=== PATIENT | male | born 2000 | race Hispanic/Latino ===

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

== ENCOUNTER 2024-06-19 17:10 | Inpatient (IN) | payer SELFPAY ==
[~2024-06-19] VITALS: Ht 167.6 cm; Wt 75.0 kg
--- NOTE | 2024-06-19 17:25 | ERN ---
ED Note History of Present Illness Stated Complaint: NAUSEA Chief Complaint: Nausea,Vomiting,Diarrhea Time Seen by MD: 17:13 Time Seen by Midlevel: 17:13 Dictation: The patient is a 23-year-old male with a history of gastritis and THC abuse who presents to the emergency department with complaints of a right upper and lower abdominal pain, nausea, nonbloody vomiting, diarrhea onset two weeks ago. Patient denies any fevers. Reports last THC abuse yesterday. Denies any urinary discomfort. Allergies: Coded Allergies: metoclopramide (Unverified Allergy, Unknown, 06/19/24) Past Medical History Past Medical History: No Pertinent History Surgical History: None RN Note Reviewed/Agreed w/PFSH: Yes Review of System Dictation Constitutional: Negative for fever,chills, and weight loss Eyes: Negative for injury, pain,redness, and discharge ENT: Negative for injury,pain or swelling Cardiovascular: Negative for chest pain, palpitations, and edema Respiratory: Negative for shortness of breath, cough, and wheezing, Abdomen/GI: Negative for constipation positive for nausea vomiting diarrhea abdominal pain Back: Negative for injury and pain : Negative for injury, bleeding and discharge MS/Extremity: Negative for injury and deformity Skin: Negative for rash, and discoloration Neuro: Negative for headache, weakness, numbness, tingling, and seizure Psych: Negative for suicide ideation, homicidal ideation, and hallucinations Initial Vital Sign VS Vital Signs Date Time Temp Pulse Resp B/P (MAP) Pulse Ox O2 Delivery O2 Flow Rate FiO2 06/19/24 17:12 98.1 116 16 146/101 98 Room Air 0 Physical Exam Dictation Vital Signs reviewed General Appearance: Alert, oriented x 3, no acute distress, well developed, nourished. Head and Face: non-traumatic. Eyes: PERRL, pink conjunctivas, eyelid no trauma, anterior chamber with arcus senilis. Ears: Pinnas intact and no signs of trauma or erythema ear canals clear and no discharge TM no erythema Nose: No discharge, no bleeding. Oropharynx: Mouth normal, tongue pink. pharynx clear,no erythema, tonsils no exudates, no abscesses noted, mucous membrane moist Neck: Supple, non-tender, no thyromegaly, no masses, no JVD, no bruits Breast:Deferred Chest:No tenderness, no crepitus, no paradoxical movement, no retractions Lungs:Clear, well-ventilated, symmetric, no rales, no wheezing, no rhonchi, no stridor, good breath sounds bilaterally Heart: Regular rate, regular rhythm, no murmur, no gallops Vascular: no peripheral edema, Abdomen: Soft, positive bowel sounds, nondistended, no guarding, nontender, no rebound, no masses no hepatomegaly, no splenomegaly, no Jung's sign, no hernias. Rectal: Deferred Genital: Deferred Neurological: Normal speech, motor function intact, sensory function intact Musculoskeletal: Neck nontender, full range of motion, back nontender, full range of motion, Extremities: nontender, full range of motion Skin: Color pink, dry, no turgor, no rash, no lacerations, no abrasions, no contusions. Lymphatic: Deferred Results (Laboratory/Radiology) Laboratory/Radiology Laboratory Tests Test 06/19/24 11:24 White Blood Count 9.2 K/uL (4.8-10.8) Red Blood Count 5.96 MIL/uL (4.50-6.20) Hemoglobin 17.5 g/dL (14.0-18.0) Hematocrit 52.1 % (42-54) Mean Corpuscular Volume 87.4 fL (79-99) Mean Corpuscular Hemoglobin 29.4 pg (27.0-33.0) Mean Corpuscular Hemoglobin Concent 33.6 g/dL (32.0-36.0) Red Cell Distribution Width 13.2 % (11.0-15.5) Platelet Count 338 K/uL (130-400) Mean Platelet Volume 10.4 fL (7.5-10.5) Immature Granulocyte % (Auto) 0.4 % (0-1) Neutrophils (%) (Auto) 90.3 % (40.0-77.0) H Lymphocytes (%) (Auto) 3.7 % (21.0-51.0) L Monocytes (%) (Auto) 5.4 % (3.0-13.0) Eosinophils (%) (Auto) 0.0 % (0.0-8.0) Basophils (%) (Auto) 0.2 % (0.0-5.0) Neutrophils # (Auto) 8.3 K/uL (1.8-7.7) H Lymphocytes # (Auto) 0.3 K/uL (1.0-4.8) L Monocytes # (Auto) 0.5 K/uL (0.1-1.0) Eosinophils # (Auto) 0.00 K/uL (0.00-0.70) Basophils # (Auto) 0.02 K/uL (0.00-0.20) Absolute Immature Granulocyte (auto 0.04 K/uL (0-1) Nucleated Red Blood Cells 0.0 % (0.0-0.19) White Cell Morphology Comment See comments Sodium Level 138 mmol/L (136-145) Potassium Level 3.5 mmol/L (3.5-5.1) Chloride Level 95 mmol/L (101-111) L Carbon Dioxide Level 29 mmol/L (21-32) Blood Urea Nitrogen 22 mg/dL (7-18) H Creatinine 2.3 mg/dL (0.5-1.3) H Glomerular Filtration Rate Calc 40 mL/min (>90) Random Glucose 178 mg/dL (70-105) H Total Calcium 11.2 mg/dL (8.5-10.1) H Magnesium Level 2.20 mg/dL (1.80-2.40) Total Bilirubin 0.5 mg/dL (0.2-1.0) Direct Bilirubin 0.1 mg/dL (0.0-0.3) Aspartate Amino Transf (AST/SGOT) 23 U/L (10-37) Alanine Aminotransferase (ALT/SGPT) 38 U/L (12-78) Alkaline Phosphatase 108 U/L (50-136) Total Protein 10.3 g/dL (6.0-8.3) H Albumin 5.1 g/dL (3.5-5.0) H Lipase 13 U/L (16-77) L Labs Reviewed?: Yes ED Course ED Course Orders Procedure Category Date Status Time Cbc With Differential LAB 06/19/24 Complete 17:22 Urinalysis Profile LAB 06/19/24 Logged 17:22 0.9%Nacl 1000ml (Ns PHA 06/19/24 Complete 1000ml) 17:30 Ondansetron 4mg Inj PHA 06/19/24 Complete (Zofran 4mg Inj) 17:30 Pantoprazole 40mg Inj PHA 06/19/24 Complete (Protonix 40mg Inj 17:30 Lipase LAB 06/19/24 Complete 17: Basic Metabolic Panel LAB 06/19/24 Complete : Drug Screen Urine LAB 06/19/24 Logged : Hepatic Function Panel LAB 06/19/24 Complete : Magnesium LAB 06/19/24 Complete : Admit Orders ADM 06/19/24 Verified 20:42 Edm Admit Bridge Order ADM 06/19/24 Verified 20:42 Current Medications Medications (Trade) Dose Ordered Sig/Bee Route PRN Reason Start Time Stop Time Status Last Admin Dose Admin Ondansetron HCl (zoFRAN 4MG INJ) 4 mg ONCE ONCE IVP 06/19/24 17:30 06/19/24 17:31 DC Pantoprazole Sodium (PROTonix 40MG INJ) 40 mg ONCE ONCE IVP 06/19/24 17:30 06/19/24 17:31 DC Sodium Chloride 1,000 ml @ 0 mls/hr ONCE ONCE IV 06/19/24 17:30 06/19/24 17:31 DC Vital Signs Date Time Temp Pulse Resp B/P (MAP) Pulse Ox O2 Delivery O2 Flow Rate FiO2 06/19/24 17:12 98.1 116 16 146/101 98 Room Air 0 Medical Decision Making [facility] The patient is a 23-year-old male with a history of gastritis and THC abuse who presents to the emergency department with complaints of a right upper and lower abdominal pain, nausea, nonbloody vomiting, diarrhea onset two weeks ago. Patient denies any fevers. Reports last THC abuse yesterday. Denies any urinary discomfort. CBC showed no leukocytosis, no anemia, chemistry showed elevated BUN and creatinine, changed from previous admissions, hypochloremia. Patient will be admitted for hydration in management of acute kidney injury. Patient with a nontender abdomen to palpation. Differential diagnosis: Gastroenteritis, THC hyperemesis, electrolyte imbalance, dehydration Comorbidities: Gastritis, THC abuse Tests considered and not ordered secondary to shared decision making include: none Previous outside records reviewed: none Risk of complication and/or morbidity or mortality of patient management: The patient meets criteria for admission. Need for emergency major/minor surgery: No There are no social concerns with this patient. I independently interpreted the tests I ordered (labs, urinalysis, etc.). I discussed the case with the hospitalist for admission. ARNOLDO who accepts admission I discussed the case with the following specialists: none. Historian: [email or web address]. I independently interpreted imaging studies and EKGs that I ordered (US, CT, XR, EKG, etc.). External chart review: none. Medical management and examination interpretation discussions were had by me with other qualified healthcare professionals as indicated for the patient's care. DX & DISP Disposition: Inpatient Decision to Admit Date: Jun 19, 2024 Decision to Admit Time: 20:45 Departure Impression: Primary Impression: Acute kidney injury Additional Impressions: Dehydration, Gastroenteritis, Tetrahydrocannabinol (THC) dependence Condition: Stable Referrals: REINALDO JIMÉNEZ MD (PCP) I have reviewed the case, and I agree with, Diagnosis and Plan DIEGO JAMISON Jun 19, 2024 17:24
[2024-06-19 18:33] LABS: BASOPHILS # (AUTO) 0.02 K/uL (0.00-0.20); BASOPHILS % (AUTO) 0.2 % (0.0-5.0); HEMATOCRIT 52.1 % (42-54); IMMATURE GRANULOCYTE ABSOLUTE 0.04 K/uL (0-1); LYMPHOCYTES # (AUTO) 0.3 K/uL (1.0-4.8); LYMPHOCYTES % (AUTO) 3.7 % (21.0-51.0); MEAN CORPUSCULAR HEMOGLOBIN 29.4 pg (27.0-33.0); MEAN CORPUSCULAR HGB CONC 33.6 g/dL (32.0-36.0); MEAN CORPUSCULAR VOLUME 87.4 fL (79-99); MONOCYTES # (AUTO) 0.5 K/uL (0.1-1.0); MONOCYTES % (AUTO) 5.4 % (3.0-13.0); NEUTROPHILS # (AUTO) 8.3 K/uL (1.8-7.7); NEUTROPHILS % (AUTO) 90.3 % (40.0-77.0); PLATELET COUNT (AUTO) 338 K/uL (130-400); RED BLOOD CELL COUNT(AUTO) 5.96 MIL/uL (4.50-6.20); RED CELL DISTRIBUTION WIDTH 13.2 % (11.0-15.5); WHITE BLOOD COUNT (AUTO) 9.2 K/uL (4.8-10.8)
[2024-06-19 18:43] LABS: CREATININE 2.3 mg/dL (0.5-1.3); POTASSIUM 3.5 mmol/L (3.5-5.1)
[2024-06-19 18:48] LABS: ALBUMIN 5.1 g/dL (3.5-5.0); BILIRUBIN,DIRECT 0.1 mg/dL (0.0-0.3); BILIRUBIN,TOTAL 0.5 mg/dL (0.2-1.0); MAGNESIUM 2.2 mg/dL (1.80-2.40); TOTAL PROTEIN, SERUM 10.3 g/dL (6.0-8.3)
--- NOTE | 2024-06-19 21:50 | HP ---
[facility] HISTORY AND PHYSICAL Date of Service: Jun 19, 2024 Time of Service: 21:50 HISTORY OF PRESENT ILLNESS: [ The patient is a 23-year-old male presents to ED with complains of progressively worsening right upper quadrant pain associated with intractable nausea and vomiting for the past two days. The patient describes the pain as sharp, constant and radiating to the back with an intensity of 8 out of 10. Patient also reports that the pain is exacerbated by eating and drinking. The patient reports multiple episodes of non-bloody, non-bilious vomiting which have been relieved with Zofran on admission. Patient denies chills, fever, chest pain or shortness of breath. Patient also denies recent trauma, significant changes in bowel habits. Patient reports no esophageal or gastric conditions. He does reports history of THC use. . Patient is lying in bed, comfortably, pain has resolved with IV morphine. He appears in no acute cardiorespiratory distress. His vital signs includes temperature of 98.1, heart rate of 116, blood pressure of 146/101, and oxygen saturation of 98 on RA. His blood work up revealed acute kidney injury with BUN of 22, creatinine of 2.3, glucose 178, protein of 10.[address] of the abdomen and pelvis showed critical pneumomediastinum and retroperitoneal emphysema. CTS, was consulted. Patient will be transferred to higher level of care for possible emergency surgical intervention. ] REVIEW OF SYSTEMS CONSTITUTIONAL: Denies fevers, chills, or night sweats. No unintentional weight loss reported. NEUROLOGICAL: Denies headache, amaurosis fugax, motor weakness, sensory deficit, vertigo/spinning sensation, gait abnormalities, or tremors. ENT: No hearing loss, otalgia, otorrhea, rhinitis, rhinorrhea, hoarseness, or sore throat. CARDIOVASCULAR: Denies any exertional angina, dyspnea on exertion, orthopnea, paroxysmal nocturnal dyspnea, palpitations, life-threatening arrhythmias, claudication. PULMONARY: Denies any shortness of breath, cough, phlegm/sputum, hemoptysis, pleuritic chest pain. SLEEP: Denies morning headaches, daytime somnolence or napping. Denies difficulty falling asleep, staying asleep, waking from sleep. Denies knowledge of snoring. GASTROINTESTINAL: Denies any type of dysphagia to either liquids or solids. Positive for nausea, vomiting, pyrosis, early satiety, abdominal pain, diarrhea, constipation, or changes in stool consistency or caliber. Denies coffee-ground emesis, hematemesis, hematochezia, or melanotic stools. GENITOURINARY: Denies frequency, urgency, nocturia, hematuria or incontinence (Storage/Irritative symptoms.) Low urinary stream, straining to void, urinary intermittency or hesitancy, splitting of the voiding stream, terminal dribbling. ENDOCRINOLOGIC: Denies polyuria, polydipsia, polyphagia or heat/cold intolerances. HEMATOLOGIC: Denies thrombophilia/previous clots, or coagulopathy/bleeding disorders. ONCOLOGIC: Denies personal history of malignancy. DERMATOLOGIC: Denies rashes or pruritus. PSYCHIATRIC: Denies any suicidal or homicidal ideation. Denies hallucinations. PAST MEDICAL HISTORY: [ Intractable nausea and vomiting THC use ] PAST SURGICAL HISTORY: [Denies ] PAST SOCIAL HISTORY: [ Patient lives at home with grandmother who is at his bedside. Patient reports he is 100% independent with ADLs and does not requires assistance with ambulation. Patient denies the use of tobacco products, denies the use of alcohol. He admits to THC use occasionally. ] FAMILY HISTORY: [ Non-reported ] Coded Allergies: metoclopramide (Unverified Allergy, Unknown, 06/19/24) PHYSICAL EXAM GENERAL APPEARANCE: The patient is awake, alert, and oriented, in no acute cardiopulmonary distress. NEUROLOGICAL: Cranial nerves II-XII grossly intact. Motor is 5/5 in bilateral upper and lower extremities proximal to distal. No sensory deficits. HEENT: Face is symmetric. Pupils are equal and reactive. Extraocular movements are intact. NECK: Supple. No JVD. No thyromegaly. No submental, submandibular, pre- /postauricular, occipital or supraclavicular lymphadenopathy. CHEST: Normal chest expansion. No Telemetry. LUNGS: Absence of any rales, rhonchi or any wheezing. CARDIOVASCULAR: Regular. S1 and S2 normal. No appreciable rubs, murmurs or gallops. ABDOMEN: Soft, nontender, and nondistended. There is no rebound, voluntary guarding, or rigidity. : Deferred. No Iglesias. EXTREMITIES: Non-edematous and not cyanotic. No clubbing. Good capillary refill. SKIN: No skin breakdown. Vital Sign (Last 24 Hours) 06/19/24 17:12 Temp 98.1 Pulse 116 Resp 16 B/P (MAP) 146/101 Pulse Ox 98 O2 Delivery Room Air O2 Flow Rate 0 LABS: Laboratory: Test 06/19/24 11:24 Range/Units White Blood Count 9.2 4.8-10.8 K/uL Red Blood Count 5.96 4.50-6.20 MIL/uL Hemoglobin 17.5 14.0-18.0 g/dL Hematocrit 52.1 42-54 % Mean Corpuscular Volume 87.4 79-99 fL Mean Corpuscular Hemoglobin 29.4 27.0-33.0 pg Mean Corpuscular Hemoglobin Concent 33.6 32.0-36.0 g/dL Red Cell Distribution Width 13.2 11.0-15.5 % Platelet Count 338 130-400 K/uL Mean Platelet Volume 10.4 7.5-10.5 fL Immature Granulocyte % (Auto) 0.4 0-1 % Neutrophils (%) (Auto) 90.3 H 40.0-77.0 % Lymphocytes (%) (Auto) 3.7 L 21.0-51.0 % Monocytes (%) (Auto) 5.4 3.0-13.0 % Eosinophils (%) (Auto) 0.0 0.0-8.0 % Basophils (%) (Auto) 0.2 0.0-5.0 % Neutrophils # (Auto) 8.3 H 1.8-7.7 K/uL Lymphocytes # (Auto) 0.3 L 1.0-4.8 K/uL Monocytes # (Auto) 0.5 0.1-1.0 K/uL Eosinophils # (Auto) 0.00 0.00-0.70 K/uL Basophils # (Auto) 0.02 0.00-0.20 K/uL Absolute Immature Granulocyte (auto 0.04 0-1 K/uL Nucleated Red Blood Cells 0.0 0.0-0.19 % White Cell Morphology Comment See comments Sodium Level 138 136-145 mmol/L Potassium Level 3.5 3.5-5.1 mmol/L Chloride Level 95 L 101-111 mmol/L Carbon Dioxide Level 29 21-32 mmol/L Blood Urea Nitrogen 22 H 7-18 mg/dL Creatinine 2.3 H 0.5-1.3 mg/dL Glomerular Filtration Rate Calc 40 >90 mL/min Random Glucose 178 H 70-105 mg/dL Total Calcium 11.2 H 8.5-10.1 mg/dL Magnesium Level 2.20 1.80-2.40 mg/dL Total Bilirubin 0.5 0.2-1.0 mg/dL Direct Bilirubin 0.1 0.0-0.3 mg/dL Aspartate Amino Transf (AST/SGOT) 23 10-37 U/L Alanine Aminotransferase (ALT/SGPT) 38 12-78 U/L Alkaline Phosphatase 108 50-136 U/L Total Protein 10.3 H 6.0-8.3 g/dL Albumin 5.1 H 3.5-5.0 g/dL Lipase 13 L 16-77 U/L DIAGNOSTICS / RADIOLOGY: [ CT Abdomen and pelvis without contrast revealed pneumomediastinum and retroperitoneal emphysema ] ASSESSMENT: [ Pneumomediastinum and retroperitoneal emphysema POA Intractable right upper quadrant pain POA Intractable nausea and vomiting POA Acute kidney injury POA Electrolyte derangement POA THC dependency ] PLAN: [ Admit patient to ICU Critical care consulted Started Vancomycin and Zosyn per protocol for kidney function PRN medication for nausea, vomiting, pain as needed Consulted cardiothoracic surgeon for further recommendations for possible urgent surgical intervention Patient will be transferred to higher level care facility for CTS evaluation and treatment. Current Medications Medications (Trade) Dose Ordered Sig/Bee Route PRN Reason Start Time Stop Time Status Last Admin Acetaminophen (TYLenol 325MG TAB) 650 mg Q6H PRN PO TEMPERATURE GREATER THAN 101.5 06/20/24 02:00 07/20/24 01:59 Acetaminophen (TYLenol 325MG TAB) 650 mg Q4H PRN PO MILD PAIN (1-3) 06/20/24 02:00 07/20/24 01:59 Ondansetron HCl (zoFRAN 4MG INJ) 4 mg Q6H PRN IV NAUSEA/VOMITING 06/20/24 02:00 07/20/24 01:59 Sodium Chloride 1,000 ml @ 100 mls/hr Q10H IV 06/20/24 02:00 07/20/24 01:59 06/20/24 02:23 Hydromorphone HCl (DiLAUDid 1MG INJ) 0.5 mg Q4H PRN IV SEVERE PAIN (7-10) IF NPO 06/20/24 02:00 06/25/24 01:59 Famotidine (Pepcid 20mg Vial) 20 mg Q24H IV 06/20/24 09:00 07/20/24 08:59 Acetaminophen/ Codeine Phosphate (TYLenol-coDEINE TAB) 1 tab Q6H PRN PO MODERATE PAIN (4-6) 06/20/24 02:00 07/20/24 01:59 Acetaminophen/ Codeine Phosphate (TYLenol-coDEINE TAB) 2 tab Q6H PRN PO SEVERE PAIN (7-10) 06/20/24 02:00 07/20/24 01:59 Piperacillin Sod/ Tazobactam Sod (Zosyn 3.375gm+NS 50ml) 3.375 gm Q8H IVPB 06/20/24 03:30 06/30/24 03:29 06/20/24 03:22 Vancomycin HCl (Vancomycin Protocol) 1 each AD IV 06/20/24 04:00 07/04/24 03:59 UNV ADVANCED CARE PLANNING 1. Which of the following were discussed? Hospice Care - Yes / No Therapeutic options - Yes / No Advance Directives - Yes / No Other discussions - 2. Discussed with who? patient and grandmother 3. Voluntary nature of this service was explained to the patient? Yes / No 4. Amount of time spent - ___30 min ____ 5. Reviewed by Physician? (if this service was performed by NPP) Yes / No ] ATTESTATION BY PHYSICIAN I have seen and examined the patient. I reviewed the documentation, medical decision making, and treatment plan as noted by the mid-level provider above. I agree with the findings and plan of care. REE ARREDONDO MD, MARIA I JAVA [employer] DEVELOPER Jun 19, 2024 21:50
[2024-06-19] MEDS: ondanSETRON 4MG INJ IVP ONE ×2 (22:03→22:07)
[2024-06-19] MEDS: PANTOPrazole 40 MG/VIAL IVP ONE ×2 (22:04→22:06)
[2024-06-19] MEDS: 0.9%NACL 1000ML 1,000 ML IV ONE ×2 (22:04→22:06)
--- NOTE | 2024-06-19 22:06 | NUR ---
PROTONIX 40MG IS DOCUMENTED IN ERROR [id number]. MEDICATION WAS ADMINISTERED AT 2204 AND NOT ADMINISTERED A SECOND TIME AT 2206.
--- NOTE | 2024-06-19 22:43 | NUR ---
Assumed care at this time, patient presents with nausea and vomiting. Reported some abdominal pain earlier. Last bowel movement was this AM, reported to be watery, denies antibiotic useage. Pain was more on the right side. Denies urinary symptoms. Admits to smoking weed and reports he gets like this when he does it.
--- NOTE | 2024-06-20 00:06 | NUR ---
Patient given PO fluids, tolerated well.
--- NOTE | 2024-06-20 00:11 | NUR ---
Patient marked as admit, pending admission orders from admitting provider. Patient resting comfortably in fast track recliner. No distress noted, family member with patient.
--- NOTE | 2024-06-20 00:33 | NUR ---
Patient moved to ED bed room 1, pending admit orders at this time.
--- NOTE | 2024-06-20 01:03 | NUR ---
Report given to SYLVAIN VelascoN
[2024-06-20] MEDS ORDERED: acetaMINOPHEN WITH coDEINE 1 TAB TAB PO PRN (02:00)
[2024-06-20] MEDS ORDERED: acetaMINOPHEN 325 MG TAB PO PRN ×2 (02:00)
[2024-06-20] MEDS: 0.9%NACL 1000ML 1,000 ML IV SCH (02:23)
[2024-06-20] MEDS: cefTRIAXone 1G VIAL IV SCH (02:23)
[2024-06-20] MEDS ORDERED: 0.9%NACL 50ML IV SCH (03:00)
--- NOTE | 2024-06-20 03:11 | NUR ---
PATIENT REPORTS HE DOES NOT TAKE ANY PRESCRIBED MEDICATIONS
[2024-06-20] MEDS: ZOSYN 3.375GM +NS 50ML IVPB SCH (03:22)
--- NOTE | 2024-06-20 03:22 | ERN ---
CONSULTATION NOTE DATE OF ER CONSULTATION: DATE: 06/20/24 REASON FOR CONSULTATION: Was given a around 3:00 a.m.. Was given stat rad report. Of patient with pneumomediastinum and retroperitoneal emphysema. Patient was admitted gastroenteritis and ROBBIE. Immediately had spoke to admitting team Gemini zhong. And also to add page Dr. Jaimes he did not answer. I spoke to housekeeping supervisor hotel. We will do continue to page Dr. Jaimes. Also starting vinny and Robin. And also told as well Gamble the page her supervising physician critical care of Dr. hussein and/or also two to transfer to [facility]. Cardiothoracic may be covered also by [facility]. Against speaking with the nurse and house and admitting team to admit to a higher level Total critical care time was 33 minutes. Excluding time for procedures. Management of critically ill patient with concern for acute decompensation. Management included interpretation of laboratory values and imaging, hemodynamics, time for consultation with consultants and admitting physician. For observation and/or possible surgery patient uses and fluid hydration ALLERGIES: Coded Allergies: metoclopramide (Unverified Allergy, Unknown, 06/19/24) VITAL SIGNS Vital Signs Date Time Temp Pulse Resp B/P (MAP) Pulse Ox O2 Delivery O2 Flow Rate FiO2 06/20/24 02:41 98.4 61 18 157/83 100 Room Air* 0 21 06/20/24 00:06 98.4 17 158/99 100 Room Air* 0 21 06/19/24 22:41 98.4 88 17 169/104 100 Room Air* 0 06/19/24 17:12 98.1 116 16 146/101 98 Room Air 0 PHYSICAL EXAM Patient's physical exam is currently benign he is not have any abdominal pain no acute distress nontoxic appearing vitals are stable. He is not have any pain anywhere else he said he feels fine a we spoke about transferring to a higher level care LABORATORY RESULTS Laboratory Tests 06/19/24 11:24: White Blood Count 9.2, Red Blood Count 5.96, Hemoglobin 17.5, Hematocrit 52.1, Mean Corpuscular Volume 87.4, Mean Corpuscular Hemoglobin 29.4, Mean Corpuscular Hemoglobin Concent 33.6, Red Cell Distribution Width 13.2, Platelet Count 338, Mean Platelet Volume 10.4, Immature Granulocyte % (Auto) 0.4, Neutrophils (%) (Auto) 90.3, Lymphocytes (%) (Auto) 3.7, Monocytes (%) (Auto) 5.4, Eosinophils (%) (Auto) 0.0, Basophils (%) (Auto) 0.2, Neutrophils # (Auto) 8.3, Lymphocytes # (Auto) 0.3, Monocytes # (Auto) 0.5, Eosinophils # (Auto) 0.00, Basophils # (Auto) 0.02, Absolute Immature Granulocyte (auto 0.04, Nucleated Red Blood Cells 0.0, White Cell Morphology Comment See comments, Sodium Level 138, Potassium Level 3.5, Chloride Level 95, Carbon Dioxide Level 29, Blood Urea Nitrogen 22, Creatinine 2.3, Glomerular Filtration Rate Calc 40, Random Glucose 178, Total Calcium 11.2, Magnesium Level 2.20, Total Bilirubin 0.5, Direct Bilirubin 0.1, Aspartate Amino Transf (AST/SGOT) 23, Alanine Aminotransferase (ALT/SGPT) 38, Alkaline Phosphatase 108, Total Protein 10.3, Albumin 5.1, Lipase 13 PREMA CHAUDHRY MD Jun 20, 2024 03:22
[2024-06-20] MEDS: hydroMORPHone 1 MG INJ IV PRN (03:44)
[2024-06-20] MEDS: ondanSETRON 4MG INJ IV PRN (03:48)
--- NOTE | 2024-06-20 03:49 | NUR ---
Lolly VINES HOTEL [employer] CON[employer]ER[employer] MADE AWARE OF CRITICAL CARE CONSULT
[2024-06-20] MEDS: HALOPERIDOL INJ 5 MG/ML VIAL IM ONE (03:53)
--- NOTE | 2024-06-20 03:55 | ERN ---
CONSULTATION NOTE DATE OF ER CONSULTATION: DATE: 06/20/24 ALLERGIES: Coded Allergies: metoclopramide (Unverified Allergy, Unknown, 06/19/24) VITAL SIGNS Vital Signs Date Time Temp Pulse Resp B/P (MAP) Pulse Ox O2 Delivery O2 Flow Rate FiO2 06/20/24 02:41 98.4 61 18 157/83 100 Room Air* 0 06/20/24 00:06 98.4 17 158/99 100 Room Air* 0 06/19/24 22:41 98.4 88 17 169/104 100 Room Air* 0 06/19/24 17:12 98.1 116 16 146/101 98 Room Air 0 PHYSICAL EXAM Patient's physical exam is currently benign he is not have any abdominal pain no acute distress nontoxic appearing vitals are stable. He is not have any pain anywhere else he said he feels fine a we spoke about transferring to a higher level care LABORATORY RESULTS Laboratory Tests 06/19/24 11:24: White Blood Count 9.2, Red Blood Count 5.96, Hemoglobin 17.5, Hematocrit 52.1, Mean Corpuscular Volume 87.4, Mean Corpuscular Hemoglobin 29.4, Mean Corpuscular Hemoglobin Concent 33.6, Red Cell Distribution Width 13.2, Platelet Count 338, Mean Platelet Volume 10.4, Immature Granulocyte % (Auto) 0.4, Neutrophils (%) (Auto) 90.3, Lymphocytes (%) (Auto) 3.7, Monocytes (%) (Auto) 5.4, Eosinophils (%) (Auto) 0.0, Basophils (%) (Auto) 0.2, Neutrophils # (Auto) 8.3, Lymphocytes # (Auto) 0.3, Monocytes # (Auto) 0.5, Eosinophils # (Auto) 0.00, Basophils # (Auto) 0.02, Absolute Immature Granulocyte (auto 0.04, Nucleated Red Blood Cells 0.0, White Cell Morphology Comment See comments, Sodium Level 138, Potassium Level 3.5, Chloride Level 95, Carbon Dioxide Level 29, Blood Urea Nitrogen 22, Creatinine 2.3, Glomerular Filtration Rate Calc 40, Random Glucose 178, Total Calcium 11.2, Magnesium Level 2.20, Total Bilirubin 0.5, Direct Bilirubin 0.1, Aspartate Amino Transf (AST/SGOT) 23, Alanine Aminotransferase (ALT/SGPT) 38, Alkaline Phosphatase 108, Total Protein 10.3, Albumin 5.1, Lipase [address] Jaimes multiples times, had not answered. Then we went on the 2nd on the list it was Dr. Mariah Levy and he recommended patient be transferred to [facility] spoke to patient and spoke to the nurse in charge nurse and junior legal secretary. It for to start transfer PREMA CHAUDHRY MD Jun 20, 2024 03:55
[2024-06-20] MEDS ORDERED: VANCOMYCIN PROTOCOL PER PHARMACY IV SCH (04:00)
[2024-06-20] MEDS: VANCOMYCIN 2GM/500 ML BAG 500 ML IV ONE (04:33)
[2024-06-20 05:18] LABS: BASOPHILS # (AUTO) 0.01 K/uL (0.00-0.20); BASOPHILS % (AUTO) 0.1 % (0.0-5.0); HEMATOCRIT 45.9 % (42-54); IMMATURE GRANULOCYTE ABSOLUTE 0.03 K/uL (0-1); LYMPHOCYTES # (AUTO) 0.6 K/uL (1.0-4.8); LYMPHOCYTES % (AUTO) 8.1 % (21.0-51.0); MEAN CORPUSCULAR HEMOGLOBIN 29.6 pg (27.0-33.0); MEAN CORPUSCULAR HGB CONC 33.8 g/dL (32.0-36.0); MEAN CORPUSCULAR VOLUME 87.8 fL (79-99); MONOCYTES # (AUTO) 1.1 K/uL (0.1-1.0); MONOCYTES % (AUTO) 14.4 % (3.0-13.0); NEUTROPHILS # (AUTO) 5.8 K/uL (1.8-7.7); PLATELET COUNT (AUTO) 297 K/uL (130-400); RED BLOOD CELL COUNT(AUTO) 5.23 MIL/uL (4.50-6.20); RED CELL DISTRIBUTION WIDTH 13.2 % (11.0-15.5); WHITE BLOOD COUNT (AUTO) 7.5 K/uL (4.8-10.8)
--- NOTE | 2024-06-20 05:20 | NUR ---
TRANSFER REQUEST INITIATED TO [facility] [place] AT THIS TIME.
[2024-06-20 05:34] LABS: ALBUMIN 4.2 g/dL (3.5-5.0); BILIRUBIN,TOTAL 0.5 mg/dL (0.2-1.0); CREATININE 1.3 mg/dL (0.5-1.3); POTASSIUM 4.1 mmol/L (3.5-5.1); TOTAL PROTEIN, SERUM 8.1 g/dL (6.0-8.3)
[2024-06-20 05:39] LABS: HEMOGLOBIN A1C 5.6 % (4.0-6.0)
--- NOTE | 2024-06-20 06:02 | NUR ---
RECEIVED CALL FROM [facility]. TRANSFER DENIED DUE TO COMPLEXITY OF CASE PER CARDIOTHORACIC SURGEON [employer]OT[employer] SALES MANAGER.
--- NOTE | 2024-06-20 06:09 | NUR ---
TRANSFER REQUEST INITIATED AT THIS TIME TO [facility].
--- NOTE | 2024-06-20 08:39 | HMCIMG ---
Exam Type: CHEST 1VW Clinical Information: pneumomediastinum per CT abd Comparison: None Findings: The lungs are clear of infiltrates. The heart is enlarged. Bony and soft tissue structures of the chest wall are unremarkable. IMPRESSION: Cardiomegaly. Clear lungs.
--- NOTE | 2024-06-20 08:51 | HMCIMG ---
Exam Type: CT ABDOMEN/PELVIS W/O CONTRAST Clinical Information: right upper quadrant pain, Comparison: None CT Dose Index (CTDI): 10.20 mGy Dose Length Product (DLP): 530.00 total mGy-cm PROTOCOL: Routine noncontrast helical scanning of the abdomen and pelvis was performed at 5mm collimation. Findings: No evidence of nephro or ureterolithiasis is found. No hydronephrosis or ureteral dilatation is seen. The lung bases are clear. There is mild pneumomediastinum. The stomach is unremarkable. It shows no wall thickening. No gross ulceration is seen. It is not overly distended. There are no surrounding inflammatory changes. No wall lesions are identified to suggest cancer. The spleen is unremarkable. It is not enlarged. The pancreas shows normal anatomy. It is not fatty replaced. It shows no lesions. The pancreatic duct is not dilated. The gallbladder is unremarkable. It shows no cholelithiasis. The gallbladder wall is normal in thickness. There is no pericholecystic fluid. The is no acute or chronic inflammation noted. The adrenal glands are unremarkable. There is no enlargement. No lesions are noted. The liver is unremarkable. It shows no focal masses. The appendix is unremarkable. It shows no evidence of inflammation. No appendicolith is seen. The small bowel is unremarkable. There is no evidence of dilatation to suggest obstruction. No evidence of adynamic ileus is seen. There is no small bowel wall thickening to suggest enteritis. The colon is unremarkable. The urinary bladder is unremarkable. There is no wall thickening to suggest tumor or inflammation. There are no intraluminal calculi. There are no diverticula. There is no evidence of chronic bladder outlet obstruction. There is no evidence of urinary bladder distention to suggest urinary retention. The other pelvic structures are unremarkable. The bony and vascular structures are unremarkable for the patient's age. IMPRESSION: Mild pneumomediastinum. Otherwise normal CT abdomen pelvis. Preliminary report with this information was sent by the on-call radiologist to ordering physicians time of exam.. This study was performed using dose reduction techniques to include automated exposure control and/or adjustment of the mA and/or kV according to patient size.
[2024-06-20] MEDS: FAMOTIDINE 20MG VIAL IV SCH (08:53)
--- NOTE | 2024-06-20 11:17 | NUR ---
DCp: POSSIBLE TRANSFER FOR HIGH LEVEL OF CARE. SW met with pt and his grandmother Rahel Wagner [phone]. Pt lives with his grandmother, works, drives, is independent of ADLS and IADLS. No in home care services, no PCP. Community resources given. Per nurse house working on possible transfer.
[2024-06-20] MEDS: acetaMINOPHEN WITH coDEINE 1 TAB TAB PO PRN (11:37)
--- NOTE | 2024-06-20 15:51 | PN ---
[facility] PROGRESS NOTE Date of Service: Jun 20, 2024 Time of Service: 15:45 SUBJECTIVE: 23-year-old male presents to ED with complains of progressively worsening right upper quadrant pain associated with intractable nausea and vomiting for the past two days. The patient describes the pain as sharp, constant and radiating to the back with an intensity of 8 out of 10. Patient also reports that the pain is exacerbated by eating and drinking. The patient reports multiple episodes of non-bloody, non-bilious vomiting which have been relieved with Zofran on admission. Patient denies chills, fever, chest pain or shortness of breath. Patient also denies recent trauma, significant changes in bowel habits. Patient reports no esophageal or gastric conditions. He does reports history of THC use. . CT of the abdomen and pelvis showed critical pneumomediastinum and retroperitoneal emphysema. CTS, was consulted. Patient will be transferred to higher level of care for possible emergency surgical intervention. Chest x-ray noted for cardiomegaly Dr. Mariah Levy and he recommended patient be transferred to [place] or [place]. [facility] center spoke to patient and spoke to the nurse in charge nurse and membership secretary, It for to start transfer. 06/20-Patient was seen at sleeping, with his mother at the bedside. Vitals afebrile pulse 63, RR 16, BP 151/85, 99 saturation on room air. WBC 7.5, HB 15.5, sodium 139, potassium 4.1, BUN25 , creatinine 1.3 . Critical care consult noted. Patient is currently on vancomycin and Zosyn. REVIEW OF SYSTEMS CONSTITUTIONAL: Denies fevers, chills, or night sweats. No unintentional weight loss reported. NEUROLOGICAL: Denies headache, amaurosis fugax, motor weakness, sensory deficit , vertigo/spinning sensation, gait abnormalities, or tremors. ENT: No hearing loss, otalgia, otorrhea, rhinitis, rhinorrhea, hoarseness, or sore throat. CARDIOVASCULAR: Denies any exertional angina, dyspnea on exertion, orthopnea, paroxysmal nocturnal dyspnea, palpitations, life-threatening arrhythmias, claudication. PULMONARY: Denies any shortness of breath, cough, phlegm/sputum, hemoptysis, pleuritic chest pain. SLEEP: Denies morning headaches, daytime somnolence or napping. Denies difficulty falling asleep, staying asleep, waking from sleep. Denies knowledge of snoring. GASTROINTESTINAL: Denies any type of dysphagia to either liquids or solids. Positive for nausea, vomiting, pyrosis, early satiety, abdominal pain, diarrhea, constipation, or changes in stool consistency or caliber. Denies coffee-ground emesis, hematemesis, hematochezia, or melanotic stools. GENITOURINARY: Denies frequency, urgency, nocturia, hematuria or incontinence (Storage/Irritative symptoms.) Low urinary stream, straining to void, urinary intermittency or hesitancy, splitting of the voiding stream, terminal dribbling. ENDOCRINOLOGIC: Denies polyuria, polydipsia, polyphagia or heat/cold intolerances. HEMATOLOGIC: Denies thrombophilia/previous clots, or coagulopathy/bleeding disorders. ONCOLOGIC: Denies personal history of malignancy. DERMATOLOGIC: Denies rashes or pruritus. PSYCHIATRIC: Denies any suicidal or homicidal ideation. Denies hallucinations. PHYSICAL EXAM GENERAL APPEARANCE: The patient is awake, alert, and oriented, in no acute cardiopulmonary distress. NEUROLOGICAL: Cranial nerves II-XII grossly intact. Motor is 5/5 in bilateral upper and lower extremities proximal to distal. No sensory deficits. HEENT: Face is symmetric. Pupils are equal and reactive. Extraocular movements are intact. NECK: Supple. No JVD. No thyromegaly. No submental, submandibular, pre- /postauricular, occipital or supraclavicular lymphadenopathy. CHEST: Normal chest expansion. No Telemetry. LUNGS: Absence of any rales, rhonchi or any wheezing. CARDIOVASCULAR: Regular. S1 and S2 normal. No appreciable rubs, murmurs or gallops. ABDOMEN: Soft, nontender, and nondistended. There is no rebound, voluntary guarding, or rigidity. : Deferred. No Iglesias. EXTREMITIES: Non-edematous and not cyanotic. No clubbing. Good capillary refill. SKIN: No skin breakdown. Vital Signs (last 8hr) Date Time Temp Pulse Resp B/P (MAP) Pulse Ox O2 Delivery O2 Flow Rate FiO2 06/20/24 11:50 99.0 63 18 151/85 99 Room Air* 0 21 06/20/24 08:17 98.2 87 20 131/71 98 Room Air* 0 21 LABS: Laboratory: Test 06/20/24 05:11 12/22/24 18:24 Range/Units White Blood Count 7.5 4.8-10.8 K/uL Red Blood Count 5.23 4.50-6.20 MIL/uL Hemoglobin 15.5 14.0-18.0 g/dL Hematocrit 45.9 42-54 % Mean Corpuscular Volume 87.8 79-99 fL Mean Corpuscular Hemoglobin 29.6 27.0-33.0 pg Mean Corpuscular Hemoglobin Concent 33.8 32.0-36.0 g/dL Red Cell Distribution Width 13.2 11.0-15.5 % Platelet Count 297 130-400 K/uL Mean Platelet Volume 10.2 7.5-10.5 fL Immature Granulocyte % (Auto) 0.4 0-1 % Neutrophils (%) (Auto) 77.0 40.0-77.0 % Lymphocytes (%) (Auto) 8.1 L 21.0-51.0 % Monocytes (%) (Auto) 14.4 H 3.0-13.0 % Eosinophils (%) (Auto) 0.0 0.0-8.0 % Basophils (%) (Auto) 0.1 0.0-5.0 % Neutrophils # (Auto) 5.8 1.8-7.7 K/uL Lymphocytes # (Auto) 0.6 L 1.0-4.8 K/uL Monocytes # (Auto) 1.1 H 0.1-1.0 K/uL Eosinophils # (Auto) 0.00 0.00-0.70 K/uL Basophils # (Auto) 0.01 0.00-0.20 K/uL Absolute Immature Granulocyte (auto 0.03 0-1 K/uL Nucleated Red Blood Cells 0.0 0.0-0.19 % Sodium Level 139 136-145 mmol/L Potassium Level 4.1 3.5-5.1 mmol/L Chloride Level 98 L 101-111 mmol/L Carbon Dioxide Level 31 21-32 mmol/L Blood Urea Nitrogen 25 H 7-18 mg/dL Creatinine 1.3 0.5-1.3 mg/dL Glomerular Filtration Rate Calc 79 >90 mL/min Random Glucose 118 H 70-105 mg/dL Hemoglobin A1c 5.6 4.0-6.0 % Estimated Average Glucose (eAG) 114 70-126 mg/dL Total Calcium 9.5 8.5-10.1 mg/dL Total Bilirubin 0.5 0.2-1.0 mg/dL Aspartate Amino Transf (AST/SGOT) 22 10-37 U/L Alanine Aminotransferase (ALT/SGPT) 32 12-78 U/L Alkaline Phosphatase 87 50-136 U/L Total Protein 8.1 # 6.0-8.3 g/dL Albumin 4.2 3.5-5.0 g/dL Procalcitonin < 0.05 L 0.05-0.5 ng/mL White Cell Morphology Comment See comments Magnesium Level 2.20 1.80-2.40 mg/dL Direct Bilirubin 0.1 0.0-0.3 mg/dL Lipase 13 L 16-77 U/L Current Medications Medications (Trade) Dose Ordered Sig/Bee Route PRN Reason Start Time Stop Time Status Last Admin Dose Admin Acetaminophen (TYLenol 325MG TAB) 650 mg Q4H PRN PO MILD PAIN (1-3) 06/20/24 02:00 07/20/24 01:59 Acetaminophen (TYLenol 325MG TAB) 650 mg Q6H PRN PO TEMPERATURE GREATER THAN 101.5 06/20/24 02:00 07/20/24 01:59 Acetaminophen/ Codeine Phosphate (TYLenol-coDEINE TAB) 1 tab Q6H PRN PO MODERATE PAIN (4-6) 06/20/24 02:00 07/20/24 01:59 06/20/24 11:37 1 TAB Acetaminophen/ Codeine Phosphate (TYLenol-coDEINE TAB) 2 tab Q6H PRN PO SEVERE PAIN (7-10) 06/20/24 02:00 07/20/24 01:59 Ceftriaxone Sodium (ROCEphine 1G INJ) 1 gm Q24H IV 06/20/24 02:00 06/20/24 03:35 DC 06/20/24 02:23 1 GM Famotidine (Pepcid 20mg Vial) 20 mg Q24H IV 06/20/24 09:00 07/20/24 08:59 06/20/24 08:53 20 MG Hydromorphone HCl (DiLAUDid 1MG INJ) 0.5 mg Q4H PRN IV SEVERE PAIN (7-10) IF NPO 06/20/24 02:00 06/25/24 01:59 06/20/24 03:44 0.5 MG Ondansetron HCl (zoFRAN 4MG INJ) 4 mg Q6H PRN IV NAUSEA/VOMITING 06/20/24 02:00 07/20/24 01:59 06/20/24 11:36 4 MG Piperacillin Sod/ Tazobactam Sod (Zosyn 3.375gm+NS 50ml) 3.375 gm Q8H IVPB 06/20/24 03:30 06/30/24 03:29 06/20/24 11:37 3.375 GM Sodium Chloride 1,000 ml @ 100 mls/hr Q10H IV 06/20/24 02:00 07/20/24 01:59 06/20/24 13:34 100 MLS/HR Sodium Chloride (NS 50ml) 50 ml AD IV 06/20/24 03:00 06/20/24 03:08 DC Vancomycin HCl 250 ml @ 125 mls/hr Q24H IV 06/21/24 04:30 07/01/24 04:29 Vancomycin HCl (Vancomycin Protocol) 1 each AD IV 06/20/24 04:00 07/04/24 03:59 DIAGNOSTICS / RADIOLOGY: [ ] ASSESSMENT: Pneumomediastinum and retroperitoneal emphysema POA Intractable right upper quadrant pain POA Intractable nausea and vomiting POA Acute kidney injury POA Electrolyte derangement POA THC dependency ] PLAN: Transfer the patient to [facility] for surgery. Current Medications Medications (Trade) Dose Ordered Sig/Bee Route PRN Reason Start Time Stop Time Status Last Admin Acetaminophen (TYLenol 325MG TAB) 650 mg Q6H PRN PO TEMPERATURE GREATER THAN 101.5 06/20/24 02:00 07/20/24 01:59 Acetaminophen (TYLenol 325MG TAB) 650 mg Q4H PRN PO MILD PAIN (1-3) 06/20/24 02:00 07/20/24 01:59 Ondansetron HCl (zoFRAN 4MG INJ) 4 mg Q6H PRN IV NAUSEA/VOMITING 06/20/24 02:00 07/20/24 01:59 Sodium Chloride 1,000 ml @ 100 mls/hr Q10H IV 06/20/24 02:00 07/20/24 01:59 06/20/24 02:23 Hydromorphone HCl (DiLAUDid 1MG INJ) 0.5 mg Q4H PRN IV SEVERE PAIN (7-10) IF NPO 06/20/24 02:00 06/25/24 01:59 Famotidine (Pepcid 20mg Vial) 20 mg Q24H IV 06/20/24 09:00 07/20/24 08:59 Acetaminophen/ Codeine Phosphate (TYLenol-coDEINE TAB) 1 tab Q6H PRN PO MODERATE PAIN (4-6) 06/20/24 02:00 07/20/24 01:59 Acetaminophen/ Codeine Phosphate (TYLenol-coDEINE TAB) 2 tab Q6H PRN PO SEVERE PAIN (7-10) 06/20/24 02:00 07/20/24 01:59 Piperacillin Sod/ Tazobactam Sod (Zosyn 3.375gm+NS 50ml) 3.375 gm Q8H IVPB 06/20/24 03:30 06/30/24 03:29 06/20/24 03:22 Vancomycin HCl (Vancomycin Protocol) 1 each AD IV 06/20/24 04:00 07/04/24 03:59 UNV ATTESTATION BY PHYSICIAN I have seen and examined the patient. I reviewed the documentation, medical decision making, and treatment plan as noted by the mid-level provider above. I agree with the findings and plan of care. jayden Parham MD, AISHWARYA MD Jun 20, 2024 15:51
--- NOTE | 2024-06-20 17:35 | NUR ---
TRANSFER FOLLOW UP TO [facility] [phone] SPOKE WITH VIPUL INTAKE NURSE STATES SHE WILL CALL BACK. JESSY CAMPBELL
[2024-06-20 20:56] LABS: APPEARANCE,URINE CLOUDY (CLEAR); BILIRUBIN,URINE NEGATIVE (NEGATIVE); COLOR,URINE LIGHT-YELLOW (YELLOW); GLUCOSE, URINE (UA) NEGATIVE (NEGATIVE); KETONES,URINE 10 mg/dL (NEGATIVE); LEUKOCYTE ESTERASE ,URINE NEGATIVE Leu/uL (NEGATIVE); NITRATE,URINE NEGATIVE (NEGATIVE); OCCULT BLOOD,URINE NEGATIVE (NEGATIVE); PROTEIN,URINE 10 mg/dL (NEGATIVE); UROBILINOGEN,URINE 0.2 mg/dL (0.2-1.0)
[2024-06-20 20:58] LABS: ADD UA MICROSCOPIC YES
[2024-06-20 21:00] LABS: BACTERIA,URINE RARE /HPF (None Seen); SQUAMOUS EPITHELIAL CELL,UR RARE /HPF (0-2); UNCLASSIFIED CRYSTAL 12 /HPF (None Seen); URIC ACID CRYSTALS,URINE FEW /LPF (None Seen); YEAST,URINE BUDDING RARE /HPF (None Seen)
[2024-06-20 21:04] LABS: AMPHET/METH SCREEN,URINE NEGATIVE (NEGATIVE); BARBITURATE SCREEN, URINE NEGATIVE (NEGATIVE); BENZODIAZEPINES SCREEN,URINE NEGATIVE (NEGATIVE); CANNABINOID SCREEN,URINE POSITIVE (NEGATIVE); COCAINE SCREEN,URINE NEGATIVE (NEGATIVE); OPIATE SCREEN,URINE POSITIVE (NEGATIVE); PHENCYCLIDINE SCREEN,URINE NEGATIVE (NEGATIVE)
--- NOTE | 2024-06-20 23:43 | NUR ---
FOLLOWED UP WITH [facility] AND WAS ADVISED THAT THEIR ADMINISTRATION HAD DENIED THE TRANSFER OF [id number].
--- NOTE | 2024-06-21 00:05 | NUR ---
SPOKE WITH LUANNE AT [facility] TRANSFER [facility]. TRANSFER REQUEST INITIATED.
--- NOTE | 2024-06-21 01:03 | NUR ---
RECEIVED CALL FROM LUANNE AT [facility] TRANSFER [facility] AND WAS ADVISED THAT [facility] ADMINISTRATION DENIED THE TRANSFER.
[2024-06-21] MEDS: VANCOMYCIN 1.25 GM/250 ML BAG 250 ML IV SCH (04:41)
--- NOTE | 2024-06-21 10:30 | NUR ---
Spoke to SADE Fierro over the phone . Order in place for a CT Chest without contrast. States no need for ICU admission, plan to downgrade to medsur with telemetry and to apply NRM at 100%. Made charge nurse aware of plan. 1100: SADE Fierro at bedside
--- NOTE | 2024-06-21 11:38 | HMCIMG ---
CT NONCONTRAST CHEST Comparison Study: none History: pneumomediastinum ? Technique: Helical CT of the chest without IV contrast at 5 mm collimation. Coronal and sagittal reformations also done. CT Dose Index (CTDI): 2.38 mGy Dose Length Product (DLP): 94.8 total mGy-cm Findings: The airway is intact. The trachea and major bronchi are unremarkable. The chest exam shows no pulmonary nodules or masses. No significant pulmonary parenchymal abnormalities are noted. No pulmonary infiltrates or mass lesions are seen. No pleural effusions are identified. There is no pneumothorax. However, there is mild to moderate pneumomediastinum. This is of uncertain etiology. This extends to the base of the neck bilaterally. There is no evidence of pneumomediastinum. The nonenhanced exam of the liliya and mediastinum is unremarkable. No evidence of hilar enlargement is seen. The aorta shows no aneurysmal dilatation or significant atheromatous calcification. No significant brachiocephalic vascular abnormalities are seen. The heart is unremarkable. It is not enlarged. No significant coronary arterial calcifications are seen. There is no pericardial effusion. The rib cage appears unremarkable. The soft tissues of the chest wall are unremarkable. The dorsal spine shows no significant abnormalities. IMPRESSION: Pneumomediastinum of uncertain etiology. No pneumothorax. Clear lungs. This study was performed using dose reduction techniques to include automated exposure control and/or adjustment of the mA and/or kV according to patient size.
--- NOTE | 2024-06-21 12:38 | NUR ---
refuses NRM for long periods of time. explain to patient the importance of oxygen therapy. States oxygen mask makes him anxious. voices understanding, needing reinforcement
--- NOTE | 2024-06-21 13:08 | NUR ---
SBAR given to [facility] nurse. will be transferred to room 301. continue on NRM at 100%.Sats maintaining >95%. denies SOB, denies chest pain. 1310: spoke to Cee David (mother) tel .no. [phone] in regards to new room assigned. questions were answered. voices understanding.
[2024-06-21 13:15] VITALS: BP 156/81; PULSE 52; RESP 18; TEMP 97.6
[2024-06-21 13:20] VITALS: O2SAT 100
--- NOTE | 2024-06-21 14:51 | PN ---
[facility] PROGRESS NOTE Date of Service: Jun 21, 2024 Time of Service: 14:30 SUBJECTIVE: 23-year-old male presents to ED with complains of progressively worsening right upper quadrant pain associated with intractable nausea and vomiting for the past two days. The patient describes the pain as sharp, constant and radiating to the back with an intensity of 8 out of 10. Patient also reports that the pain is exacerbated by eating and drinking. The patient reports multiple episodes of non-bloody, non-bilious vomiting which have been relieved with Zofran on admission. Patient denies chills, fever, chest pain or shortness of breath. Patient also denies recent trauma, significant changes in bowel habits. Patient reports no esophageal or gastric conditions. He does reports history of THC use. . CT of the abdomen and pelvis showed critical pneumomediastinum and retroperitoneal emphysema. CTS, was consulted. Patient will be transferred to higher level of care for possible emergency surgical intervention. Chest x-ray noted for cardiomegaly Dr. Mariah Levy and he recommended patient be transferred to [place] or [place]. [facility] spoke to patient and spoke to the nurse in charge nurse and salvage clerk, It for to start transfer. 06/20-Patient was seen at sleeping, with his mother at the bedside. Vitals afebrile pulse 63, RR 16, BP 151/85, 99 saturation on room air. WBC 7.5, HB 15.5, sodium 139, potassium 4.1, BUN25 , creatinine 1.3 . Critical care consult noted. Patient is currently on vancomycin and Zosyn. 06/21-patient was seen at the bedside stable and orientedx3. Vitals 96.6, pulse 52, RR 18 , BP 152/82, 100% saturation on non-rebreather mask, flow rate 15 liters/minute. Critical care consult noted, ordered for chest CT without contrast-Pneumomediastinum of uncertain etiology. No pneumothorax. Clear lungs. Critical care says there is no need of ICU admission the patient is stable and can be downgraded to med [place] with telemetry. Continue patient on vanco and Zosyn. We will continue to monitor. Patient could not be transferred to the higher center of care, as they did not accept. REVIEW OF SYSTEMS CONSTITUTIONAL: Denies fevers, chills, or night sweats. No unintentional weight loss reported. NEUROLOGICAL: Denies headache, amaurosis fugax, motor weakness, sensory deficit, vertigo/spinning sensation, gait abnormalities, or tremors. ENT: No hearing loss, otalgia, otorrhea, rhinitis, rhinorrhea, hoarseness, or sore throat. CARDIOVASCULAR: Denies any exertional angina, dyspnea on exertion, orthopnea, paroxysmal nocturnal dyspnea, palpitations, life-threatening arrhythmias, claudication. PULMONARY: Denies any shortness of breath, cough, phlegm/sputum, hemoptysis, pleuritic chest pain. SLEEP: Denies morning headaches, daytime somnolence or napping. Denies difficulty falling asleep, staying asleep, waking from sleep. Denies knowledge of snoring. GASTROINTESTINAL: Denies any type of dysphagia to either liquids or solids. Positive for nausea, vomiting, pyrosis, early satiety, abdominal pain, diarrhea, constipation, or changes in stool consistency or caliber. Denies coffee-ground emesis, hematemesis, hematochezia, or melanotic stools. GENITOURINARY: Denies frequency, urgency, nocturia, hematuria or incontinence (Storage/Irritative symptoms.) Low urinary stream, straining to void, urinary intermittency or hesitancy, splitting of the voiding stream, terminal dribbling. ENDOCRINOLOGIC: Denies polyuria, polydipsia, polyphagia or heat/cold intolerances. HEMATOLOGIC: Denies thrombophilia/previous clots, or coagulopathy/bleeding disorders. ONCOLOGIC: Denies personal history of malignancy. DERMATOLOGIC: Denies rashes or pruritus. PSYCHIATRIC: Denies any suicidal or homicidal ideation. Denies hallucinations. PHYSICAL EXAM GENERAL APPEARANCE: The patient is awake, alert, and oriented, in no acute cardiopulmonary distress. NEUROLOGICAL: Cranial nerves II-XII grossly intact. Motor is 5/5 in bilateral upper and lower extremities proximal to distal. No sensory deficits. HEENT: Face is symmetric. Pupils are equal and reactive. Extraocular movements are intact. NECK: Supple. No JVD. No thyromegaly. No submental, submandibular, pre- /postauricular, occipital or supraclavicular lymphadenopathy. CHEST: Normal chest expansion. No Telemetry. LUNGS: Absence of any rales, rhonchi or any wheezing. CARDIOVASCULAR: Regular. S1 and S2 normal. No appreciable rubs, murmurs or gallops. ABDOMEN: Soft, nontender, and nondistended. There is no rebound, voluntary guarding, or rigidity. : Deferred. No Iglesias. EXTREMITIES: Non-edematous and not cyanotic. No clubbing. Good capillary refill. SKIN: No skin breakdown. Vital Signs (last 8hr) Date Time Temp Pulse Resp B/P (MAP) Pulse Ox O2 Delivery O2 Flow Rate FiO2 06/21/24 13:20 100 Non-Rebreather+ 15 100 06/21/24 13:15 97.5 52 18 156/81 100 Nasal Cannula 15.0 06/21/24 11:29 96.4 47 18 156/81 Non-Rebreather+ 15 100 06/21/24 09:11 96.6 50 18 119/57 98 Room Air* 0 21 06/21/24 07:55 96.6 50 18 119/57 96 Room Air* 0 21 LABS: Laboratory: Test 06/20/24 05:11 06/19/24 20:30 06/19/24 18:24 Range/Units White Blood Count 7.5 4.8-10.8 K/uL Red Blood Count 5.23 4.50-6.20 MIL/uL Hemoglobin 15.5 14.0-18.0 g/dL Hematocrit 45.9 42-54 % Mean Corpuscular Volume 87.8 79-99 fL Mean Corpuscular Hemoglobin 29.6 27.0-33.0 pg Mean Corpuscular Hemoglobin Concent 33.8 32.0-36.0 g/dL Red Cell Distribution Width 13.2 11.0-15.5 % Platelet Count 297 130-400 K/uL Mean Platelet Volume 10.2 7.5-10.5 fL Immature Granulocyte % (Auto) 0.4 0-1 % Neutrophils (%) (Auto) 77.0 40.0-77.0 % Lymphocytes (%) (Auto) 8.1 L 21.0-51.0 % Monocytes (%) (Auto) 14.4 H 3.0-13.0 % Eosinophils (%) (Auto) 0.0 0.0-8.0 % Basophils (%) (Auto) 0.1 0.0-5.0 % Neutrophils # (Auto) 5.8 1.8-7.7 K/uL Lymphocytes # (Auto) 0.6 L 1.0-4.8 K/uL Monocytes # (Auto) 1.1 H 0.1-1.0 K/uL Eosinophils # (Auto) 0.00 0.00-0.70 K/uL Basophils # (Auto) 0.01 0.00-0.20 K/uL Absolute Immature Granulocyte (auto 0.03 0-1 K/uL Nucleated Red Blood Cells 0.0 0.0-0.19 % Sodium Level 139 136-145 mmol/L Potassium Level 4.1 3.5-5.1 mmol/L Chloride Level 98 L 101-111 mmol/L Carbon Dioxide Level 31 21-32 mmol/L Blood Urea Nitrogen 25 H 7-18 mg/dL Creatinine 1.3 0.5-1.3 mg/dL Glomerular Filtration Rate Calc 79 >90 mL/min Random Glucose 118 H 70-105 mg/dL Hemoglobin A1c 5.6 4.0-6.0 % Estimated Average Glucose (eAG) 114 70-126 mg/dL Total Calcium 9.5 8.5-10.1 mg/dL Total Bilirubin 0.5 0.2-1.0 mg/dL Aspartate Amino Transf (AST/SGOT) 22 10-37 U/L Alanine Aminotransferase (ALT/SGPT) 32 12-78 U/L Alkaline Phosphatase 87 50-136 U/L Total Protein 8.1 # 6.0-8.3 g/dL Albumin 4.2 3.5-5.0 g/dL Procalcitonin < 0.05 L 0.05-0.5 ng/mL Urine Color LIGHT-YELLOW YELLOW Urine Appearance CLOUDY H CLEAR Urine pH 6.0 5.0-8.0 Urine Specific [place] 1.029 1.001-1.031 Urine Protein 10 H NEGATIVE mg/dL Urine Glucose (UA) NEGATIVE NEGATIVE mg/dL Urine Ketones 10 H NEGATIVE mg/dL Urine Occult Blood NEGATIVE NEGATIVE Urine Nitrate NEGATIVE NEGATIVE Urine Bilirubin NEGATIVE NEGATIVE mg/dL Urine Urobilinogen 0.2 0.2-1.0 mg/dL Urine Leukocyte Esterase NEGATIVE NEGATIVE [place]/uL Urine RBC 2-5 H 0-1 /HPF Urine WBC 2-5 H 0-1 /HPF Urine Squamous Epithelial Cells RARE 0-2 /HPF Urine Uric Acid Crystals FEW None Seen /LPF Urine Other Crystals (Auto) 12 None Seen /HPF Urine Bacteria RARE None Seen /HPF Urine Yeast RARE None Seen /HPF Urine Opiates Screen POSITIVE H NEGATIVE Urine Barbiturates Screen NEGATIVE NEGATIVE Urine Phencyclidine Screen NEGATIVE NEGATIVE Urine Amphetamines Screen NEGATIVE NEGATIVE Urine Benzodiazepines Screen NEGATIVE NEGATIVE Urine Cocaine Screen NEGATIVE NEGATIVE Urine Marijuana (THC) Screen POSITIVE H NEGATIVE White Cell Morphology Comment See comments Magnesium Level 2.20 1.80-2.40 mg/dL Direct Bilirubin 0.1 0.0-0.3 mg/dL Lipase 13 L 16-77 U/L Current Medications Medications (Trade) Dose Ordered Sig/Bee Route PRN Reason Start Time Stop Time Status Last Admin Dose Admin Acetaminophen (TYLenol 325MG TAB) 650 mg Q4H PRN PO MILD PAIN (1-3) 06/20/24 02:00 07/20/24 01:59 Acetaminophen (TYLenol 325MG TAB) 650 mg Q6H PRN PO TEMPERATURE GREATER THAN 101.5 06/20/24 02:00 07/20/24 01:59 Acetaminophen/ Codeine Phosphate (TYLenol-coDEINE TAB) 1 tab Q6H PRN PO MODERATE PAIN (4-6) 06/20/24 02:00 07/20/24 01:59 06/21/24 08:33 1 TAB Acetaminophen/ Codeine Phosphate (TYLenol-coDEINE TAB) 2 tab Q6H PRN PO SEVERE PAIN (7-10) 06/20/24 02:00 07/20/24 01:59 Ceftriaxone Sodium (ROCEphine 1G INJ) 1 gm Q24H IV 06/20/24 02:00 06/20/24 03:35 DC 06/20/24 02:23 1 GM Famotidine (Pepcid 20mg Vial) 20 mg Q24H IV 06/20/24 09:00 07/20/24 08:59 06/21/24 08:25 20 MG Hydromorphone HCl (DiLAUDid 1MG INJ) 0.5 mg Q4H PRN IV SEVERE PAIN (7-10) IF NPO 06/20/24 02:00 06/25/24 01:59 06/21/24 01:43 0.5 MG Ondansetron HCl (zoFRAN 4MG INJ) 4 mg Q6H PRN IV NAUSEA/VOMITING 06/20/24 02:00 07/20/24 01:59 06/21/24 08:25 4 MG Piperacillin Sod/ Tazobactam Sod (Zosyn 3.375gm+NS 50ml) 3.375 gm Q8H IVPB 06/20/24 03:30 06/30/24 03:29 06/21/24 12:52 3.375 GM Sodium Chloride 1,000 ml @ 100 mls/hr Q10H IV 06/20/24 02:00 07/20/24 01:59 06/21/24 08:35 100 MLS/HR Sodium Chloride (NS 50ml) 50 ml AD IV 06/20/24 03:00 06/20/24 03:08 DC Vancomycin HCl 250 ml @ 125 mls/hr Q24H IV 06/21/24 04:30 07/01/24 04:29 06/21/24 04:41 125 MLS/HR Vancomycin HCl (Vancomycin Protocol) 1 each AD IV 06/20/24 04:00 07/04/24 03:59 DIAGNOSTICS / RADIOLOGY: [ ] ASSESSMENT: Pneumomediastinum and retroperitoneal emphysema POA Intractable right upper quadrant pain POA Intractable nausea and vomiting POA Acute kidney injury POA Electrolyte derangement POA THC dependency ] PLAN: Patient shifted to [facility] Critical care consulted noted Continue Vancomycin and Zosyn PRN medication for nausea, vomiting, pain, hypokalemia, hypomagnesemia, hypoglycemia, hyperglycemia as needed Consulted cardiothoracic surgeon for further recommendations for possible urgent surgical intervention. We will monitor in the a.m. labs cbc,cmp, PT and APTT, D-dimers. On DVT and GI prophylaxis Patient will be monitoring closely, until further recommendations Current Medications Medications (Trade) Dose Ordered Sig/Bee Route PRN Reason Start Time Stop Time Status Last Admin Acetaminophen (TYLenol 325MG TAB) 650 mg Q6H PRN PO TEMPERATURE GREATER THAN 101.5 06/20/24 02:00 07/20/24 01:59 Acetaminophen (TYLenol 325MG TAB) 650 mg Q4H PRN PO MILD PAIN (1-3) 06/20/24 02:00 07/20/24 01:59 Ondansetron HCl (zoFRAN 4MG INJ) 4 mg Q6H PRN IV NAUSEA/VOMITING 06/20/24 02:00 07/20/24 01:59 Sodium Chloride 1,000 ml @ 100 mls/hr Q10H IV 06/20/24 02:00 07/20/24 01:59 06/20/24 02:23 Hydromorphone HCl (DiLAUDid 1MG INJ) 0.5 mg Q4H PRN IV SEVERE PAIN (7-10) IF NPO 06/20/24 02:00 06/25/24 01:59 Famotidine (Pepcid 20mg Vial) 20 mg Q24H IV 06/20/24 09:00 07/20/24 08:59 Acetaminophen/ Codeine Phosphate (TYLenol-coDEINE TAB) 1 tab Q6H PRN PO MODERATE PAIN (4-6) 06/20/24 02:00 07/20/24 01:59 Acetaminophen/ Codeine Phosphate (TYLenol-coDEINE TAB) 2 tab Q6H PRN PO SEVERE PAIN (7-10) 06/20/24 02:00 07/20/24 01:59 Piperacillin Sod/ Tazobactam Sod (Zosyn 3.375gm+NS 50ml) 3.375 gm Q8H IVPB 06/20/24 03:30 06/30/24 03:29 06/20/24 03:22 Vancomycin HCl (Vancomycin Protocol) 1 each AD IV 06/20/24 04:00 07/04/24 03:59 UNV ATTESTATION BY PHYSICIAN I have seen and examined the patient. I reviewed the documentation, medical decision making, and treatment plan as noted by the mid-level provider above. I agree with the findings and plan of care. jayden Parham MD, AISHWARYA MD Jun 21, 2024 14:51
[2024-06-21] MEDS ORDERED: DEXTROSE 50%-WATER 50 ML DISP.SYRIN IV PRN (15:00)
[2024-06-21] MEDS ORDERED: PoTASSium chloRIDE 20MEQ ER 20 MEQ ERTAB PO PRN (15:00)
[2024-06-21] MEDS ORDERED: GLUCAGON 1MG KIT 1 MG ML IM PRN (15:00)
[2024-06-21] MEDS ORDERED: MAGNESIUM 2GM PREMIX 50ML 50 ML IV PRN (15:00)
[2024-06-21] MEDS ORDERED: PoTASSium chl 10% ELIXIR 20MEQ 20 MEQ/15 ML UDCUP PO PRN (15:00)
[2024-06-21 15:20] VITALS: BP 139/85; PULSE 44; RESP 18; TEMP 97.1
--- NOTE | 2024-06-21 15:58 | CONS ---
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 He reported multiple episodes of nonbloody vomiting and was given Zofran in the emergency department on arrival. In the emergency department initial vital signs has a temperature 98.1 heart rate of 160 blood pressure 146/101 saturating 90% on room air. At workup laboratory showed a WBCs 9.2 and neutrophils 90.3 today the corrected 77. Chemistry had an ROBBIE with a creatinine of 2.3 and GFR of 40 today is 1.3 with a GFR of 79 and a BUN of 25. Total calcium was 11.2 and corrected to 9.5 today total protein 10.3 corrected to 8.1 today albumin 5.1 corrected to 4.2 today lipase 13 and procalcitonin of less than 0.05 hemoglobin A1c was 5.6. Urine showed to be cloudy protein of 10 ketones of 10 RBCs. On toxicology positive for opiates and marijuana. Abdominal CT showed mild pneumomediastinum. Otherwise normal CT abdomen pelvis. Carbon report this information was sent by on-call radiologist to [facility] nursing physician seven to exam. On chest x-ray cardiomegaly with clear lungs. The patient was admitted for pneumomediastinum and retroperitoneal emphysema POA. They have tried to transfer out for out for higher level of care what has been accepted. On assessment of patient is awake alert and oriented x3 ambulating in no apparent distress at room air saturating 99% and hemodynamically stable. He does report occasional abdominal pain 4/10 that worsens with eating. He is not on any vasopressors or mechanical ventilation therefore no need for ICU status at this time we may downgrade to med surge with telemetry for now. On CT of the chest pneumomediastinum of uncertain etiology. No pneumothorax. We will place patient on 100% non-rebreather mask for alleviation of pneumomediastinum now. conside GI eval for possible esophageal leak. PAST MEDICAL HX: Cannabinoid hyperemesis syndrome PAST SURGICAL HX: Denies SOCIAL HISTORY: Lives at home with grandmother THC use Denies alcohol use Coded Allergies: metoclopramide (Unverified Allergy, Unknown, 06/19/24) REVIEW OF SYSTEMS: Const: [no fever, fatigue, or weight changes] Eyes:[ no recent vision problems] ENT: [No congestion, ear pain, or sore throat] C/V: [no chest pain, palpitations or edema] Resp: [No cough, congestion, wheezing , or Shortness of breath] GI: [Yes to upper quadrant abdominal pain, nausea and vomiting. As per patient it has resolved. : [No incontinence of or dyuria] M/S: [No joint or pain swelling] Skin: [No rash] Neuro: [no headache, focal numbness, or weakness, dizziness or seizures] Psych: [no depression or anxiety] Heme: [no abnormal bruising or bleeding] Lymph: [no swollen glands] PHYSICAL EXAM: GENERAL: alert, weak, awake oriented x 3 HEENT: EOMI, Sclera non icteric, moist mucosa NECK: Supple, no JVD, trachea midline LUNGS: Clear breath sounds bilaterally. No wheezes HEART: Regular rate and rhythm. Normal S1 and S2, without murmurs ABD: Abdomen soft, nontender. 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 Vital Signs (last 8hr) Date Time Temp Pulse Resp B/P (MAP) Pulse Ox O2 Delivery O2 Flow Rate FiO2 06/21/24 15:20 97.2 44 18 139/85 100 Nasal Cannula 15.0 06/21/24 13:20 100 Non-Rebreather+ 15 100 06/21/24 13:15 97.5 52 18 156/81 100 Nasal Cannula 15.0 06/21/24 11:29 96.4 47 18 156/81 Non-Rebreather+ 15 100 06/21/24 09:11 96.6 50 18 119/57 98 Room Air* 0 21 06/21/24 07:55 96.6 50 18 119/57 96 Room Air* 0 21 LABS: Hematology Labs: Test 06/20/24 05:11 06/19/24 18:24 Range/Units White Blood Count 7.5 4.8-10.8 K/uL Red Blood Count 5.23 4.50-6.20 MIL/uL Hemoglobin 15.5 14.0-18.0 g/dL Hematocrit 45.9 42-54 % Mean Corpuscular Volume 87.8 79-99 fL Mean Corpuscular Hemoglobin 29.6 27.0-33.0 pg Mean Corpuscular Hemoglobin Concent 33.8 32.0-36.0 g/dL Red Cell Distribution Width 13.2 11.0-15.5 % Platelet Count 297 130-400 K/uL Mean Platelet Volume 10.2 7.5-10.5 fL Immature Granulocyte % (Auto) 0.4 0-1 % Neutrophils (%) (Auto) 77.0 40.0-77.0 % Lymphocytes (%) (Auto) 8.1 L 21.0-51.0 % Monocytes (%) (Auto) 14.4 H 3.0-13.0 % Eosinophils (%) (Auto) 0.0 0.0-8.0 % Basophils (%) (Auto) 0.1 0.0-5.0 % Neutrophils # (Auto) 5.8 1.8-7.7 K/uL Lymphocytes # (Auto) 0.6 L 1.0-4.8 K/uL Monocytes # (Auto) 1.1 H 0.1-1.0 K/uL Eosinophils # (Auto) 0.00 0.00-0.70 K/uL Basophils # (Auto) 0.01 0.00-0.20 K/uL Absolute Immature Granulocyte (auto 0.03 0-1 K/uL Nucleated Red Blood Cells 0.0 0.0-0.19 % White Cell Morphology Comment See comments Chemistry Labs: Test 06/20/24 05:11 06/19/24 18:24 Range/Units Sodium Level 139 136-145 mmol/L Potassium Level 4.1 3.5-5.1 mmol/L Chloride Level 98 L 101-111 mmol/L Carbon Dioxide Level 31 21-32 mmol/L Blood Urea Nitrogen 25 H 7-18 mg/dL Creatinine 1.3 0.5-1.3 mg/dL Glomerular Filtration Rate Calc 79 >90 mL/min Random Glucose 118 H 70-105 mg/dL Hemoglobin A1c 5.6 4.0-6.0 % Estimated Average Glucose (eAG) 114 70-126 mg/dL Total Calcium 9.5 8.5-10.1 mg/dL Total Bilirubin 0.5 0.2-1.0 mg/dL Aspartate Amino Transf (AST/SGOT) 22 10-37 U/L Alanine Aminotransferase (ALT/SGPT) 32 12-78 U/L Alkaline Phosphatase 87 50-136 U/L Total Protein 8.1 # 6.0-8.3 g/dL Albumin 4.2 3.5-5.0 g/dL Procalcitonin < 0.05 L 0.05-0.5 ng/mL Magnesium Level 2.20 1.80-2.40 mg/dL Direct Bilirubin 0.1 0.0-0.3 mg/dL Lipase 13 L 16-77 U/L DIAGNOSTICS / RADIOLOGY RESULTS: [ ] IMAGING REPORT Signed PATIENT: TOM CONRAD MR#: [id number] : 2000 SEX: M AGE: 23 LOCATION: [facility] ORDER 1018 STATUS: ADM IN REPORT#: [id number] SERVICE 1017 REASON: pneumomediastinum ? ORDERING PHYSICIAN: SCOTT MORGAN PROCEDURE: CHEST WO - CT CHEST W/O CONTRAST CT NONCONTRAST CHEST Comparison Study: none History: pneumomediastinum ? Technique: Helical CT of the chest without IV contrast at 5 mm collimation. Coronal and sagittal reformations also done. CT Dose Index (CTDI): 2.38 mGy Dose Length Product (DLP): 94.8 total mGy-cm Findings: The airway is intact. The trachea and major bronchi are unremarkable. The chest exam shows no pulmonary nodules or masses. No significant pulmonary parenchymal abnormalities are noted. No pulmonary infiltrates or mass lesions are seen. No pleural effusions are identified. There is no pneumothorax. However, there is mild to moderate pneumomediastinum. This is of uncertain etiology. This extends to the base of the neck bilaterally. There is no evidence of pneumomediastinum. The nonenhanced exam of the liliya and mediastinum is unremarkable. No evidence of hilar enlargement is seen. The aorta shows no aneurysmal dilatation or significant atheromatous calcification. No significant brachiocephalic vascular abnormalities are seen. The heart is unremarkable. It is not enlarged. No significant coronary arterial calcifications are seen. There is no pericardial effusion. The rib cage appears unremarkable. The soft tissues of the chest wall are unremarkable. The dorsal spine shows no significant abnormalities. IMPRESSION: Pneumomediastinum of uncertain etiology. No pneumothorax. Clear lungs. This study was performed using dose reduction techniques to include automated exposure control and/or adjustment of the mA and/or kV according to patient size. DICTATED BY: JAIME MALAVE MD DATE: 06/21/241133 ELECTRONICALLY SIGNED BY: JAIME MALAVE MD DATE: 06/21/241137 PLAN 100% NRB mask GI to eval for possible esophageal tear deescalate Vanco and zosyn if no esophageal tear per GI IGG and IGA NEURO: Minimize central acting medications as possible. Fall Precautions. Well lighted room through the day and minimize interruptions through the night to prevent acute delirium. PULMONARY: Supplemental 02 as needed Titrate Fio2 to keep Spo2 > or = 90% DuoNebs and CPT as needed IS hourly while awake for pulmonary hygiene Out of bed to chair as tolerated CARDIOVASCULAR: Follow hemodynamics. Titrate vasopressor to keep MAP >65 or systolic blood pressure >95mmHg Drips: None LINES: PIV GI & NUTRITION: Continue nutritional support Aspirations precautions Prokinetic agents and laxatives as needed Regular diet KIDNEYS & ELECTROLYTES: Strict monitoring of intake and output Daily weights Avoid nephrotoxic agents Monitor electrolytes and replace as needed Goal urine output of 30mL/hr or 0.5mL/kg/hr ENDOCRINE: Maintain blood glucose between 100-180 at all times. Insulin sliding scale for blood glucose management INFECTIOUS DISEASE: Trend temperature. Prieto-culture if febrile. Micro: [ ] Antibiotics: [ ] Doxycycline 100 mg p.o. b.i.d. times 10 days For suspected 100 then hidradenitis suppurativa HEMATOLOGY & COAGULATION: Monitor H&H. Keep Hgb > 7 Transfuse 1 unit of PRBC for Hgb < 7 Transfuse 1 pack of platelets of platelets < 20, 000 Watch for any signs and symptoms of bleeding SKIN: Pressure ulcer prevention per facility protocol Rehab: PT/OT Prophylaxis: GI: Protonix DVT: Ambulates Code Status: Full Resuscitation Disposition: Med surge with telemetry. Other: Total patient care time exceeds 35 minutes excluding all procedures. Case was discussed and seen with my supervising physician. The above plan was formulated and agreed upon. SCOTT MORGAN [facility] Jun 21, 2024 15:58
[2024-06-21 16:09] LABS: BASOPHILS # (AUTO) 0.01 K/uL (0.00-0.20); BASOPHILS % (AUTO) 0.2 % (0.0-5.0); EOSINOPHILS # (AUTO) 0.01 K/uL (0.00-0.70); EOSINOPHILS % (AUTO) 0.2 % (0.0-8.0); HEMATOCRIT 40.6 % (42-54); IMMATURE GRANULOCYTE ABSOLUTE 0.01 K/uL (0-1); LYMPHOCYTES % (AUTO) 16.4 % (21.0-51.0); MEAN CORPUSCULAR HEMOGLOBIN 29.5 pg (27.0-33.0); MEAN CORPUSCULAR HGB CONC 33.3 g/dL (32.0-36.0); MEAN CORPUSCULAR VOLUME 88.6 fL (79-99); MONOCYTES # (AUTO) 0.9 K/uL (0.1-1.0); MONOCYTES % (AUTO) 14.1 % (3.0-13.0); NEUTROPHILS # (AUTO) 4.2 K/uL (1.8-7.7); NEUTROPHILS % (AUTO) 68.9 % (40.0-77.0); PLATELET COUNT (AUTO) 237 K/uL (130-400); RED BLOOD CELL COUNT(AUTO) 4.58 MIL/uL (4.50-6.20); RED CELL DISTRIBUTION WIDTH 13.2 % (11.0-15.5); WHITE BLOOD COUNT (AUTO) 6.1 K/uL (4.8-10.8)
[2024-06-21 16:14] LABS: ALBUMIN 3.3 g/dL (3.5-5.0); BILIRUBIN,TOTAL 0.5 mg/dL (0.2-1.0); CREATININE 0.8 mg/dL (0.5-1.3); POTASSIUM 3.8 mmol/L (3.5-5.1); TOTAL PROTEIN, SERUM 6.8 g/dL (6.0-8.3)
[2024-06-21] MEDS: INSULIN humuLIN R 100 UNIT/ML 3ML SQ SCH (16:30)
[2024-06-21] MEDS ORDERED: VANCOMYCIN PROTOCOL PER PHARMACY IV SCH (17:00)
--- NOTE | 2024-06-21 17:00 | NUR ---
note attempt to notify dr arreguin via answering service, no response at this time
[2024-06-21] MEDS: ZOSYN 3.375GM +NS 50ML IV SCH (17:13)
[2024-06-21] MEDS: LACTATED RINGERS 1000ML 1,000 ML IV SCH (17:13)
[2024-06-21] MEDS ORDERED: VANCOMYCIN 2GM/500 ML BAG 500 ML IV ONE (18:00)
[2024-06-21 20:00] VITALS: BP 149/75; PULSE 59; RESP 18; TEMP 98.4; O2SAT 100
[2024-06-21] MEDS ORDERED: DOXYCYCLINE HYCLATE 100 MG TABLET PO SCH (21:00)
[2024-06-21 23:44] VITALS: BP 136/78; PULSE 44; RESP 18; TEMP 98.4
[2024-06-22] VITALS (7 sets, daily range): BP systolic 132–165; BP diastolic 57–89; PULSE 46–65; RESP 18–20; TEMP 97.4–98.6; O2SAT 100
[2024-06-22] MEDS: PROMETHAZINE HCL 25 MG/ML 1ML AMPULE IM STA (04:46)
[2024-06-22 05:24] LABS: BASOPHILS # (AUTO) 0.02 K/uL (0.00-0.20); BASOPHILS % (AUTO) 0.2 % (0.0-5.0); EOSINOPHILS # (AUTO) 0.01 K/uL (0.00-0.70); EOSINOPHILS % (AUTO) 0.1 % (0.0-8.0); HEMATOCRIT 43.7 % (42-54); IMMATURE GRANULOCYTE ABSOLUTE 0.02 K/uL (0-1); LYMPHOCYTES # (AUTO) 0.9 K/uL (1.0-4.8); LYMPHOCYTES % (AUTO) 9.6 % (21.0-51.0); MEAN CORPUSCULAR HEMOGLOBIN 29.6 pg (27.0-33.0); MEAN CORPUSCULAR HGB CONC 32.7 g/dL (32.0-36.0); MEAN CORPUSCULAR VOLUME 90.5 fL (79-99); MONOCYTES # (AUTO) 1.2 K/uL (0.1-1.0); MONOCYTES % (AUTO) 12.3 % (3.0-13.0); NEUTROPHILS # (AUTO) 7.3 K/uL (1.8-7.7); NEUTROPHILS % (AUTO) 77.6 % (40.0-77.0); PLATELET COUNT (AUTO) 259 K/uL (130-400); RED BLOOD CELL COUNT(AUTO) 4.83 MIL/uL (4.50-6.20); WHITE BLOOD COUNT (AUTO) 9.4 K/uL (4.8-10.8)
[2024-06-22] MEDS: VANCOMYCIN 1.25 GM/250 ML BAG 250 ML IV SCH (05:36)
[2024-06-22 05:38] LABS: INR 0.97 (0.85-1.15); PROTHROMBIN TIME 10.9 SEC (9.6-11.6)
[2024-06-22 05:39] LABS: PARTIAL THROMBOPLASTIN TIME 29.1 SEC (26.3-35.5)
[2024-06-22 06:16] LABS: ALBUMIN 3.6 g/dL (3.5-5.0); BILIRUBIN,TOTAL 0.6 mg/dL (0.2-1.0); CREATININE 0.7 mg/dL (0.5-1.3); POTASSIUM 3.6 mmol/L (3.5-5.1); TOTAL PROTEIN, SERUM 7.3 g/dL (6.0-8.3)
--- NOTE | 2024-06-22 09:17 | PN ---
[facility] PROGRESS NOTE Date Patient Seen: Jun 22, 2024 Time of Visit: 09:10 Supervising Physician: [Dr. 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 Patient continues on non-rebreather mask at 15 L with 100% oxygen. Patient was admitted with a pneumomediastinum, critical Care was consulted for the same. There was an attempt to transfer the patient for higher level of care but patient was not accepted. Cardiothoracic surgery was consulted for the same, pending evaluation and recommendation. GI was consulted as this may be more related to his hyperemesis syndrome with possible Delores-Choudhary tear of esophagus. Patient denies any pain at rest but states pain is triggered with movement or deep inspiration. Denies any cough with phlegm or hemoptysis. Denies hematemesis prior to arrival, no vomiting while admitted. Denies any melena or hematocheezia. No current respiratory distress, continues on NRB.] REVIEW OF SYSTEMS: Const: [no fever, fatigue, or weight changes] Eyes:[ no recent vision problems] ENT: [No congestion, ear pain, or sore throat] C/V: [no chest pain, palpitations or edema] Resp: [No cough, congestion, wheezing , or Shortness of breath] GI: [Yes to upper quadrant abdominal pain, nausea and vomiting. As per patient it has resolved. : [No incontinence of or dyuria] M/S: [No joint or pain swelling] Skin: [No rash] Neuro: [no headache, focal numbness, or weakness, dizziness or seizures] Psych: [no depression or anxiety] Heme: [no abnormal bruising or bleeding] Lymph: [no swollen glands] PHYSICAL EXAM: GENERAL: alert, weak, awake oriented x 3 HEENT: EOMI, Sclera non icteric, moist mucosa NECK: Supple, no JVD, trachea midline LUNGS: Clear breath sounds bilaterally. No wheezes HEART: Regular rate and rhythm. Normal S1 and S2, without murmurs ABD: Abdomen soft, nontender. 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 Vital Signs (last 8hr) Date Time Temp Pulse Resp B/P (MAP) Pulse Ox O2 Delivery O2 Flow Rate FiO2 06/22/24 03:48 98.6 65 18 100 Nonrebreathing Mask 15.0 LABS: Hematology Labs: Test 06/22/24 05:04 Range/Units White Blood Count 9.4 # 4.8-10.8 K/uL Red Blood Count 4.83 4.50-6.20 MIL/uL Hemoglobin 14.3 14.0-18.0 g/dL Hematocrit 43.7 42-54 % Mean Corpuscular Volume 90.5 79-99 fL Mean Corpuscular Hemoglobin 29.6 27.0-33.0 pg Mean Corpuscular Hemoglobin Concent 32.7 32.0-36.0 g/dL Red Cell Distribution Width 13.0 11.0-15.5 % Platelet Count 259 130-400 K/uL Mean Platelet Volume 10.4 7.5-10.5 fL Immature Granulocyte % (Auto) 0.2 0-1 % Neutrophils (%) (Auto) 77.6 H 40.0-77.0 % Lymphocytes (%) (Auto) 9.6 L 21.0-51.0 % Monocytes (%) (Auto) 12.3 3.0-13.0 % Eosinophils (%) (Auto) 0.1 0.0-8.0 % Basophils (%) (Auto) 0.2 0.0-5.0 % Neutrophils # (Auto) 7.3 1.8-7.7 K/uL Lymphocytes # (Auto) 0.9 L 1.0-4.8 K/uL Monocytes # (Auto) 1.2 H 0.1-1.0 K/uL Eosinophils # (Auto) 0.01 0.00-0.70 K/uL Basophils # (Auto) 0.02 0.00-0.20 K/uL Absolute Immature Granulocyte (auto 0.02 0-1 K/uL Nucleated Red Blood Cells 0.0 0.0-0.19 % Chemistry Labs: Test 06/22/24 06:30 06/22/24 05:04 Range/Units Whole Blood Glucose 85 70-110 MG/DL Sodium Level 139 136-145 mmol/L Potassium Level 3.6 3.5-5.1 mmol/L Chloride Level 101 101-111 mmol/L Carbon Dioxide Level 28 21-32 mmol/L Blood Urea Nitrogen 13 7-18 mg/dL Creatinine 0.7 0.5-1.3 mg/dL Glomerular Filtration Rate Calc 133 >90 mL/min Random Glucose 94 70-105 mg/dL Total Calcium 8.8 8.5-10.1 mg/dL Total Bilirubin 0.6 0.2-1.0 mg/dL Aspartate Amino Transf (AST/SGOT) 50 H 10-37 U/L Alanine Aminotransferase (ALT/SGPT) 43 # 12-78 U/L Alkaline Phosphatase 73 50-136 U/L Total Protein 7.3 6.0-8.3 g/dL Albumin 3.6 3.5-5.0 g/dL Coagulation Labs: Test 06/22/24 05:04 Range/Units Prothrombin Time 10.9 9.6-11.6 SEC Prothromb Time International Ratio 0.97 0.85-1.15 Activated Partial Thromboplast Time 29.1 26.3-35.5 SEC D-Dimer Quantitative (PE/DVT) 279 0-500 ng/mL DIAGNOSTICS / RADIOLOGY RESULTS: [CT NONCONTRAST CHEST Comparison Study: none History: pneumomediastinum ? Technique: Helical CT of the chest without IV contrast at 5 mm collimation. Coronal and sagittal reformations also done. CT Dose Index (CTDI): 2.38 mGy Dose Length Product (DLP): 94.8 total mGy-cm Findings: The airway is intact. The trachea and major bronchi are unremarkable. The chest exam shows no pulmonary nodules or masses. No significant pulmonary parenchymal abnormalities are noted. No pulmonary infiltrates or mass lesions are seen. No pleural effusions are identified. There is no pneumothorax. However, there is mild to moderate pneumomediastinum. This is of uncertain etiology. This extends to the base of the neck bilaterally. There is no evidence of pneumomediastinum. The nonenhanced exam of the liliya and mediastinum is unremarkable. No evidence of hilar enlargement is seen. The aorta shows no aneurysmal dilatation or significant atheromatous calcification. No significant brachiocephalic vascular abnormalities are seen. The heart is unremarkable. It is not enlarged. No significant coronary arterial calcifications are seen. There is no pericardial effusion. The rib cage appears unremarkable. The soft tissues of the chest wall are unremarkable. The dorsal spine shows no significant abnormalities. IMPRESSION: Pneumomediastinum of uncertain etiology. No pneumothorax. Clear lungs. This study was performed using dose reduction techniques to include automated exposure control and/or adjustment of the mA and/or kV according to patient size.] PLAN NEURO: Minimize central acting medications as possible. Maintain fall precautions, adequate lighting during the day PULMONARY: Supplemental 02 as needed. Maintain aspiration precautions at all times CARDIOVASCULAR: Follow hemodynamics. Vital signs per facility protocol GI & NUTRITION: Continue with nutritional support. Continue stool softeners and laxatives as needed. KIDNEYS & ELECTROLYTES: Strict monitoring of intake, output and overall fluid balance. Avoid nephrotoxic medications to the extent possible. Medications to be dosed according to renal function. Monitor electrolytes and replace as needed ENDOCRINE: Maintain blood glucose between 100-180 at all times. Hypoglycemia protocol in place INFECTIOUS DISEASE: Trend temperature, WBC and procalcitonin level Follow cultures, deescalate antibiotics as soon as possible. Panculture if new onset fever ONCOLOGY/HEMATOLOGY/COAGULATION: Monitor for s/s of bleeding Monitor hemoglobin, coagulation studies as needed SKIN: Pressure ulcer prevention per facility protocol Specialty mattress ORTHO/REHAB: Continue PT/OT Prophylaxis: Continue GI and DVT prophylaxis Code Status: Full Resuscitation Disposition: TBD Other: Total patient care time exceeds 35 minutes excluding all procedures. BECKA COLLAZO Jun 22, 2024 09:17
--- NOTE | 2024-06-22 12:28 | PN ---
[facility] PROGRESS NOTE Date of Service: Jun 22, 2024 Time of Service: 12:27 SUBJECTIVE: 23-year-old male presents to ED with complains of progressively worsening right upper quadrant pain associated with intractable nausea and vomiting for the past two days. The patient describes the pain as sharp, constant and radiating to the back with an intensity of 8 out of 10. Patient also reports that the pain is exacerbated by eating and drinking. The patient reports multiple episodes of non-bloody, non-bilious vomiting which have been relieved with Zofran on admission. Patient denies chills, fever, chest pain or shortness of breath. Patient also denies recent trauma, significant changes in bowel habits. Patient reports no esophageal or gastric conditions. He does reports history of THC use. . CT of the abdomen and pelvis showed critical pneumomediastinum and retroperitoneal emphysema. CTS, was consulted. Patient will be transferred to higher level of care for possible emergency surgical intervention. Chest x-ray noted for cardiomegaly Dr. Mariah Levy and he recommended patient be transferred to [place] or [place]. [facility] spoke to patient and spoke to the nurse in charge nurse and sales secretary, It for to start transfer. 06/20-Patient was seen at sleeping, with his mother at the bedside. Vitals afebrile pulse 63, RR 16, BP 151/85, 99 saturation on room air. WBC 7.5, HB 15.5, sodium 139, potassium 4.1, BUN25 , creatinine 1.3 . Critical care consult noted. Patient is currently on vancomycin and Zosyn. 06/21-patient was seen at the bedside stable and orientedx3. Vitals 96.6, pulse 52, RR 18 , BP 152/82, 100% saturation on non-rebreather mask, flow rate 15 liters/minute. Critical care consult noted, ordered for chest CT without contrast-Pneumomediastinum of uncertain etiology. No pneumothorax. Clear lungs. Critical care says there is no need of ICU admission the patient is stable and can be downgraded to med surge with telemetry. Continue patient on vanco and Zosyn. We will continue to monitor. Patient could not be transferred to the higher center of care, as they did not accept. 06/22-patient was seen at the bedside, complaining of right-sided chest pressure and lower back pain, still not able to get anything down continues to vomit even with small amount of water. We did a stat chest x-ray,Prominent perihilar markings which may represent viral infection/reactive airway disease, less likely early pneumonia. Correlate clinically. No definite pneumomediastinum is identified.Cardiac silhouette is within normal limits. Mild degenerative changes of the spine.The visualized upper abdomen appears unremarkable. Informed critical care team. Suspecting esophageal tear, scheduled for a barium swallow study, unfortunately the test can not be done today as the technicians for it and not available. The test will be done likely tomorrow. We will continue to monitor the patient. Vitals stable on non-rebreather mask 15 liters/minute. GI consult noted REVIEW OF SYSTEMS CONSTITUTIONAL: Denies fevers, chills, or night sweats. No unintentional weight loss reported. NEUROLOGICAL: Denies headache, amaurosis fugax, motor weakness, sensory deficit, vertigo/spinning sensation, gait abnormalities, or tremors. ENT: No hearing loss, otalgia, otorrhea, rhinitis, rhinorrhea, hoarseness, or sore throat. CARDIOVASCULAR: Denies any exertional angina, dyspnea on exertion, orthopnea, paroxysmal nocturnal dyspnea, palpitations, life-threatening arrhythmias, claudication. PULMONARY: Denies any shortness of breath, cough, phlegm/sputum, hemoptysis, pleuritic chest pain. SLEEP: Denies morning headaches, daytime somnolence or napping. Denies difficulty falling asleep, staying asleep, waking from sleep. Denies knowledge of snoring. GASTROINTESTINAL: Denies any type of dysphagia to either liquids or solids. Positive for nausea, vomiting, pyrosis, early satiety, abdominal pain, diarrhea, constipation, or changes in stool consistency or caliber. Denies coffee-ground emesis, hematemesis, hematochezia, or melanotic stools. GENITOURINARY: Denies frequency, urgency, nocturia, hematuria or incontinence (Storage/Irritative symptoms.) Low urinary stream, straining to void, urinary intermittency or hesitancy, splitting of the voiding stream, terminal dribbling. ENDOCRINOLOGIC: Denies polyuria, polydipsia, polyphagia or heat/cold intolerances. HEMATOLOGIC: Denies thrombophilia/previous clots, or coagulopathy/bleeding disorders. ONCOLOGIC: Denies personal history of malignancy. DERMATOLOGIC: Denies rashes or pruritus. PSYCHIATRIC: Denies any suicidal or homicidal ideation. Denies hallucinations. PHYSICAL EXAM GENERAL APPEARANCE: The patient is awake, alert, and oriented, in no acute cardiopulmonary distress. NEUROLOGICAL: Cranial nerves II-XII grossly intact. Motor is 5/5 in bilateral upper and lower extremities proximal to distal. No sensory deficits. HEENT: Face is symmetric. Pupils are equal and reactive. Extraocular movements are intact. NECK: Supple. No JVD. No thyromegaly. No submental, submandibular, pre-/postauricular, occipital or supraclavicular lymphadenopathy. CHEST: Normal chest expansion. No Telemetry. LUNGS: Absence of any rales, rhonchi or any wheezing. CARDIOVASCULAR: Regular. S1 and S2 normal. No appreciable rubs, murmurs or gallops. ABDOMEN: Soft, nontender, and nondistended. There is no rebound, voluntary guarding, or rigidity. : Deferred. No Iglesias. EXTREMITIES: Non-edematous and not cyanotic. No clubbing. Good capillary refill. SKIN: No skin breakdown. Vital Signs (last 8hr) Date Time Temp Pulse Resp B/P (MAP) Pulse Ox O2 Delivery O2 Flow Rate FiO2 06/22/24 08:00 98.1 49 18 132/77 100 Nonrebreathing Mask 15.0 LABS: Laboratory: Test 06/22/24 11:49 06/22/24 05:04 Range/Units Whole Blood Glucose 80 70-110 MG/DL White Blood Count 9.4 # 4.8-10.8 K/uL Red Blood Count 4.83 4.50-6.20 MIL/uL Hemoglobin 14.3 14.0-18.0 g/dL Hematocrit 43.7 42-54 % Mean Corpuscular Volume 90.5 79-99 fL Mean Corpuscular Hemoglobin 29.6 27.0-33.0 pg Mean Corpuscular Hemoglobin Concent 32.7 32.0-36.0 g/dL Red Cell Distribution Width 13.0 11.0-15.5 % Platelet Count 259 130-400 K/uL Mean Platelet Volume 10.4 7.5-10.5 fL Immature Granulocyte % (Auto) 0.2 0-1 % Neutrophils (%) (Auto) 77.6 H 40.0-77.0 % Lymphocytes (%) (Auto) 9.6 L 21.0-51.0 % Monocytes (%) (Auto) 12.3 3.0-13.0 % Eosinophils (%) (Auto) 0.1 0.0-8.0 % Basophils (%) (Auto) 0.2 0.0-5.0 % Neutrophils # (Auto) 7.3 1.8-7.7 K/uL Lymphocytes # (Auto) 0.9 L 1.0-4.8 K/uL Monocytes # (Auto) 1.2 H 0.1-1.0 K/uL Eosinophils # (Auto) 0.01 0.00-0.70 K/uL Basophils # (Auto) 0.02 0.00-0.20 K/uL Absolute Immature Granulocyte (auto 0.02 0-1 K/uL Nucleated Red Blood Cells 0.0 0.0-0.19 % Prothrombin Time 10.9 9.6-11.6 SEC Prothromb Time International Ratio 0.97 0.85-1.15 Activated Partial Thromboplast Time 29.1 26.3-35.5 SEC D-Dimer Quantitative (PE/DVT) 279 0-500 ng/mL Sodium Level 139 136-145 mmol/L Potassium Level 3.6 3.5-5.1 mmol/L Chloride Level 101 101-111 mmol/L Carbon Dioxide Level 28 21-32 mmol/L Blood Urea Nitrogen 13 7-18 mg/dL Creatinine 0.7 0.5-1.3 mg/dL Glomerular Filtration Rate Calc 133 >90 mL/min Random Glucose 94 70-105 mg/dL Total Calcium 8.8 8.5-10.1 mg/dL Total Bilirubin 0.6 0.2-1.0 mg/dL Aspartate Amino Transf (AST/SGOT) 50 H 10-37 U/L Alanine Aminotransferase (ALT/SGPT) 43 # 12-78 U/L Alkaline Phosphatase 73 50-136 U/L Total Protein 7.3 6.0-8.3 g/dL Albumin 3.6 3.5-5.0 g/dL Current Medications Medications (Trade) Dose Ordered Sig/Bee Route PRN Reason Start Time Stop Time Status Last Admin Dose Admin Acetaminophen (TYLenol 325MG TAB) 650 mg Q4H PRN PO MILD PAIN (1-3) 06/20/24 02:00 07/20/24 01:59 Acetaminophen (TYLenol 325MG TAB) 650 mg Q6H PRN PO TEMPERATURE GREATER THAN 101.5 06/20/24 02:00 07/20/24 01:59 Acetaminophen/ Codeine Phosphate (TYLenol-coDEINE TAB) 1 tab Q6H PRN PO MODERATE PAIN (4-6) 06/20/24 02:00 07/20/24 01:59 06/21/24 08:33 1 TAB Acetaminophen/ Codeine Phosphate (TYLenol-coDEINE TAB) 2 tab Q6H PRN PO SEVERE PAIN (7-10) 06/20/24 02:00 07/20/24 01:59 Ceftriaxone Sodium (ROCEphine 1G INJ) 1 gm Q24H IV 06/20/24 02:00 06/20/24 03:35 DC 06/20/24 02:23 1 GM Dextrose (D50w) 50 ml AD PRN IV HYPOGLYCEMIA PROTOCOL 06/21/24 15:00 07/21/24 14:59 Doxycycline Hyclate (Doxycycline Hyclate) 100 mg BID PO 06/21/24 21:00 06/21/24 17:00 DC Famotidine (Pepcid 20mg Vial) 20 mg Q24H IV 06/20/24 09:00 07/20/24 08:59 06/22/24 08:45 20 MG Glucagon (Glucagon 1mg Kit) 1 mg AD PRN IM HYPOGLYCEMIA PROTOCOL 06/21/24 15:00 07/21/24 14:59 Hydromorphone HCl (DiLAUDid 1MG INJ) 0.5 mg Q4H PRN IV SEVERE PAIN (7-10) IF NPO 06/20/24 02:00 06/25/24 01:59 06/22/24 07:24 0.5 MG Insulin Human Regular (humuLIN R 100 UNIT/ML 3ML) INSULIN SLIDING SCAL... ACHS SQ 06/21/24 16:30 07/21/24 16:29 Lactated Ringer's 1,000 ml @ 75 mls/hr [id number] IV 06/21/24 17:00 07/21/24 16:59 06/22/24 06:22 75 MLS/HR Magnesium Sulfate 50 ml @ 0 mls/hr PROTOCOL PRN IV PROTOCOL 06/21/24 15:00 07/21/24 14:59 Ondansetron HCl (zoFRAN 4MG INJ) 4 mg Q6H PRN IV NAUSEA/VOMITING 06/20/24 02:00 07/20/24 01:59 06/22/24 08:45 4 MG Piperacillin Sod/ Tazobactam Sod (Zosyn 3.375gm+NS 50ml) 3.375 gm Q8H IV 06/21/24 17:00 07/01/24 16:59 06/22/24 08:45 3.375 GM Piperacillin Sod/ Tazobactam Sod (Zosyn 3.375gm+NS 50ml) 3.375 gm Q8H IVPB 06/20/24 03:30 06/21/24 15:53 DC 06/21/24 12:52 3.375 GM Potassium Chloride 100 ml @ 100 mls/hr AD PRN IV POTASSIUM PROTOCOL 06/21/24 15:00 07/21/24 14:59 Potassium Chloride (K-Dur/Klor-Con 20meq) 20 meq AD PRN PO POTASSIUM PROTOCOL 06/21/24 15:00 07/21/24 14:59 Potassium Chloride (KCl 10% Elixir 20meq/15ml) 20 meq AD PRN PO POTASSIUM PROTOCOL 06/21/24 15:00 07/21/24 14:59 Promethazine HCl (Phenergan) 25 mg ONCE STAT IM 06/22/24 04:40 06/22/24 04:43 DC 06/22/24 04:46 25 MG Sodium Chloride 1,000 ml @ 100 mls/hr Q10H IV 06/20/24 02:00 06/21/24 15:43 DC 06/21/24 08:35 100 MLS/HR Sodium Chloride (NS 50ml) 50 ml AD IV 06/20/24 03:00 06/20/24 03:08 DC Vancomycin HCl 250 ml @ 125 mls/hr Q24H IV 06/21/24 04:30 06/21/24 15:53 DC 06/21/24 04:41 125 MLS/HR Vancomycin HCl 250 ml @ 125 mls/hr Q8H IV 06/22/24 06:00 07/02/24 05:59 06/22/24 05:36 125 MLS/HR Vancomycin HCl (Vancomycin Protocol) 1 each AD IV 06/20/24 04:00 06/21/24 15:53 DC Vancomycin HCl (Vancomycin Protocol) 1 each AD IV 06/21/24 17:00 07/01/24 16:59 DIAGNOSTICS / RADIOLOGY: [ ] ASSESSMENT: Pneumomediastinum and retroperitoneal emphysema POA Intractable right upper quadrant pain POA Intractable nausea and vomiting POA Acute kidney injury POA Electrolyte derangement POA THC dependency ] PLAN: Patient shifted to [facility] Critical care consulted noted Continue Vancomycin and Zosyn PRN medication for nausea, vomiting, pain, hypokalemia, hypomagnesemia, hypoglycemia, hyperglycemia as needed Consulted cardiothoracic surgeon for further recommendations for possible urgent surgical intervention. We will monitor in the a.m. labs cbc,cmp, PT and APTT, D-dimers. On DVT and GI prophylaxis Patient will be monitoring closely, until further recommendations Current Medications Medications (Trade) Dose Ordered Sig/Bee Route PRN Reason Start Time Stop Time Status Last Admin Acetaminophen (TYLenol 325MG TAB) 650 mg Q6H PRN PO TEMPERATURE GREATER THAN 101.5 06/20/24 02:00 07/20/24 01:59 Acetaminophen (TYLenol 325MG TAB) 650 mg Q4H PRN PO MILD PAIN (1-3) 06/20/24 02:00 07/20/24 01:59 Ondansetron HCl (zoFRAN 4MG INJ) 4 mg Q6H PRN IV NAUSEA/VOMITING 06/20/24 02:00 07/20/24 01:59 Sodium Chloride 1,000 ml @ 100 mls/hr Q10H IV 06/20/24 02:00 07/20/24 01:59 06/20/24 02:23 Hydromorphone HCl (DiLAUDid 1MG INJ) 0.5 mg Q4H PRN IV SEVERE PAIN (7-10) IF NPO 06/20/24 02:00 06/25/24 01:59 Famotidine (Pepcid 20mg Vial) 20 mg Q24H IV 06/20/24 09:00 07/20/24 08:59 Acetaminophen/ Codeine Phosphate (TYLenol-coDEINE TAB) 1 tab Q6H PRN PO MODERATE PAIN (4-6) 06/20/24 02:00 07/20/24 01:59 Acetaminophen/ Codeine Phosphate (TYLenol-coDEINE TAB) 2 tab Q6H PRN PO SEVERE PAIN (7-10) 06/20/24 02:00 07/20/24 01:59 Piperacillin Sod/ Tazobactam Sod (Zosyn 3.375gm+NS 50ml) 3.375 gm Q8H IVPB 06/20/24 03:30 06/30/24 03:29 06/20/24 03:22 Vancomycin HCl (Vancomycin Protocol) 1 each AD IV 06/20/24 04:00 07/04/24 03:59 UNV ATTESTATION BY PHYSICIAN I have seen and examined the patient. I reviewed the documentation, medical decision making, and treatment plan as noted by the mid-level provider above. I agree with the findings and plan of care. jayden Parham MD, AISHWARYA MD Jun 22, 2024 12:28
--- NOTE | 2024-06-22 13:01 | HMCIMG ---
INDICATION: Pneumomediastinum TECHNIQUE: CHEST 2VWS COMPARISON: 06/21/2024 FINDINGS/IMPRESSION: Prominent perihilar markings which may represent viral infection/reactive airway disease, less likely early pneumonia. Correlate clinically. No definite pneumomediastinum is identified. Cardiac silhouette is within normal limits. Mild degenerative changes of the spine. The visualized upper abdomen appears unremarkable.
[2024-06-23] VITALS (7 sets, daily range): BP systolic 119–157; BP diastolic 54–87; PULSE 45–50; RESP 18–20; TEMP 97.1–98.7; O2SAT 98–99
[2024-06-23 05:37] LABS: BASOPHILS # (AUTO) 0.03 K/uL (0.00-0.20); BASOPHILS % (AUTO) 0.4 % (0.0-5.0); EOSINOPHILS # (AUTO) 0.07 K/uL (0.00-0.70); HEMATOCRIT 39.8 % (42-54); IMMATURE GRANULOCYTE ABSOLUTE 0.01 K/uL (0-1); LYMPHOCYTES # (AUTO) 1.4 K/uL (1.0-4.8); LYMPHOCYTES % (AUTO) 19.8 % (21.0-51.0); MEAN CORPUSCULAR HEMOGLOBIN 29.6 pg (27.0-33.0); MEAN CORPUSCULAR HGB CONC 33.2 g/dL (32.0-36.0); MEAN CORPUSCULAR VOLUME 89.2 fL (79-99); MONOCYTES # (AUTO) 0.9 K/uL (0.1-1.0); MONOCYTES % (AUTO) 13.5 % (3.0-13.0); NEUTROPHILS # (AUTO) 4.5 K/uL (1.8-7.7); NEUTROPHILS % (AUTO) 65.2 % (40.0-77.0); PLATELET COUNT (AUTO) 242 K/uL (130-400); RED BLOOD CELL COUNT(AUTO) 4.46 MIL/uL (4.50-6.20); RED CELL DISTRIBUTION WIDTH 12.8 % (11.0-15.5); WHITE BLOOD COUNT (AUTO) 6.9 K/uL (4.8-10.8)
[2024-06-23 05:49] LABS: ALBUMIN 3.1 g/dL (3.5-5.0); BILIRUBIN,TOTAL 0.6 mg/dL (0.2-1.0); CREATININE 0.9 mg/dL (0.5-1.3); POTASSIUM 3.6 mmol/L (3.5-5.1); TOTAL PROTEIN, SERUM 6.3 g/dL (6.0-8.3); VANCOMYCIN TROUGH 13.7 UG/ML (10.0-20.0)
--- NOTE | 2024-06-23 10:02 | PN ---
[facility] PROGRESS NOTE Date Patient Seen: Jun 23, 2024 Time of Visit: 09:58 Supervising Physician: [Dr. 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 Patient continues on non-rebreather mask at 15 L with 100% oxygen. Patient was admitted with a pneumomediastinum, critical Care was consulted for the same. There was an attempt to transfer the patient for higher level of care but patient was not accepted. Cardiothoracic surgery was consulted for the same, pending evaluation and recommendation. GI was consulted as this may be more related to his hyperemesis syndrome with possible Delores-Choudhary tear of esophagus. Patient denies any pain at rest but states pain is triggered with movement or deep inspiration. Denies any cough with phlegm or hemoptysis. Denies hematemesis prior to arrival, no vomiting while admitted. Denies any melena or hematoch eezia. No current respiratory distress, continues on NRB.] 06/23 pressure is 132/61 with a heart rate of 48, afebrile. Patient continues on 3 L NC. WBC is 6, hemoglobin 13, platelets 242. CMP is unremarkable without electrolyte derangement, creatinine 0.9. CXR from yesterday is within normal limits without pneumothorax. Patient is weaned off of non-rebreather currently on nasal cannula @3LNC. He feels improved, states pain is improved. Pending gastrografin imaging study today. No further pulmonology workup is necessary. Patient may continue on supplemental oxygen as needed and wean off as tolerated. Recommend to continue with GI study and further GI workup as warranted. On behalf of [facility], thank you for this interesting consult. We will sign off, but please feel free to reach out with questions or reconsult as needed. REVIEW OF SYSTEMS: Const: [no fever, fatigue, or weight changes] Eyes:[ no recent vision problems] ENT: [No congestion, ear pain, or sore throat] C/V: [no chest pain, palpitations or edema] Resp: [No cough, congestion, wheezing , or Shortness of breath] GI: [Yes to upper quadrant abdominal pain, nausea and vomiting. As per patient it has resolved. : [No incontinence of or dyuria] M/S: [No joint or pain swelling] Skin: [No rash] Neuro: [no headache, focal numbness, or weakness, dizziness or seizures] Psych: [no depression or anxiety] Heme: [no abnormal bruising or bleeding] Lymph: [no swollen glands] PHYSICAL EXAM: GENERAL: alert, weak, awake oriented x 3 HEENT: EOMI, Sclera non icteric, moist mucosa NECK: Supple, no JVD, trachea midline LUNGS: Clear breath sounds bilaterally. No wheezes HEART: Regular rate and rhythm. Normal S1 and S2, without murmurs ABD: Abdomen soft, nontender. 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 Vital Signs (last 8hr) Date Time Temp Pulse Resp B/P (MAP) Pulse Ox O2 Delivery O2 Flow Rate FiO2 06/23/24 08:00 97.7 48 18 132/61 99 Nasal Cannula 3.0 06/23/24 04:00 98.8 45 19 121/55 99 Nasal Cannula 3.0 LABS: Hematology Labs: Test 06/23/24 05:26 Range/Units White Blood Count 6.9 4.8-10.8 K/uL Red Blood Count 4.46 L 4.50-6.20 MIL/uL Hemoglobin 13.2 L 14.0-18.0 g/dL Hematocrit 39.8 L 42-54 % Mean Corpuscular Volume 89.2 79-99 fL Mean Corpuscular Hemoglobin 29.6 27.0-33.0 pg Mean Corpuscular Hemoglobin Concent 33.2 32.0-36.0 g/dL Red Cell Distribution Width 12.8 11.0-15.5 % Platelet Count 242 130-400 K/uL Mean Platelet Volume 10.3 7.5-10.5 fL Immature Granulocyte % (Auto) 0.1 0-1 % Neutrophils (%) (Auto) 65.2 40.0-77.0 % Lymphocytes (%) (Auto) 19.8 L 21.0-51.0 % Monocytes (%) (Auto) 13.5 H 3.0-13.0 % Eosinophils (%) (Auto) 1.0 0.0-8.0 % Basophils (%) (Auto) 0.4 0.0-5.0 % Neutrophils # (Auto) 4.5 1.8-7.7 K/uL Lymphocytes # (Auto) 1.4 1.0-4.8 K/uL Monocytes # (Auto) 0.9 0.1-1.0 K/uL Eosinophils # (Auto) 0.07 0.00-0.70 K/uL Basophils # (Auto) 0.03 0.00-0.20 K/uL Absolute Immature Granulocyte (auto 0.01 0-1 K/uL Nucleated Red Blood Cells 0.0 0.0-0.19 % Chemistry Labs: Test 06/23/24 05:26 06/23/24 05:17 Range/Units Sodium Level 142 136-145 mmol/L Potassium Level 3.6 3.5-5.1 mmol/L Chloride Level 104 101-111 mmol/L Carbon Dioxide Level 33 H 21-32 mmol/L Blood Urea Nitrogen 14 7-18 mg/dL Creatinine 0.9 0.5-1.3 mg/dL Glomerular Filtration Rate Calc 123 >90 mL/min Random Glucose 77 70-105 mg/dL Total Calcium 8.7 8.5-10.1 mg/dL Total Bilirubin 0.6 0.2-1.0 mg/dL Aspartate Amino Transf (AST/SGOT) 29 10-37 U/L Alanine Aminotransferase (ALT/SGPT) 34 12-78 U/L Alkaline Phosphatase 62 50-136 U/L Total Protein 6.3 6.0-8.3 g/dL Albumin 3.1 L 3.5-5.0 g/dL Whole Blood Glucose 81 70-110 MG/DL Coagulation Labs: Test 06/22/24 05:04 Range/Units Prothrombin Time 10.9 9.6-11.6 SEC Prothromb Time International Ratio 0.97 0.85-1.15 Activated Partial Thromboplast Time 29.1 26.3-35.5 SEC D-Dimer Quantitative (PE/DVT) 279 0-500 ng/mL DIAGNOSTICS / RADIOLOGY RESULTS: [INDICATION: Pneumomediastinum TECHNIQUE: CHEST 2VWS COMPARISON: 06/21/2024 FINDINGS/IMPRESSION: Prominent perihilar markings which may represent viral infection/reactive airway disease, less likely early pneumonia. Correlate clinically. No definite pneumomediastinum is identified. Cardiac silhouette is within normal limits. Mild degenerative changes of the spine. The visualized upper abdomen appears unremarkable.] PLAN NEURO: Minimize central acting medications as possible. Maintain fall precautions, adequate lighting during the day PULMONARY: Supplemental 02 as needed. Maintain aspiration precautions at all times CARDIOVASCULAR: Follow hemodynamics. Vital signs per facility protocol GI & NUTRITION: Continue with nutritional support. Continue stool softeners and laxatives as needed. KIDNEYS & ELECTROLYTES: Strict monitoring of intake, output and overall fluid balance. Avoid nephrotoxic medications to the extent possible. Medications to be dosed according to renal function. Monitor electrolytes and replace as needed ENDOCRINE: Maintain blood glucose between 100-180 at all times. Hypoglycemia protocol in place INFECTIOUS DISEASE: Trend temperature, WBC and procalcitonin level Follow cultures, deescalate antibiotics as soon as possible. Panculture if new onset fever ONCOLOGY/HEMATOLOGY/COAGULATION: Monitor for s/s of bleeding Monitor hemoglobin, coagulation studies as needed SKIN: Pressure ulcer prevention per facility protocol Specialty mattress ORTHO/REHAB: Continue PT/OT Prophylaxis: Continue GI and DVT prophylaxis Code Status: Full Resuscitation Disposition: TBD Other: Total patient care time exceeds 35 minutes excluding all procedures. BECKA COLLAZO Jun 23, 2024 10:02
--- NOTE | 2024-06-23 10:49 | PN ---
[facility] PROGRESS NOTE Date of Service: Jun 23, 2024 Time of Service: 10:49 SUBJECTIVE: 23-year-old male presents to ED with complains of progressively worsening right upper quadrant pain associated with intractable nausea and vomiting for the past two days. The patient describes the pain as sharp, constant and radiating to the back with an intensity of 8 out of 10. Patient also reports that the pain is exacerbated by eating and drinking. The patient reports multiple episodes of non-bloody, non-bilious vomiting which have been relieved with Zofran on admission. Patient denies chills, fever, chest pain or shortness of breath. Patient also denies recent trauma, significant changes in bowel habits. Patient reports no esophageal or gastric conditions. He does reports history of THC use. . CT of the abdomen and pelvis showed critical pneumomediastinum and retroperitoneal emphysema. CTS, was consulted. Patient will be transferred to higher level of care for possible emergency surgical intervention. Chest x-ray noted for cardiomegaly Dr. Mariah Levy and he recommended patient be transferred to [place] or [place]. [facility] spoke to patient and spoke to the nurse in charge nurse and medical secretary receptionist, It for to start transfer. 06/20-Patient was seen at sleeping, with his mother at the bedside. Vitals afebrile pulse 63, RR 16, BP 151/85, 99 saturation on room air. WBC 7.5, HB 15.5, sodium 139, potassium 4.1, BUN25 , creatinine 1.3 . Critical care consult noted. Patient is currently on vancomycin and Zosyn. 06/21-patient was seen at the bedside stable and orientedx3. Vitals 96.6, pulse 52, RR 18 , BP 152/82, 100% saturation on non-rebreather mask, flow rate 15 liters/minute. Critical care consult noted, ordered for chest CT without contrast-Pneumomediastinum of uncertain etiology. No pneumothorax. Clear lungs. Critical care says there is no need of ICU admission the patient is stable and can be downgraded to med surge with telemetry. Continue patient on vanco and Zosyn. We will continue to monitor. Patient could not be transferred to the higher center of care, as they did not accept. 06/22-patient was seen at the bedside, complaining of right-sided chest pressure and lower back pain, still not able to get anything down continues to vomit even with small amount of water. We did a stat chest x-ray,Prominent perihilar markings which may represent viral infection/reactive airway disease, less likely early pneumonia. Correlate clinically. No definite pneumomediastinum is identified.Cardiac silhouette is within normal limits. Mild degenerative changes of the spine.The visualized upper abdomen appears unremarkable. Informed critical care team. Suspecting esophageal tear, scheduled for a barium swallow study, unfortunately the test can not be done today as the technicians for it and not available. The test will be done likely tomorrow. We will continue to monitor the patient. Vitals stable on non-rebreather mask 15 liters/minute. GI consult noted 06/23 pressure is 132/61 with a heart rate of 48, afebrile. Patient continues on 3 L NC. WBC is 6, hemoglobin 13, platelets 242. CMP is unremarkable without electrolyte derangement, creatinine 0.9. CXR from yesterday is within normal limits without pneumothorax. Patient is weaned off of non-rebreather currently on nasal cannula @3LNC. He feels improved, states pain is improved. Pending gastrografin imaging study today. No further pulmonology workup is necessary. Patient may continue on supplemental oxygen as needed and wean off as tolerated. Recommend to continue with GI study and further GI workup as warranted. REVIEW OF SYSTEMS CONSTITUTIONAL: Denies fevers, chills, or night sweats. No unintentional weight loss reported. NEUROLOGICAL: Denies headache, amaurosis fugax, motor weakness, sensory deficit, vertigo/spinning sensation, gait abnormalities, or tremors. ENT: No hearing loss, otalgia, otorrhea, rhinitis, rhinorrhea, hoarseness, or sore throat. CARDIOVASCULAR: Denies any exertional angina, dyspnea on exertion, orthopnea, paroxysmal nocturnal dyspnea, palpitations, life-threatening arrhythmias, claudication. PULMONARY: Denies any shortness of breath, cough, phlegm/sputum, hemoptysis, pleuritic chest pain. SLEEP: Denies morning headaches, daytime somnolence or napping. Denies difficulty falling asleep, staying asleep, waking from sleep. Denies knowledge of snoring. GASTROINTESTINAL: Denies any type of dysphagia to either liquids or solids. Positive for nausea, vomiting, pyrosis, early satiety, abdominal pain, diarrhea, constipation, or changes in stool consistency or caliber. Denies coffee-ground emesis, hematemesis, hematochezia, or melanotic stools. GENITOURINARY: Denies frequency, urgency, nocturia, hematuria or incontinence (Storage/Irritative symptoms.) Low urinary stream, straining to void, urinary intermittency or hesitancy, splitting of the voiding stream, terminal dribbling. ENDOCRINOLOGIC: Denies polyuria, polydipsia, polyphagia or heat/cold intolerances. HEMATOLOGIC: Denies thrombophilia/previous clots, or coagulopathy/bleeding disorders. ONCOLOGIC: Denies personal history of malignancy. DERMATOLOGIC: Denies rashes or pruritus. PSYCHIATRIC: Denies any suicidal or homicidal ideation. Denies hallucinations. PHYSICAL EXAM GENERAL APPEARANCE: The patient is awake, alert, and oriented, in no acute cardiopulmonary distress. NEUROLOGICAL: Cranial nerves II-XII grossly intact. Motor is 5/5 in bilateral upper and lower extremities proximal to distal. No sensory deficits. HEENT: Face is symmetric. Pupils are equal and reactive. Extraocular movements are intact. NECK: Supple. No JVD. No thyromegaly. No submental, submandibular, pre- /postauricular, occipital or supraclavicular lymphadenopathy. CHEST: Normal chest expansion. No Telemetry. LUNGS: Absence of any rales, rhonchi or any wheezing. CARDIOVASCULAR: Regular. S1 and S2 normal. No appreciable rubs, murmurs or gallops. ABDOMEN: Soft, nontender, and nondistended. There is no rebound, voluntary guarding, or rigidity. : Deferred. No Iglesias. EXTREMITIES: Non-edematous and not cyanotic. No clubbing. Good capillary refill. SKIN: No skin breakdown. Vital Signs (last 8hr) Date Time Temp Pulse Resp B/P (MAP) Pulse Ox O2 Delivery O2 Flow Rate FiO2 06/23/24 08:00 99 Nasal Cannula* 3 32 06/23/24 08:00 97.7 48 18 132/61 99 Nasal Cannula 3.0 06/23/24 04:00 98.8 45 19 121/55 99 Nasal Cannula 3.0 LABS: Laboratory: Test 06/23/24 05:26 06/23/24 05:17 06/22/24 05:04 Range/Units White Blood Count 6.9 4.8-10.8 K/uL Red Blood Count 4.46 L 4.50-6.20 MIL/uL Hemoglobin 13.2 L 14.0-18.0 g/dL Hematocrit 39.8 L 42-54 % Mean Corpuscular Volume 89.2 79-99 fL Mean Corpuscular Hemoglobin 29.6 27.0-33.0 pg Mean Corpuscular Hemoglobin Concent 33.2 32.0-36.0 g/dL Red Cell Distribution Width 12.8 11.0-15.5 % Platelet Count 242 130-400 K/uL Mean Platelet Volume 10.3 7.5-10.5 fL Immature Granulocyte % (Auto) 0.1 0-1 % Neutrophils (%) (Auto) 65.2 40.0-77.0 % Lymphocytes (%) (Auto) 19.8 L 21.0-51.0 % Monocytes (%) (Auto) 13.5 H 3.0-13.0 % Eosinophils (%) (Auto) 1.0 0.0-8.0 % Basophils (%) (Auto) 0.4 0.0-5.0 % Neutrophils # (Auto) 4.5 1.8-7.7 K/uL Lymphocytes # (Auto) 1.4 1.0-4.8 K/uL Monocytes # (Auto) 0.9 0.1-1.0 K/uL Eosinophils # (Auto) 0.07 0.00-0.70 K/uL Basophils # (Auto) 0.03 0.00-0.20 K/uL Absolute Immature Granulocyte (auto 0.01 0-1 K/uL Nucleated Red Blood Cells 0.0 0.0-0.19 % Sodium Level 142 136-145 mmol/L Potassium Level 3.6 3.5-5.1 mmol/L Chloride Level 104 101-111 mmol/L Carbon Dioxide Level 33 H 21-32 mmol/L Blood Urea Nitrogen 14 7-18 mg/dL Creatinine 0.9 0.5-1.3 mg/dL Glomerular Filtration Rate Calc 123 >90 mL/min Random Glucose 77 70-105 mg/dL Total Calcium 8.7 8.5-10.1 mg/dL Total Bilirubin 0.6 0.2-1.0 mg/dL Aspartate Amino Transf (AST/SGOT) 29 10-37 U/L Alanine Aminotransferase (ALT/SGPT) 34 12-78 U/L Alkaline Phosphatase 62 50-136 U/L Total Protein 6.3 6.0-8.3 g/dL Albumin 3.1 L 3.5-5.0 g/dL Vancomycin Level Trough 13.7 10.0-20.0 UG/ML Whole Blood Glucose 81 70-110 MG/DL Prothrombin Time 10.9 9.6-11.6 SEC Prothromb Time International Ratio 0.97 0.85-1.15 Activated Partial Thromboplast Time 29.1 26.3-35.5 SEC D-Dimer Quantitative (PE/DVT) 279 0-500 ng/mL Current Medications Medications (Trade) Dose Ordered Sig/Bee Route PRN Reason Start Time Stop Time Status Last Admin Dose Admin Acetaminophen (TYLenol 325MG TAB) 650 mg Q4H PRN PO MILD PAIN (1-3) 06/20/24 02:00 07/20/24 01:59 Acetaminophen (TYLenol 325MG TAB) 650 mg Q6H PRN PO TEMPERATURE GREATER THAN 101.5 06/20/24 02:00 07/20/24 01:59 Acetaminophen/ Codeine Phosphate (TYLenol-coDEINE TAB) 1 tab Q6H PRN PO MODERATE PAIN (4-6) 06/20/24 02:00 07/20/24 01:59 06/21/24 08:33 1 TAB Acetaminophen/ Codeine Phosphate (TYLenol-coDEINE TAB) 2 tab Q6H PRN PO SEVERE PAIN (7-10) 06/20/24 02:00 07/20/24 01:59 Ceftriaxone Sodium (ROCEphine 1G INJ) 1 gm Q24H IV 06/20/24 02:00 06/20/24 03:35 DC 06/20/24 02:23 1 GM Dextrose (D50w) 50 ml AD PRN IV HYPOGLYCEMIA PROTOCOL 06/21/24 15:00 07/21/24 14:59 Doxycycline Hyclate (Doxycycline Hyclate) 100 mg BID PO 06/21/24 21:00 06/21/24 17:00 DC Famotidine (Pepcid 20mg Vial) 20 mg Q24H IV 06/20/24 09:00 07/20/24 08:59 06/23/24 08:53 20 MG Glucagon (Glucagon 1mg Kit) 1 mg AD PRN IM HYPOGLYCEMIA PROTOCOL 06/21/24 15:00 07/21/24 14:59 Hydromorphone HCl (DiLAUDid 1MG INJ) 0.5 mg Q4H PRN IV SEVERE PAIN (7-10) IF NPO 06/20/24 02:00 06/25/24 01:59 06/23/24 08:53 0.5 MG Insulin Human Regular (humuLIN R 100 UNIT/ML 3ML) INSULIN SLIDING SCAL... ACHS SQ 06/21/24 16:30 07/21/24 16:29 Lactated Ringer's 1,000 ml @ 75 mls/hr [id number] IV 06/21/24 17:00 07/21/24 16:59 06/22/24 06:22 75 MLS/HR Magnesium Sulfate 50 ml @ 0 mls/hr PROTOCOL PRN IV PROTOCOL 06/21/24 15:00 07/21/24 14:59 Ondansetron HCl (zoFRAN 4MG INJ) 4 mg Q6H PRN IV NAUSEA/VOMITING 06/20/24 02:00 07/20/24 01:59 06/23/24 07:23 4 MG Piperacillin Sod/ Tazobactam Sod (Zosyn 3.375gm+NS 50ml) 3.375 gm Q8H IV 06/21/24 17:00 07/01/24 16:59 06/23/24 08:53 3.375 GM Piperacillin Sod/ Tazobactam Sod (Zosyn 3.375gm+NS 50ml) 3.375 gm Q8H IVPB 06/20/24 03:30 06/21/24 15:53 DC 06/21/24 12:52 3.375 GM Potassium Chloride 100 ml @ 100 mls/hr AD PRN IV POTASSIUM PROTOCOL 06/21/24 15:00 07/21/24 14:59 Potassium Chloride (K-Dur/Klor-Con 20meq) 20 meq AD PRN PO POTASSIUM PROTOCOL 06/21/24 15:00 07/21/24 14:59 Potassium Chloride (KCl 10% Elixir 20meq/15ml) 20 meq AD PRN PO POTASSIUM PROTOCOL 06/21/24 15:00 07/21/24 14:59 Promethazine HCl (Phenergan) 25 mg ONCE STAT IM 06/22/24 04:40 06/22/24 04:43 DC 06/22/24 04:46 25 MG Sodium Chloride 1,000 ml @ 100 mls/hr Q10H IV 06/20/24 02:00 06/21/24 15:43 DC 06/21/24 08:35 100 MLS/HR Sodium Chloride (NS 50ml) 50 ml AD IV 06/20/24 03:00 06/20/24 03:08 DC Vancomycin HCl 250 ml @ 125 mls/hr Q24H IV 06/21/24 04:30 06/21/24 15:53 DC 06/21/24 04:41 125 MLS/HR Vancomycin HCl 250 ml @ 125 mls/hr Q8H IV 06/22/24 06:00 07/02/24 05:59 06/23/24 06:15 125 MLS/HR Vancomycin HCl (Vancomycin Protocol) 1 each AD IV 06/20/24 04:00 06/21/24 15:53 DC Vancomycin HCl (Vancomycin Protocol) 1 each AD IV 06/21/24 17:00 07/01/24 16:59 DIAGNOSTICS / RADIOLOGY: [ ] ASSESSMENT: Pneumomediastinum and retroperitoneal emphysema POA Intractable right upper quadrant pain POA Intractable nausea and vomiting POA Acute kidney injury POA Electrolyte derangement POA THC dependency ] PLAN: Patient shifted to [facility] Critical care consulted signed off gi consult pending Continue Vancomycin and Zosyn PRN medication for nausea, vomiting, pain, hypokalemia, hypomagnesemia, hypoglycemia, hyperglycemia as needed Consulted cardiothoracic surgeon for further recommendations for possible urgent surgical intervention. We will monitor in the a.m. labs cbc,cmp, PT and APTT, D-dimers. On DVT and GI prophylaxis Patient will be monitoring closely, until further recommendations Current Medications Medications (Trade) Dose Ordered Sig/Bee Route PRN Reason Start Time Stop Time Status Last Admin Acetaminophen (TYLenol 325MG TAB) 650 mg Q6H PRN PO TEMPERATURE GREATER THAN 101.5 06/20/24 02:00 07/20/24 01:59 Acetaminophen (TYLenol 325MG TAB) 650 mg Q4H PRN PO MILD PAIN (1-3) 06/20/24 02:00 07/20/24 01:59 Ondansetron HCl (zoFRAN 4MG INJ) 4 mg Q6H PRN IV NAUSEA/VOMITING 06/20/24 02:00 07/20/24 01:59 Sodium Chloride 1,000 ml @ 100 mls/hr Q10H IV 06/20/24 02:00 07/20/24 01:59 06/20/24 02:23 Hydromorphone HCl (DiLAUDid 1MG INJ) 0.5 mg Q4H PRN IV SEVERE PAIN (7-10) IF NPO 06/20/24 02:00 06/25/24 01:59 Famotidine (Pepcid 20mg Vial) 20 mg Q24H IV 06/20/24 09:00 07/20/24 08:59 Acetaminophen/ Codeine Phosphate (TYLenol-coDEINE TAB) 1 tab Q6H PRN PO MODERATE PAIN (4-6) 06/20/24 02:00 07/20/24 01:59 Acetaminophen/ Codeine Phosphate (TYLenol-coDEINE TAB) 2 tab Q6H PRN PO SEVERE PAIN (7-10) 06/20/24 02:00 07/20/24 01:59 Piperacillin Sod/ Tazobactam Sod (Zosyn 3.375gm+NS 50ml) 3.375 gm Q8H IVPB 06/20/24 03:30 06/30/24 03:29 06/20/24 03:22 Vancomycin HCl (Vancomycin Protocol) 1 each AD IV 06/20/24 04:00 07/04/24 03:59 UNV ATTESTATION BY PHYSICIAN I have seen and examined the patient. I reviewed the documentation, medical decision making, and treatment plan as noted by the mid-level provider above. I agree with the findings and plan of care. jayden Parham MD, AISHWARYA MD Jun 23, 2024 10:49
--- NOTE | 2024-06-23 11:31 | CONS ---
GASTROENTEROLOGY CONSULTATION NOTE Date of Consultation: Jun 23, 2024 Time of Consultation: 11:31 History of Present Illness: This is a 23-year-old male with past medical history of THC use who presented due to worsening right upper quadrant pain with nausea and vomiting. Patient reported multiple episodes of nonbloody vomiting. Upon further evaluation he had a CT scan that revealed mild pneumomediastinum. We were consulted for concern for esophageal leak. Patient is pending Gastrografin esophagram. Review of Systems: CONSTITUTIONAL: No malaise or change in sensation of wellbeing. ENMT: No rhinorrhea, otorrhea, sinus pain, ear ache. CARDIOVASCULAR: No angina, palpitations, orthopnea or paroxysmal dyspnea. RESPIRATORY: No SOB. GASTROINTESTINAL: No abdominal pain, nausea, vomiting, diarrhea, hematemesis, melena or change in the patient's habitual bowel movements consistency/number. GENITOURINARY: No dysuria, hematuria or change in bladder continence. MUSCULOSKELETAL: No new muscle pain or decrease in muscular strength. No new joint swelling, redness or tenderness. SKIN: No new rash. Past Medical History: PAST MEDICAL HISTORY: [ Intractable nausea and vomiting THC use ] PAST SURGICAL HISTORY: [Denies ] PAST SOCIAL HISTORY: [ Patient lives at home with grandmother who is at his bedside. Patient reports he is 100% independent with ADLs and does not requires assistance with ambulation. Patient denies the use of tobacco products, denies the use of alcohol. He admits to THC use occasionally. ] FAMILY HISTORY: [ Non-reported ] Coded Allergies: metoclopramide (Unverified Allergy, Unknown, 06/19/24) Coded Allergies: metoclopramide (Unverified Allergy, Unknown, 06/19/24) Physical Exam: GEN: Awake, alert, oriented in person, time and place, and in no acute distress. HEENT: No sinus tenderness. Tympanic membranes were not examined. No rhinorrhea. Oral pharyngeal mucosa is pink, moist and within normal limits. Neck is supple with no cervical lymphadenopathy, thyromegaly or JVD. CHEST: Inspection, palpation and percussion of the chest were unremarkable. Lung auscultation revealed normal breath sounds bilaterally. CARDIAC: PMI is within normal limits. Heart sounds are regular. Normal S1, S2. No gallop or murmur. ABD: Soft, non-tender and not distended. No peritoneal signs on palpation. No organomegaly. Normal bowel sounds. EXT: No cyanosis or clubbing. No edema. SKIN: Intact. No rashes. JOINTS: No evidence of synovitis or acute arthritis. NEURO: Alert and oriented to name, place and person. Cranial nerve examination is unremarkable. No focal motor deficits. Normal speech. Gait is normal. Strength is normal. Vital Sign (Last 24 Hours) 06/23/24 08:00 Temp 97.7 Pulse 48 Resp 18 B/P (MAP) 132/61 Pulse Ox 99 O2 Delivery Nasal Cannula* O2 Flow Rate 3 FiO2 32 Intake & Output (last 24hrs) 06/22/24 06/22/24 06/23/24 15:00 23:00 07:00 Output Total 650 ml 400 ml Balance -650 ml -400 ml Laboratory: [ ] Laboratory: Test 06/23/24 05:26 06/23/24 05:17 06/22/24 05:04 Range/Units White Blood Count 6.9 4.8-10.8 K/uL Red Blood Count 4.46 L 4.50-6.20 MIL/uL Hemoglobin 13.2 L 14.0-18.0 g/dL Hematocrit 39.8 L 42-54 % Mean Corpuscular Volume 89.2 79-99 fL Mean Corpuscular Hemoglobin 29.6 27.0-33.0 pg Mean Corpuscular Hemoglobin Concent 33.2 32.0-36.0 g/dL Red Cell Distribution Width 12.8 11.0-15.5 % Platelet Count 242 130-400 K/uL Mean Platelet Volume 10.3 7.5-10.5 fL Immature Granulocyte % (Auto) 0.1 0-1 % Neutrophils (%) (Auto) 65.2 40.0-77.0 % Lymphocytes (%) (Auto) 19.8 L 21.0-51.0 % Monocytes (%) (Auto) 13.5 H 3.0-13.0 % Eosinophils (%) (Auto) 1.0 0.0-8.0 % Basophils (%) (Auto) 0.4 0.0-5.0 % Neutrophils # (Auto) 4.5 1.8-7.7 K/uL Lymphocytes # (Auto) 1.4 1.0-4.8 K/uL Monocytes # (Auto) 0.9 0.1-1.0 K/uL Eosinophils # (Auto) 0.07 0.00-0.70 K/uL Basophils # (Auto) 0.03 0.00-0.20 K/uL Absolute Immature Granulocyte (auto 0.01 0-1 K/uL Nucleated Red Blood Cells 0.0 0.0-0.19 % Sodium Level 142 136-145 mmol/L Potassium Level 3.6 3.5-5.1 mmol/L Chloride Level 104 101-111 mmol/L Carbon Dioxide Level 33 H 21-32 mmol/L Blood Urea Nitrogen 14 7-18 mg/dL Creatinine 0.9 0.5-1.3 mg/dL Glomerular Filtration Rate Calc 123 >90 mL/min Random Glucose 77 70-105 mg/dL Total Calcium 8.7 8.5-10.1 mg/dL Total Bilirubin 0.6 0.2-1.0 mg/dL Aspartate Amino Transf (AST/SGOT) 29 10-37 U/L Alanine Aminotransferase (ALT/SGPT) 34 12-78 U/L Alkaline Phosphatase 62 50-136 U/L Total Protein 6.3 6.0-8.3 g/dL Albumin 3.1 L 3.5-5.0 g/dL Vancomycin Level Trough 13.7 10.0-20.0 UG/ML Whole Blood Glucose 81 70-110 MG/DL Prothrombin Time 10.9 9.6-11.6 SEC Prothromb Time International Ratio 0.97 0.85-1.15 Activated Partial Thromboplast Time 29.1 26.3-35.5 SEC D-Dimer Quantitative (PE/DVT) 279 0-500 ng/mL Current Medications Medications (Trade) Dose Ordered Sig/Bee Route PRN Reason Start Time Stop Time Status Last Admin Dose Admin Acetaminophen (TYLenol 325MG TAB) 650 mg Q4H PRN PO MILD PAIN (1-3) 06/20/24 02:00 07/20/24 01:59 Acetaminophen (TYLenol 325MG TAB) 650 mg Q6H PRN PO TEMPERATURE GREATER THAN 101.5 06/20/24 02:00 07/20/24 01:59 Acetaminophen/ Codeine Phosphate (TYLenol-coDEINE TAB) 1 tab Q6H PRN PO MODERATE PAIN (4-6) 06/20/24 02:00 07/20/24 01:59 06/21/24 08:33 1 TAB Acetaminophen/ Codeine Phosphate (TYLenol-coDEINE TAB) 2 tab Q6H PRN PO SEVERE PAIN (7-10) 06/20/24 02:00 07/20/24 01:59 Ceftriaxone Sodium (ROCEphine 1G INJ) 1 gm Q24H IV 06/20/24 02:00 06/20/24 03:35 DC 06/20/24 02:23 1 GM Dextrose (D50w) 50 ml AD PRN IV HYPOGLYCEMIA PROTOCOL 06/21/24 15:00 07/21/24 14:59 Doxycycline Hyclate (Doxycycline Hyclate) 100 mg BID PO 06/21/24 21:00 06/21/24 17:00 DC Famotidine (Pepcid 20mg Vial) 20 mg Q24H IV 06/20/24 09:00 07/20/24 08:59 06/23/24 08:53 20 MG Glucagon (Glucagon 1mg Kit) 1 mg AD PRN IM HYPOGLYCEMIA PROTOCOL 06/21/24 15:00 07/21/24 14:59 Hydromorphone HCl (DiLAUDid 1MG INJ) 0.5 mg Q4H PRN IV SEVERE PAIN (7-10) IF NPO 06/20/24 02:00 06/25/24 01:59 06/23/24 08:53 0.5 MG Insulin Human Regular (humuLIN R 100 UNIT/ML 3ML) INSULIN SLIDING SCAL... ACHS SQ 06/21/24 16:30 07/21/24 16:29 Lactated Ringer's 1,000 ml @ 75 mls/hr [id number] IV 06/21/24 17:00 07/21/24 16:59 06/22/24 06:22 75 MLS/HR Magnesium Sulfate 50 ml @ 0 mls/hr PROTOCOL PRN IV PROTOCOL 06/21/24 15:00 07/21/24 14:59 Ondansetron HCl (zoFRAN 4MG INJ) 4 mg Q6H PRN IV NAUSEA/VOMITING 06/20/24 02:00 07/20/24 01:59 06/23/24 07:23 4 MG Piperacillin Sod/ Tazobactam Sod (Zosyn 3.375gm+NS 50ml) 3.375 gm Q8H IV 06/21/24 17:00 07/01/24 16:59 06/23/24 08:53 3.375 GM Piperacillin Sod/ Tazobactam Sod (Zosyn 3.375gm+NS 50ml) 3.375 gm Q8H IVPB 06/20/24 03:30 06/21/24 15:53 DC 06/21/24 12:52 3.375 GM Potassium Chloride 100 ml @ 100 mls/hr AD PRN IV POTASSIUM PROTOCOL 06/21/24 15:00 07/21/24 14:59 Potassium Chloride (K-Dur/Klor-Con 20meq) 20 meq AD PRN PO POTASSIUM PROTOCOL 06/21/24 15:00 07/21/24 14:59 Potassium Chloride (KCl 10% Elixir 20meq/15ml) 20 meq AD PRN PO POTASSIUM PROTOCOL 06/21/24 15:00 07/21/24 14:59 Promethazine HCl (Phenergan) 25 mg ONCE STAT IM 06/22/24 04:40 06/22/24 04:43 DC 06/22/24 04:46 25 MG Sodium Chloride 1,000 ml @ 100 mls/hr Q10H IV 06/20/24 02:00 06/21/24 15:43 DC 06/21/24 08:35 100 MLS/HR Sodium Chloride (NS 50ml) 50 ml AD IV 06/20/24 03:00 06/20/24 03:08 DC Vancomycin HCl 250 ml @ 125 mls/hr Q24H IV 06/21/24 04:30 06/21/24 15:53 DC 06/21/24 04:41 125 MLS/HR Vancomycin HCl 250 ml @ 125 mls/hr Q8H IV 06/22/24 06:00 07/02/24 05:59 06/23/24 06:15 125 MLS/HR Vancomycin HCl (Vancomycin Protocol) 1 each AD IV 06/20/24 04:00 06/21/24 15:53 DC Vancomycin HCl (Vancomycin Protocol) 1 each AD IV 06/21/24 17:00 07/01/24 16:59 Diagnostics / Radiology: [COPY/PASTE HERE IF NO REPORTS PLEASE DELETE SECTION] Assessment: N/V Abnormal imaging with pneumomediastinum Plan: Obtain esophagram with gastrograffin SARAHI FINNEGAN [employer] Jun 23, 2024 11:31
[2024-06-23] MEDS: PoTASSium chloRIDE 20MEQ/100ML 100 ML IV PRN (19:51)
[2024-06-23] MEDS ORDERED: GLUCAGON 1MG KIT 1 MG ML IM PRN (20:30)
[2024-06-23] MEDS ORDERED: DEXTROSE 50%-WATER 50 ML DISP.SYRIN IV PRN (20:30)
[2024-06-24] VITALS (7 sets, daily range): BP systolic 128–153; BP diastolic 58–79; PULSE 44–51; RESP 18–20; TEMP 97.1–98.6; O2SAT 98–99
[2024-06-24] MEDS ORDERED: hydroMORPHone 0.5 MG SYG (0.5MG/0.5ML) IV PRN (08:30)
[2024-06-24] MEDS: hydroMORPHone 0.5 MG SYG (0.5MG/0.5ML) IV PRN (13:19)
[2024-06-24] MEDS ORDERED: DIATR MEGLU/DIATRIZOATE SODIUM 30 ML BOTTLE ONE ×2 (13:34→17:05)
--- NOTE | 2024-06-24 15:16 | PN ---
GASTROENTEROLOGY PROGRESS NOTE Date of Visit: Jun 24, 2024 Time of Visit: 15:16 Events / Notes: [ ] Review of Systems: CONSTITUTIONAL: No malaise or change in sensation of wellbeing. ENMT: No rhinorrhea, otorrhea, sinus pain, ear ache. CARDIOVASCULAR: No angina, palpitations, orthopnea or paroxysmal dyspnea. RESPIRATORY: No SOB. GASTROINTESTINAL: No abdominal pain, nausea, vomiting, diarrhea, hematemesis, melena or change in the patient's habitual bowel movements consistency/number. GENITOURINARY: No dysuria, hematuria or change in bladder continence. MUSCULOSKELETAL: No new muscle pain or decrease in muscular strength. No new joint swelling, redness or tenderness. SKIN: No new rash. Physical Exam: GEN: Awake, alert, oriented in person, time and place, and in no acute distress. HEENT: No sinus tenderness. Tympanic membranes were not examined. No rhinorrhea. Oral pharyngeal mucosa is pink, moist and within normal limits. Neck is supple with no cervical lymphadenopathy, thyromegaly or JVD. CHEST: Inspection, palpation and percussion of the chest were unremarkable. Lung auscultation revealed normal breath sounds bilaterally. CARDIAC: PMI is within normal limits. Heart sounds are regular. Normal S1, S2. No gallop or murmur. ABD: Soft, non-tender and not distended. No peritoneal signs on palpation. No organomegaly. Normal bowel sounds. EXT: No cyanosis or clubbing. No edema. SKIN: Intact. No rashes. JOINTS: No evidence of synovitis or acute arthritis. NEURO: Alert and oriented to name, place and person. Cranial nerve examination is unremarkable. No focal motor deficits. Normal speech. Gait is normal. Strength is normal. Vital Signs (last 8hr) Date Time Temp Pulse Resp B/P (MAP) Pulse Ox O2 Delivery O2 Flow Rate FiO2 06/24/24 12:00 98.1 45 18 136/69 100 Nasal Cannula 2.0 06/24/24 08:00 98.4 48 18 133/58 98 Nasal Cannula 3.0 Laboratory: [ ] Laboratory: Test 06/24/24 13:17 06/23/24 11:36 06/23/24 05:26 Range/Units Vancomycin Level Trough 18.4 # 10.0-20.0 UG/ML Whole Blood Glucose 72 70-110 MG/DL White Blood Count 6.9 4.8-10.8 K/uL Red Blood Count 4.46 L 4.50-6.20 MIL/uL Hemoglobin 13.2 L 14.0-18.0 g/dL Hematocrit 39.8 L 42-54 % Mean Corpuscular Volume 89.2 79-99 fL Mean Corpuscular Hemoglobin 29.6 27.0-33.0 pg Mean Corpuscular Hemoglobin Concent 33.2 32.0-36.0 g/dL Red Cell Distribution Width 12.8 11.0-15.5 % Platelet Count 242 130-400 K/uL Mean Platelet Volume 10.3 7.5-10.5 fL Immature Granulocyte % (Auto) 0.1 0-1 % Neutrophils (%) (Auto) 65.2 40.0-77.0 % Lymphocytes (%) (Auto) 19.8 L 21.0-51.0 % Monocytes (%) (Auto) 13.5 H 3.0-13.0 % Eosinophils (%) (Auto) 1.0 0.0-8.0 % Basophils (%) (Auto) 0.4 0.0-5.0 % Neutrophils # (Auto) 4.5 1.8-7.7 K/uL Lymphocytes # (Auto) 1.4 1.0-4.8 K/uL Monocytes # (Auto) 0.9 0.1-1.0 K/uL Eosinophils # (Auto) 0.07 0.00-0.70 K/uL Basophils # (Auto) 0.03 0.00-0.20 K/uL Absolute Immature Granulocyte (auto 0.01 0-1 K/uL Nucleated Red Blood Cells 0.0 0.0-0.19 % Sodium Level 142 136-145 mmol/L Potassium Level 3.6 3.5-5.1 mmol/L Chloride Level 104 101-111 mmol/L Carbon Dioxide Level 33 H 21-32 mmol/L Blood Urea Nitrogen 14 7-18 mg/dL Creatinine 0.9 0.5-1.3 mg/dL Glomerular Filtration Rate Calc 123 >90 mL/min Random Glucose 77 70-105 mg/dL Total Calcium 8.7 8.5-10.1 mg/dL Total Bilirubin 0.6 0.2-1.0 mg/dL Aspartate Amino Transf (AST/SGOT) 29 10-37 U/L Alanine Aminotransferase (ALT/SGPT) 34 12-78 U/L Alkaline Phosphatase 62 50-136 U/L Total Protein 6.3 6.0-8.3 g/dL Albumin 3.1 L 3.5-5.0 g/dL Current Medications Medications (Trade) Dose Ordered Sig/Bee Route PRN Reason Start Time Stop Time Status Last Admin Dose Admin Acetaminophen (TYLenol 325MG TAB) 650 mg Q4H PRN PO MILD PAIN (1-3) 06/20/24 02:00 07/20/24 01:59 Acetaminophen (TYLenol 325MG TAB) 650 mg Q6H PRN PO TEMPERATURE GREATER THAN 101.5 06/20/24 02:00 07/20/24 01:59 Acetaminophen/ Codeine Phosphate (TYLenol-coDEINE TAB) 1 tab Q6H PRN PO MODERATE PAIN (4-6) 06/20/24 02:00 07/20/24 01:59 06/24/24 04:52 1 TAB Acetaminophen/ Codeine Phosphate (TYLenol-coDEINE TAB) 2 tab Q6H PRN PO SEVERE PAIN (7-10) 06/20/24 02:00 07/20/24 01:59 Ceftriaxone Sodium (ROCEphine 1G INJ) 1 gm Q24H IV 06/20/24 02:00 06/20/24 03:35 DC 06/20/24 02:23 1 GM Dextrose (D50w) 50 ml AD PRN IV HYPOGLYCEMIA PROTOCOL 06/21/24 15:00 06/24/24 08:02 DC Dextrose (D50w) 50 ml AD PRN IV HYPOGLYCEMIA PROTOCOL 06/23/24 20:30 07/23/24 20:29 Doxycycline Hyclate (Doxycycline Hyclate) 100 mg BID PO 06/21/24 21:00 06/21/24 17:00 DC Famotidine (Pepcid 20mg Vial) 20 mg Q24H IV 06/20/24 09:00 07/20/24 08:59 06/24/24 07:48 20 MG Glucagon (Glucagon 1mg Kit) 1 mg AD PRN IM HYPOGLYCEMIA PROTOCOL 06/21/24 15:00 06/24/24 08:02 DC Glucagon (Glucagon 1mg Kit) 1 mg AD PRN IM HYPOGLYCEMIA PROTOCOL 06/23/24 20:30 07/23/24 20:29 Hydromorphone HCl (DiLAUDid 0.5MG INJ) 0.5 mg Q4H PRN IV SEVERE PAIN (7-10) IF NPO 06/24/24 08:30 06/24/24 08:04 DC Hydromorphone HCl (DiLAUDid 0.5MG INJ) 0.5 mg Q4H PRN IV SEVERE PAIN (7-10) IF NPO 06/24/24 12:00 06/29/24 11:59 06/24/24 13:19 0.5 MG Hydromorphone HCl (DiLAUDid 1MG INJ) 0.5 mg Q4H PRN IV SEVERE PAIN (7-10) IF NPO 06/20/24 02:00 06/24/24 08:03 DC 06/24/24 07:48 0.5 MG Insulin Human Regular (humuLIN R 100 UNIT/ML 3ML) INSULIN SLIDING SCAL... ACHS SQ 06/21/24 16:30 07/21/24 16:29 Lactated Ringer's 1,000 ml @ 75 mls/hr [id number] IV 06/21/24 17:00 07/21/24 16:59 06/24/24 01:10 75 MLS/HR Magnesium Sulfate 50 ml @ 0 mls/hr PROTOCOL PRN IV PROTOCOL 06/21/24 15:00 07/21/24 14:59 Ondansetron HCl (zoFRAN 4MG INJ) 4 mg Q6H PRN IV NAUSEA/VOMITING 06/20/24 02:00 07/20/24 01:59 06/24/24 02:36 4 MG Piperacillin Sod/ Tazobactam Sod (Zosyn 3.375gm+NS 50ml) 3.375 gm Q8H IV 06/21/24 17:00 07/01/24 16:59 06/24/24 07:48 3.375 GM Piperacillin Sod/ Tazobactam Sod (Zosyn 3.375gm+NS 50ml) 3.375 gm Q8H IVPB 06/20/24 03:30 06/21/24 15:53 DC 06/21/24 12:52 3.375 GM Potassium Chloride 100 ml @ 100 mls/hr AD PRN IV POTASSIUM PROTOCOL 06/21/24 15:00 07/21/24 14:59 06/23/24 19:51 100 MLS/HR Potassium Chloride (K-Dur/Klor-Con 20meq) 20 meq AD PRN PO POTASSIUM PROTOCOL 06/21/24 15:00 07/21/24 14:59 Potassium Chloride (KCl 10% Elixir 20meq/15ml) 20 meq AD PRN PO POTASSIUM PROTOCOL 06/21/24 15:00 07/21/24 14:59 Promethazine HCl (Phenergan) 25 mg ONCE STAT IM 06/22/24 04:40 06/22/24 04:43 DC 06/22/24 04:46 25 MG Sodium Chloride 1,000 ml @ 100 mls/hr Q10H IV 06/20/24 02:00 06/21/24 15:43 DC 06/21/24 08:35 100 MLS/HR Sodium Chloride (NS 50ml) 50 ml AD IV 06/20/24 03:00 06/20/24 03:08 DC Vancomycin HCl 250 ml @ 125 mls/hr Q24H IV 06/21/24 04:30 06/21/24 15:53 DC 06/21/24 04:41 125 MLS/HR Vancomycin HCl 250 ml @ 125 mls/hr Q8H IV 06/22/24 06:00 07/02/24 05:59 06/24/24 04:54 125 MLS/HR Vancomycin HCl (Vancomycin Protocol) 1 each AD IV 06/20/24 04:00 06/21/24 15:53 DC Vancomycin HCl (Vancomycin Protocol) 1 each AD IV 06/21/24 17:00 07/01/24 16:59 Diagnostics / Radiology: [COPY/PASTE HERE IF NO REPORTS PLEASE DELETE SECTION] Assessment: N/V Abnormal imaging with pneumomediastinum Plan: Obtain esophagram with gastrograffin SARAHI FINNEGAN [employer] Jun 24, 2024 15:16
--- NOTE | 2024-06-24 16:15 | PN ---
[facility] PROGRESS NOTE Date of Service: Jun 24, 2024 Time of Service: 16:15 SUBJECTIVE: 23-year-old male presents to ED with complains of progressively worsening right upper quadrant pain associated with intractable nausea and vomiting for the past two days. The patient describes the pain as sharp, constant and radiating to the back with an intensity of 8 out of 10. Patient also reports that the pain is exacerbated by eating and drinking. The patient reports multiple episodes of non-bloody, non-bilious vomiting which have been relieved with Zofran on admission. Patient denies chills, fever, chest pain or shortness of breath. Patient also denies recent trauma, significant changes in bowel habits. Patient reports no esophageal or gastric conditions. He does reports history of THC use. . CT of the abdomen and pelvis showed critical pneumomediastinum and retroperitoneal emphysema. CTS, was consulted. Patient will be transferred to higher level of care for possible emergency surgical intervention. Chest x-ray noted for cardiomegaly Dr. Mariah Levy and he recommended patient be transferred to [place] or [place]. [facility] spoke to patient and spoke to the nurse in charge nurse and litigation legal secretary, It for to start transfer. 06/20-Patient was seen at sleeping, with his mother at the bedside. Vitals afebrile pulse 63, RR 16, BP 151/85, 99 saturation on room air. WBC 7.5, HB 15.5, sodium 139, potassium 4.1, BUN25 , creatinine 1.3 . Critical care consult noted. Patient is currently on vancomycin and Zosyn. 06/21-patient was seen at the bedside stable and orientedx3. Vitals 96.6, pulse 52, RR 18 , BP 152/82, 100% saturation on non-rebreather mask, flow rate 15 liters/minute. Critical care consult noted, ordered for chest CT without contrast-Pneumomediastinum of uncertain etiology. No pneumothorax. Clear lungs. Critical care says there is no need of ICU admission the patient is stable and can be downgraded to med surge with telemetry. Continue patient on vanco and Zosyn. We will continue to monitor. Patient could not be transferred to the higher center of care, as they did not accept. 06/22-patient was seen at the bedside, complaining of right-sided chest pressure and lower back pain, still not able to get anything down continues to vomit even with small amount of water. We did a stat chest x-ray,Prominent perihilar markings which may represent viral infection/reactive airway disease, less likely early pneumonia. Correlate clinically. No definite pneumomediastinum is identified.Cardiac silhouette is within normal limits. Mild degenerative changes of the spine.The visualized upper abdomen appears unremarkable. Informed critical care team. Suspecting esophageal tear, scheduled for a barium swallow study, unfortunately the test can not be done today as the technicians for it and not available. The test will be done likely tomorrow. We will continue to monitor the patient. Vitals stable on non-rebreather mask 15 liters/minute. GI consult noted 06/23 pressure is 132/61 with a heart rate of 48, afebrile. Patient continues on 3 L NC. WBC is 6, hemoglobin 13, platelets 242. CMP is unremarkable without electrolyte derangement, creatinine 0.9. CXR from yesterday is within normal limits without pneumothorax. Patient is weaned off of non-rebreather currently on nasal cannula @3LNC. He feels improved, states pain is improved. Pending gastrografin imaging study today. No further pulmonology workup is necessary. Patient may continue on supplemental oxygen as needed and wean off as tolerated. Recommend to continue with GI study and further GI workup as warranted. 06/24-patient was seen at the bedside stable and oriented. Hemodynamically stable. Patient and patient family are really upset as the patient has not had been eating for the past 1 week. Gastroenterology consult was noted. 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 Instead patient had CT abdomen/pelvis with contrast with oral Gastrografin. RESULTS-Normal chest examination. Clear lungs. No pulmonary embolism. Noinfiltrates. No mediastinal lymphadenopathy.Normal abdomen and pelvis exam.Resolution of the previously seen pneumomediastinum. No evidence of esophageal perforation. Spoke with gastro account adjuster- we will start him on clear liquids and advance diet as toleraterd REVIEW OF SYSTEMS CONSTITUTIONAL: Denies fevers, chills, or night sweats. No unintentional weight loss reported. NEUROLOGICAL: Denies headache, amaurosis fugax, motor weakness, sensory deficit, vertigo/spinning sensation, gait abnormalities, or tremors. ENT: No hearing loss, otalgia, otorrhea, rhinitis, rhinorrhea, hoarseness, or sore throat. CARDIOVASCULAR: Denies any exertional angina, dyspnea on exertion, orthopnea, paroxysmal nocturnal dyspnea, palpitations, life-threatening arrhythmias, claudication. PULMONARY: Denies any shortness of breath, cough, phlegm/sputum, hemoptysis, pleuritic chest pain. SLEEP: Denies morning headaches, daytime somnolence or napping. Denies difficulty falling asleep, staying asleep, waking from sleep. Denies knowledge of snoring. GASTROINTESTINAL: Denies any type of dysphagia to either liquids or solids. Positive for nausea, vomiting, pyrosis, early satiety, abdominal pain, diarrhea, constipation, or changes in stool consistency or caliber. Denies coffee-ground emesis, hematemesis, hematochezia, or melanotic stools. GENITOURINARY: Denies frequency, urgency, nocturia, hematuria or incontinence (Storage/Irritative symptoms.) Low urinary stream, straining to void, urinary intermittency or hesitancy, splitting of the voiding stream, terminal dribbling. ENDOCRINOLOGIC: Denies polyuria, polydipsia, polyphagia or heat/cold intolerances. HEMATOLOGIC: Denies thrombophilia/previous clots, or coagulopathy/bleeding disorders. ONCOLOGIC: Denies personal history of malignancy. DERMATOLOGIC: Denies rashes or pruritus. PSYCHIATRIC: Denies any suicidal or homicidal ideation. Denies hallucinations. PHYSICAL EXAM GENERAL APPEARANCE: The patient is awake, alert, and oriented, in no acute cardiopulmonary distress. NEUROLOGICAL: Cranial nerves II-XII grossly intact. Motor is 5/5 in bilateral upper and lower extremities proximal to distal. No sensory deficits. HEENT: Face is symmetric. Pupils are equal and reactive. Extraocular movements are intact. NECK: Supple. No JVD. No thyromegaly. No submental, submandibular, pre- /postauricular, occipital or supraclavicular lymphadenopathy. CHEST: Normal chest expansion. No Telemetry. LUNGS: Absence of any rales, rhonchi or any wheezing. CARDIOVASCULAR: Regular. S1 and S2 normal. No appreciable rubs, murmurs or gallops. ABDOMEN: Soft, nontender, and nondistended. There is no rebound, voluntary guarding, or rigidity. : Deferred. No Iglesias. EXTREMITIES: Non-edematous and not cyanotic. No clubbing. Good capillary refill. SKIN: No skin breakdown. Vital Signs (last 8hr) Date Time Temp Pulse Resp B/P (MAP) Pulse Ox O2 Delivery O2 Flow Rate FiO2 06/24/24 12:00 98.1 45 18 136/69 100 Nasal Cannula 2.0 LABS: Laboratory: Test 06/24/24 13:17 06/23/24 11:36 06/23/24 05:26 Range/Units Vancomycin Level Trough 18.4 # 10.0-20.0 UG/ML Whole Blood Glucose 72 70-110 MG/DL White Blood Count 6.9 4.8-10.8 K/uL Red Blood Count 4.46 L 4.50-6.20 MIL/uL Hemoglobin 13.2 L 14.0-18.0 g/dL Hematocrit 39.8 L 42-54 % Mean Corpuscular Volume 89.2 79-99 fL Mean Corpuscular Hemoglobin 29.6 27.0-33.0 pg Mean Corpuscular Hemoglobin Concent 33.2 32.0-36.0 g/dL Red Cell Distribution Width 12.8 11.0-15.5 % Platelet Count 242 130-400 K/uL Mean Platelet Volume 10.3 7.5-10.5 fL Immature Granulocyte % (Auto) 0.1 0-1 % Neutrophils (%) (Auto) 65.2 40.0-77.0 % Lymphocytes (%) (Auto) 19.8 L 21.0-51.0 % Monocytes (%) (Auto) 13.5 H 3.0-13.0 % Eosinophils (%) (Auto) 1.0 0.0-8.0 % Basophils (%) (Auto) 0.4 0.0-5.0 % Neutrophils # (Auto) 4.5 1.8-7.7 K/uL Lymphocytes # (Auto) 1.4 1.0-4.8 K/uL Monocytes # (Auto) 0.9 0.1-1.0 K/uL Eosinophils # (Auto) 0.07 0.00-0.70 K/uL Basophils # (Auto) 0.03 0.00-0.20 K/uL Absolute Immature Granulocyte (auto 0.01 0-1 K/uL Nucleated Red Blood Cells 0.0 0.0-0.19 % Sodium Level 142 136-145 mmol/L Potassium Level 3.6 3.5-5.1 mmol/L Chloride Level 104 101-111 mmol/L Carbon Dioxide Level 33 H 21-32 mmol/L Blood Urea Nitrogen 14 7-18 mg/dL Creatinine 0.9 0.5-1.3 mg/dL Glomerular Filtration Rate Calc 123 >90 mL/min Random Glucose 77 70-105 mg/dL Total Calcium 8.7 8.5-10.1 mg/dL Total Bilirubin 0.6 0.2-1.0 mg/dL Aspartate Amino Transf (AST/SGOT) 29 10-37 U/L Alanine Aminotransferase (ALT/SGPT) 34 12-78 U/L Alkaline Phosphatase 62 50-136 U/L Total Protein 6.3 6.0-8.3 g/dL Albumin 3.1 L 3.5-5.0 g/dL Current Medications Medications (Trade) Dose Ordered Sig/Bee Route PRN Reason Start Time Stop Time Status Last Admin Dose Admin Acetaminophen (TYLenol 325MG TAB) 650 mg Q4H PRN PO MILD PAIN (1-3) 06/20/24 02:00 07/20/24 01:59 Acetaminophen (TYLenol 325MG TAB) 650 mg Q6H PRN PO TEMPERATURE GREATER THAN 101.5 06/20/24 02:00 07/20/24 01:59 Acetaminophen/ Codeine Phosphate (TYLenol-coDEINE TAB) 1 tab Q6H PRN PO MODERATE PAIN (4-6) 06/20/24 02:00 07/20/24 01:59 06/24/24 04:52 1 TAB Acetaminophen/ Codeine Phosphate (TYLenol-coDEINE TAB) 2 tab Q6H PRN PO SEVERE PAIN (7-10) 06/20/24 02:00 07/20/24 01:59 Ceftriaxone Sodium (ROCEphine 1G INJ) 1 gm Q24H IV 06/20/24 02:00 06/20/24 03:35 DC 06/20/24 02:23 1 GM Dextrose (D50w) 50 ml AD PRN IV HYPOGLYCEMIA PROTOCOL 06/21/24 15:00 06/24/24 08:02 DC Dextrose (D50w) 50 ml AD PRN IV HYPOGLYCEMIA PROTOCOL 06/23/24 20:30 07/23/24 20:29 Doxycycline Hyclate (Doxycycline Hyclate) 100 mg BID PO 06/21/24 21:00 06/21/24 17:00 DC Famotidine (Pepcid 20mg Vial) 20 mg Q24H IV 06/20/24 09:00 07/20/24 08:59 06/24/24 07:48 20 MG Glucagon (Glucagon 1mg Kit) 1 mg AD PRN IM HYPOGLYCEMIA PROTOCOL 06/21/24 15:00 06/24/24 08:02 DC Glucagon (Glucagon 1mg Kit) 1 mg AD PRN IM HYPOGLYCEMIA PROTOCOL 06/23/24 20:30 07/23/24 20:29 Hydromorphone HCl (DiLAUDid 0.5MG INJ) 0.5 mg Q4H PRN IV SEVERE PAIN (7-10) IF NPO 06/24/24 08:30 06/24/24 08:04 DC Hydromorphone HCl (DiLAUDid 0.5MG INJ) 0.5 mg Q4H PRN IV SEVERE PAIN (7-10) IF NPO 06/24/24 12:00 06/29/24 11:59 06/24/24 13:19 0.5 MG Hydromorphone HCl (DiLAUDid 1MG INJ) 0.5 mg Q4H PRN IV SEVERE PAIN (7-10) IF NPO 06/20/24 02:00 06/24/24 08:03 DC 06/24/24 07:48 0.5 MG Insulin Human Regular (humuLIN R 100 UNIT/ML 3ML) INSULIN SLIDING SCAL... ACHS SQ 06/21/24 16:30 07/21/24 16:29 Lactated Ringer's 1,000 ml @ 75 mls/hr [id number] IV 06/21/24 17:00 07/21/24 16:59 06/24/24 01:10 75 MLS/HR Magnesium Sulfate 50 ml @ 0 mls/hr PROTOCOL PRN IV PROTOCOL 06/21/24 15:00 07/21/24 14:59 Ondansetron HCl (zoFRAN 4MG INJ) 4 mg Q6H PRN IV NAUSEA/VOMITING 06/20/24 02:00 07/20/24 01:59 06/24/24 02:36 4 MG Piperacillin Sod/ Tazobactam Sod (Zosyn 3.375gm+NS 50ml) 3.375 gm Q8H IV 06/21/24 17:00 07/01/24 16:59 06/24/24 07:48 3.375 GM Piperacillin Sod/ Tazobactam Sod (Zosyn 3.375gm+NS 50ml) 3.375 gm Q8H IVPB 06/20/24 03:30 06/21/24 15:53 DC 06/21/24 12:52 3.375 GM Potassium Chloride 100 ml @ 100 mls/hr AD PRN IV POTASSIUM PROTOCOL 06/21/24 15:00 07/21/24 14:59 06/23/24 19:51 100 MLS/HR Potassium Chloride (K-Dur/Klor-Con 20meq) 20 meq AD PRN PO POTASSIUM PROTOCOL 06/21/24 15:00 07/21/24 14:59 Potassium Chloride (KCl 10% Elixir 20meq/15ml) 20 meq AD PRN PO POTASSIUM PROTOCOL 06/21/24 15:00 07/21/24 14:59 Promethazine HCl (Phenergan) 25 mg ONCE STAT IM 06/22/24 04:40 06/22/24 04:43 DC 06/22/24 04:46 25 MG Sodium Chloride 1,000 ml @ 100 mls/hr Q10H IV 06/20/24 02:00 06/21/24 15:43 DC 06/21/24 08:35 100 MLS/HR Sodium Chloride (NS 50ml) 50 ml AD IV 06/20/24 03:00 06/20/24 03:08 DC Vancomycin HCl 250 ml @ 125 mls/hr Q24H IV 06/21/24 04:30 06/21/24 15:53 DC 06/21/24 04:41 125 MLS/HR Vancomycin HCl 250 ml @ 125 mls/hr Q8H IV 06/22/24 06:00 07/02/24 05:59 06/24/24 15:45 125 MLS/HR Vancomycin HCl (Vancomycin Protocol) 1 each AD IV 06/20/24 04:00 06/21/24 15:53 DC Vancomycin HCl (Vancomycin Protocol) 1 each AD IV 06/21/24 17:00 07/01/24 16:59 DIAGNOSTICS / RADIOLOGY: [ ] ASSESSMENT: Pneumomediastinum and retroperitoneal emphysema POA Intractable right upper quadrant pain POA Intractable nausea and vomiting POA Acute kidney injury POA Electrolyte derangement POA THC dependency ] PLAN: Patient shifted to [facility] Critical care consulted signed off gi consult pending Continue Vancomycin and Zosyn PRN medication for nausea, vomiting, pain, hypokalemia, hypomagnesemia, hypoglycemia, hyperglycemia as needed Consulted cardiothoracic surgeon for further recommendations for possible urgent surgical intervention. We will monitor in the a.m. labs cbc,cmp, PT and APTT, D-dimers. On DVT and GI prophylaxis Patient will be monitoring closely, until further recommendations Current Medications Medications (Trade) Dose Ordered Sig/Bee Route PRN Reason Start Time Stop Time Status Last Admin Acetaminophen (TYLenol 325MG TAB) 650 mg Q6H PRN PO TEMPERATURE GREATER THAN 101.5 06/20/24 02:00 07/20/24 01:59 Acetaminophen (TYLenol 325MG TAB) 650 mg Q4H PRN PO MILD PAIN (1-3) 06/20/24 02:00 07/20/24 01:59 Ondansetron HCl (zoFRAN 4MG INJ) 4 mg Q6H PRN IV NAUSEA/VOMITING 06/20/24 02:00 07/20/24 01:59 Sodium Chloride 1,000 ml @ 100 mls/hr Q10H IV 06/20/24 02:00 07/20/24 01:59 06/20/24 02:23 Hydromorphone HCl (DiLAUDid 1MG INJ) 0.5 mg Q4H PRN IV SEVERE PAIN (7-10) IF NPO 06/20/24 02:00 06/25/24 01:59 Famotidine (Pepcid 20mg Vial) 20 mg Q24H IV 06/20/24 09:00 07/20/24 08:59 Acetaminophen/ Codeine Phosphate (TYLenol-coDEINE TAB) 1 tab Q6H PRN PO MODERATE PAIN (4-6) 06/20/24 02:00 07/20/24 01:59 Acetaminophen/ Codeine Phosphate (TYLenol-coDEINE TAB) 2 tab Q6H PRN PO SEVERE PAIN (7-10) 06/20/24 02:00 07/20/24 01:59 Piperacillin Sod/ Tazobactam Sod (Zosyn 3.375gm+NS 50ml) 3.375 gm Q8H IVPB 06/20/24 03:30 06/30/24 03:29 06/20/24 03:22 Vancomycin HCl (Vancomycin Protocol) 1 each AD IV 06/20/24 04:00 07/04/24 03:59 UNV ATTESTATION BY PHYSICIAN I have seen and examined the patient. I reviewed the documentation, medical decision making, and treatment plan as noted by the mid-level provider above. I agree with the findings and plan of care. Mark Parham AISHWARYA MD Jun 24, 2024 16:15
[2024-06-24] MEDS ORDERED: IOHEXOL 350 MG/ML 100ML INFUS..BTL IV ONE (16:35)
--- NOTE | 2024-06-24 17:46 | HMCIMG ---
Exam Type: CT CHEST/ABD/PELV W/WO CONTRAS Clinical Information: eval pnemomediastinum with oral gastrograffin and IV Contrast Comparison: None CT Dose Index (CTDI): 26.51 mGy Dose Length Product (DLP): 1987.6 total mGy PROTOCOL: Examination is done at 2.5 millimeter volumetric acquisition after contrast administration with Isovue 370, 100 cc IV, without complications. Photography is done at 5 millimeter thick intervals for the thorax. FINDINGS: The thyroid gland is unremarkable. There is no evidence of pulmonary embolism. The airway is intact. The trachea and major bronchi are unremarkable. The chest exam shows no pulmonary nodules or masses. No significant pulmonary parenchymal abnormalities are noted. No pulmonary infiltrates or mass lesions are seen. No pleural effusions are identified. The exam of the liliya and mediastinum is unremarkable. No evidence of hilar enlargement is seen. The aorta shows no aneurysmal dilatation or significant atheromatous calcification. No significant brachiocephalic vascular abnormalities are seen. The heart is unremarkable. It is not enlarged. No significant coronary arterial calcifications are seen. There is no pericardial effusion. The rib cage appears unremarkable. The soft tissues of the chest wall are unremarkable. The dorsal spine shows no significant abnormalities. Please note that the previously visualized pneumomediastinum has completely resolved in this examination. No evidence of nephro or ureterolithiasis is found. No hydronephrosis or ureteral dilatation is seen. For the stomach evaluation in the esophagus, Gastrografin was administered immediately prior to the scan. The examination demonstrates adequate opacification of the entire esophagus and the stomach as well as most of the small and large bowel with oral contrast. The esophagus shows no evidence of extravasation to suggest perforation or leak. Neither does the stomach. The stomach is unremarkable. It shows no wall thickening. No gross ulceration is seen. It is not overly distended. There are no surrounding inflammatory changes. No wall lesions are identified to suggest cancer. The spleen is unremarkable. It is not enlarged. The pancreas shows normal anatomy. It is not fatty replaced. It shows no lesions. The pancreatic duct is not dilated. The gallbladder is unremarkable. It shows no cholelithiasis. The gallbladder wall is normal in thickness. There is no pericholecystic fluid. The is no acute or chronic inflammation noted. The adrenal glands are unremarkable. There is no enlargement. No lesions are noted. The liver is unremarkable. It shows no focal masses. The appendix is unremarkable. It shows no evidence of inflammation. No appendicolith is seen. The small bowel is unremarkable. There is no evidence of dilatation to suggest obstruction. No evidence of adynamic ileus is seen. There is no small bowel wall thickening to suggest enteritis. The colon is unremarkable. The urinary bladder is unremarkable. There is no wall thickening to suggest tumor or inflammation. There are no intraluminal calculi. There are no diverticula. There is no evidence of chronic bladder outlet obstruction. There is no evidence of urinary bladder distention to suggest urinary retention. The other pelvic structures are unremarkable. The bony and vascular structures are unremarkable for the patient's age. Impression: Normal chest examination. Clear lungs. No pulmonary embolism. No infiltrates. No mediastinal lymphadenopathy. Normal abdomen and pelvis exam. Resolution of the previously seen pneumomediastinum. No evidence of esophageal perforation. This study was performed using dose reduction techniques to include automated exposure control and/or adjustment of the mA and/or kV according to patient size.
[2024-06-25] VITALS (7 sets, daily range): BP systolic 135–156; BP diastolic 68–97; PULSE 43–57; RESP 18–21; TEMP 98.1–98.8; O2SAT 94–100
[2024-06-25 10:22] LABS: BASOPHILS # (AUTO) 0.03 K/uL (0.00-0.20); BASOPHILS % (AUTO) 0.4 % (0.0-5.0); EOSINOPHILS # (AUTO) 0.08 K/uL (0.00-0.70); EOSINOPHILS % (AUTO) 1.1 % (0.0-8.0); HEMATOCRIT 39.3 % (42-54); IMMATURE GRANULOCYTE ABSOLUTE 0.03 K/uL (0-1); LYMPHOCYTES # (AUTO) 1.2 K/uL (1.0-4.8); LYMPHOCYTES % (AUTO) 16.4 % (21.0-51.0); MEAN CORPUSCULAR HGB CONC 34.9 g/dL (32.0-36.0); MEAN CORPUSCULAR VOLUME 86.2 fL (79-99); MONOCYTES # (AUTO) 0.8 K/uL (0.1-1.0); MONOCYTES % (AUTO) 10.5 % (3.0-13.0); NEUTROPHILS # (AUTO) 5.3 K/uL (1.8-7.7); NEUTROPHILS % (AUTO) 71.2 % (40.0-77.0); PLATELET COUNT (AUTO) 262 K/uL (130-400); RED BLOOD CELL COUNT(AUTO) 4.56 MIL/uL (4.50-6.20); RED CELL DISTRIBUTION WIDTH 12.3 % (11.0-15.5); WHITE BLOOD COUNT (AUTO) 7.5 K/uL (4.8-10.8)
[2024-06-25 10:38] LABS: ALBUMIN 3.1 g/dL (3.5-5.0); BILIRUBIN,TOTAL 0.5 mg/dL (0.2-1.0); POTASSIUM 3.7 mmol/L (3.5-5.1); TOTAL PROTEIN, SERUM 6.7 g/dL (6.0-8.3)
--- NOTE | 2024-06-25 18:48 | PN ---
[facility] PROGRESS NOTE Date of Service: Jun 25, 2024 Time of Service: 18:48 SUBJECTIVE: 23-year-old male presents to ED with complains of progressively worsening right upper quadrant pain associated with intractable nausea and vomiting for the past two days. The patient describes the pain as sharp, constant and radiating to the back with an intensity of 8 out of 10. Patient also reports that the pain is exacerbated by eating and drinking. The patient reports multiple episodes of non-bloody, non-bilious vomiting which have been relieved with Zofran on admission. Patient denies chills, fever, chest pain or shortness of breath. Patient also denies recent trauma, significant changes in bowel habits. Patient reports no esophageal or gastric conditions. He does reports history of THC use. . CT of the abdomen and pelvis showed critical pneumomediastinum and retroperitoneal emphysema. CTS, was consulted. Patient will be transferred to higher level of care for possible emergency surgical intervention. Chest x-ray noted for cardiomegaly Dr. Mariah Levy and he recommended patient be transferred to [place] or [place]. [facility] spoke to patient and spoke to the nurse in charge nurse and typing secretary, It for to start transfer. 06/20-Patient was seen at sleeping, with his mother at the bedside. Vitals afebrile pulse 63, RR 16, BP 151/85, 99 saturation on room air. WBC 7.5, HB 15.5, sodium 139, potassium 4.1, BUN25 , creatinine 1.3 . Critical care consult noted. Patient is currently on vancomycin and Zosyn. 06/21-patient was seen at the bedside stable and orientedx3. Vitals 96.6, pulse 52, RR 18 , BP 152/82, 100% saturation on non-rebreather mask, flow rate 15 liters/minute. Critical care consult noted, ordered for chest CT without contrast-Pneumomediastinum of uncertain etiology. No pneumothorax. Clear lungs. Critical care says there is no need of ICU admission the patient is stable and can be downgraded to med surge with telemetry. Continue patient on vanco and Zosyn. We will continue to monitor. Patient could not be transferred to the higher center of care, as they did not accept. 06/22-patient was seen at the bedside, complaining of right-sided chest pressure and lower back pain, still not able to get anything down continues to vomit even with small amount of water. We did a stat chest x-ray,Prominent perihilar markings which may represent viral infection/reactive airway disease, less likely early pneumonia. Correlate clinically. No definite pneumomediastinum is identified.Cardiac silhouette is within normal limits. Mild degenerative changes of the spine.The visualized upper abdomen appears unremarkable. Informed critical care team. Suspecting esophageal tear, scheduled for a barium swallow study, unfortunately the test can not be done today as the technicians for it and not available. The test will be done likely tomorrow. We will continue to monitor the patient. Vitals stable on non-rebreather mask 15 liters/minute. GI consult noted 06/23 pressure is 132/61 with a heart rate of 48, afebrile. Patient continues on 3 L NC. WBC is 6, hemoglobin 13, platelets 242. CMP is unremarkable without electrolyte derangement, creatinine 0.9. CXR from yesterday is within normal limits without pneumothorax. Patient is weaned off of non-rebreather currently on nasal cannula @3LNC. He feels improved, states pain is improved. Pending gastrografin imaging study today. No further pulmonology workup is necessary. Patient may continue on supplemental oxygen as needed and wean off as tolerated. Recommend to continue with GI study and further GI workup as warranted. 06/24-patient was seen at the bedside stable and oriented. Hemodynamically stable. Patient and patient family are really upset as the patient has not had been eating for the past 1 week. Gastroenterology consult was noted. 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 Instead patient had CT abdomen/pelvis with contrast with oral Gastrografin. RESULTS-Normal chest examination. Clear lungs. No pulmonary embolism. Noinfiltrates. No mediastinal lymphadenopathy.Normal abdomen and pelvis exam.Resolution of the previously seen pneumomediastinum. No evidence of esophageal perforation. Spoke with gastro soap mixer- we will start him on clear liquids and advance diet as toleraterd. 06/25- stable, tolerating diet well. hemodynamically well.no compliants noted. possible discharge for tomorrow if the patient is stable. REVIEW OF SYSTEMS CONSTITUTIONAL: Denies fevers, chills, or night sweats. No unintentional weight loss reported. NEUROLOGICAL: Denies headache, amaurosis fugax, motor weakness, sensory deficit, vertigo/spinning sensation, gait abnormalities, or tremors. ENT: No hearing loss, otalgia, otorrhea, rhinitis, rhinorrhea, hoarseness, or sore throat. CARDIOVASCULAR: Denies any exertional angina, dyspnea on exertion, orthopnea, paroxysmal nocturnal dyspnea, palpitations, life-threatening arrhythmias, claudication. PULMONARY: Denies any shortness of breath, cough, phlegm/sputum, hemoptysis, pleuritic chest pain. SLEEP: Denies morning headaches, daytime somnolence or napping. Denies difficulty falling asleep, staying asleep, waking from sleep. Denies knowledge of snoring. GASTROINTESTINAL: Denies any type of dysphagia to either liquids or solids. Positive for nausea, vomiting, pyrosis, early satiety, abdominal pain, diarrhea, constipation, or changes in stool consistency or caliber. Denies coffee-ground emesis, hematemesis, hematochezia, or melanotic stools. GENITOURINARY: Denies frequency, urgency, nocturia, hematuria or incontinence (Storage/Irritative symptoms.) Low urinary stream, straining to void, urinary intermittency or hesitancy, splitting of the voiding stream, terminal dribbling. ENDOCRINOLOGIC: Denies polyuria, polydipsia, polyphagia or heat/cold intolerances. HEMATOLOGIC: Denies thrombophilia/previous clots, or coagulopathy/bleeding disorders. ONCOLOGIC: Denies personal history of malignancy. DERMATOLOGIC: Denies rashes or pruritus. PSYCHIATRIC: Denies any suicidal or homicidal ideation. Denies hallucinations. PHYSICAL EXAM GENERAL APPEARANCE: The patient is awake, alert, and oriented, in no acute cardiopulmonary distress. NEUROLOGICAL: Cranial nerves II-XII grossly intact. Motor is 5/5 in bilateral upper and lower extremities proximal to distal. No sensory deficits. HEENT: Face is symmetric. Pupils are equal and reactive. Extraocular movements are intact. NECK: Supple. No JVD. No thyromegaly. No submental, submandibular, pre- /postauricular, occipital or supraclavicular lymphadenopathy. CHEST: Normal chest expansion. No Telemetry. LUNGS: Absence of any rales, rhonchi or any wheezing. CARDIOVASCULAR: Regular. S1 and S2 normal. No appreciable rubs, murmurs or gallops. ABDOMEN: Soft, nontender, and nondistended. There is no rebound, voluntary guarding, or rigidity. : Deferred. No Iglesias. EXTREMITIES: Non-edematous and not cyanotic. No clubbing. Good capillary refill. SKIN: No skin breakdown. Vital Signs (last 8hr) Date Time Temp Pulse Resp B/P (MAP) Pulse Ox O2 Delivery O2 Flow Rate FiO2 06/25/24 12:00 98.8 54 18 135/81 98 Room Air LABS: Laboratory: Test 06/25/24 10:18 06/24/24 13:17 Range/Units White Blood Count 7.5 4.8-10.8 K/uL Red Blood Count 4.56 4.50-6.20 MIL/uL Hemoglobin 13.7 L 14.0-18.0 g/dL Hematocrit 39.3 L 42-54 % Mean Corpuscular Volume 86.2 79-99 fL Mean Corpuscular Hemoglobin 30.0 27.0-33.0 pg Mean Corpuscular Hemoglobin Concent 34.9 32.0-36.0 g/dL Red Cell Distribution Width 12.3 11.0-15.5 % Platelet Count 262 130-400 K/uL Mean Platelet Volume 10.0 7.5-10.5 fL Immature Granulocyte % (Auto) 0.4 0-1 % Neutrophils (%) (Auto) 71.2 40.0-77.0 % Lymphocytes (%) (Auto) 16.4 L 21.0-51.0 % Monocytes (%) (Auto) 10.5 3.0-13.0 % Eosinophils (%) (Auto) 1.1 0.0-8.0 % Basophils (%) (Auto) 0.4 0.0-5.0 % Neutrophils # (Auto) 5.3 1.8-7.7 K/uL Lymphocytes # (Auto) 1.2 1.0-4.8 K/uL Monocytes # (Auto) 0.8 0.1-1.0 K/uL Eosinophils # (Auto) 0.08 0.00-0.70 K/uL Basophils # (Auto) 0.03 0.00-0.20 K/uL Absolute Immature Granulocyte (auto 0.03 0-1 K/uL Nucleated Red Blood Cells 0.0 0.0-0.19 % Sodium Level 140 136-145 mmol/L Potassium Level 3.7 3.5-5.1 mmol/L Chloride Level 102 101-111 mmol/L Carbon Dioxide Level 34 H 21-32 mmol/L Blood Urea Nitrogen 10 7-18 mg/dL Creatinine 1.0 0.5-1.3 mg/dL Glomerular Filtration Rate Calc 108 >90 mL/min Random Glucose 126 H 70-105 mg/dL Total Calcium 8.6 8.5-10.1 mg/dL Total Bilirubin 0.5 0.2-1.0 mg/dL Aspartate Amino Transf (AST/SGOT) 18 10-37 U/L Alanine Aminotransferase (ALT/SGPT) 27 12-78 U/L Alkaline Phosphatase 66 50-136 U/L Total Protein 6.7 6.0-8.3 g/dL Albumin 3.1 L 3.5-5.0 g/dL Vancomycin Level Trough 18.4 # 10.0-20.0 UG/ML Current Medications Medications (Trade) Dose Ordered Sig/Bee Route PRN Reason Start Time Stop Time Status Last Admin Dose Admin Acetaminophen (TYLenol 325MG TAB) 650 mg Q4H PRN PO MILD PAIN (1-3) 06/20/24 02:00 07/20/24 01:59 Acetaminophen (TYLenol 325MG TAB) 650 mg Q6H PRN PO TEMPERATURE GREATER THAN 101.5 06/20/24 02:00 07/20/24 01:59 Acetaminophen/ Codeine Phosphate (TYLenol-coDEINE TAB) 1 tab Q6H PRN PO MODERATE PAIN (4-6) 06/20/24 02:00 07/20/24 01:59 06/25/24 03:13 1 TAB Acetaminophen/ Codeine Phosphate (TYLenol-coDEINE TAB) 2 tab Q6H PRN PO SEVERE PAIN (7-10) 06/20/24 02:00 07/20/24 01:59 Ceftriaxone Sodium (ROCEphine 1G INJ) 1 gm Q24H IV 06/20/24 02:00 06/20/24 03:35 DC 06/20/24 02:23 1 GM Dextrose (D50w) 50 ml AD PRN IV HYPOGLYCEMIA PROTOCOL 06/21/24 15:00 06/24/24 08:02 DC Dextrose (D50w) 50 ml AD PRN IV HYPOGLYCEMIA PROTOCOL 06/23/24 20:30 07/23/24 20:29 Doxycycline Hyclate (Doxycycline Hyclate) 100 mg BID PO 06/21/24 21:00 06/21/24 17:00 DC Famotidine (Pepcid 20mg Vial) 20 mg Q24H IV 06/20/24 09:00 07/20/24 08:59 06/25/24 10:11 20 MG Glucagon (Glucagon 1mg Kit) 1 mg AD PRN IM HYPOGLYCEMIA PROTOCOL 06/21/24 15:00 06/24/24 08:02 DC Glucagon (Glucagon 1mg Kit) 1 mg AD PRN IM HYPOGLYCEMIA PROTOCOL 06/23/24 20:30 07/23/24 20:29 Hydromorphone HCl (DiLAUDid 0.5MG INJ) 0.5 mg Q4H PRN IV SEVERE PAIN (7-10) IF NPO 06/24/24 08:30 06/24/24 08:04 DC Hydromorphone HCl (DiLAUDid 0.5MG INJ) 0.5 mg Q4H PRN IV SEVERE PAIN (7-10) IF NPO 06/24/24 12:00 06/29/24 11:59 06/24/24 13:19 0.5 MG Hydromorphone HCl (DiLAUDid 1MG INJ) 0.5 mg Q4H PRN IV SEVERE PAIN (7-10) IF NPO 06/20/24 02:00 06/24/24 08:03 DC 06/24/24 07:48 0.5 MG Insulin Human Regular (humuLIN R 100 UNIT/ML 3ML) INSULIN SLIDING SCAL... ACHS SQ 06/21/24 16:30 07/21/24 16:29 Lactated Ringer's 1,000 ml @ 75 mls/hr [id number] IV 06/21/24 17:00 07/21/24 16:59 06/25/24 00:25 75 MLS/HR Magnesium Sulfate 50 ml @ 0 mls/hr PROTOCOL PRN IV PROTOCOL 06/21/24 15:00 07/21/24 14:59 Ondansetron HCl (zoFRAN 4MG INJ) 4 mg Q6H PRN IV NAUSEA/VOMITING 06/20/24 02:00 07/20/24 01:59 06/24/24 20:45 4 MG Piperacillin Sod/ Tazobactam Sod (Zosyn 3.375gm+NS 50ml) 3.375 gm Q8H IV 06/21/24 17:00 06/25/24 18:06 DC 06/25/24 10:11 3.375 GM Piperacillin Sod/ Tazobactam Sod (Zosyn 3.375gm+NS 50ml) 3.375 gm Q8H IV 06/25/24 19:30 07/01/24 19:29 Piperacillin Sod/ Tazobactam Sod (Zosyn 3.375gm+NS 50ml) 3.375 gm Q8H IVPB 06/20/24 03:30 06/21/24 15:53 DC 06/21/24 12:52 3.375 GM Potassium Chloride 100 ml @ 100 mls/hr AD PRN IV POTASSIUM PROTOCOL 06/21/24 15:00 07/21/24 14:59 06/23/24 19:51 100 MLS/HR Potassium Chloride (K-Dur/Klor-Con 20meq) 20 meq AD PRN PO POTASSIUM PROTOCOL 06/21/24 15:00 07/21/24 14:59 Potassium Chloride (KCl 10% Elixir 20meq/15ml) 20 meq AD PRN PO POTASSIUM PROTOCOL 06/21/24 15:00 07/21/24 14:59 Promethazine HCl (Phenergan) 25 mg ONCE STAT IM 06/22/24 04:40 06/22/24 04:43 DC 06/22/24 04:46 25 MG Sodium Chloride 1,000 ml @ 100 mls/hr Q10H IV 06/20/24 02:00 06/21/24 15:43 DC 06/21/24 08:35 100 MLS/HR Sodium Chloride (NS 50ml) 50 ml AD IV 06/20/24 03:00 06/20/24 03:08 DC Vancomycin HCl 250 ml @ 125 mls/hr Q24H IV 06/21/24 04:30 06/21/24 15:53 DC 06/21/24 04:41 125 MLS/HR Vancomycin HCl 250 ml @ 125 mls/hr Q8H IV 06/22/24 06:00 07/02/24 05:59 06/25/24 16:15 125 MLS/HR Vancomycin HCl (Vancomycin Protocol) 1 each AD IV 06/20/24 04:00 06/21/24 15:53 DC Vancomycin HCl (Vancomycin Protocol) 1 each AD IV 06/21/24 17:00 07/01/24 16:59 DIAGNOSTICS / RADIOLOGY: [ ] ASSESSMENT: Pneumomediastinum and retroperitoneal emphysema POA Intractable right upper quadrant pain POA Intractable nausea and vomiting POA Acute kidney injury POA Electrolyte derangement POA THC dependency ] PLAN: Patient shifted to [facility] Critical care consulted signed off gi consult pending Continue Vancomycin and Zosyn PRN medication for nausea, vomiting, pain, hypokalemia, hypomagnesemia, hypoglycemia, hyperglycemia as needed Consulted cardiothoracic surgeon for further recommendations for possible urgent surgical intervention. We will monitor in the a.m. labs cbc,cmp, PT and APTT, D-dimers. On DVT and GI prophylaxis Patient will be monitoring closely, until further recommendations Current Medications Medications (Trade) Dose Ordered Sig/Bee Route PRN Reason Start Time Stop Time Status Last Admin Acetaminophen (TYLenol 325MG TAB) 650 mg Q6H PRN PO TEMPERATURE GREATER THAN 101.5 06/20/24 02:00 07/20/24 01:59 Acetaminophen (TYLenol 325MG TAB) 650 mg Q4H PRN PO MILD PAIN (1-3) 06/20/24 02:00 07/20/24 01:59 Ondansetron HCl (zoFRAN 4MG INJ) 4 mg Q6H PRN IV NAUSEA/VOMITING 06/20/24 02:00 07/20/24 01:59 Sodium Chloride 1,000 ml @ 100 mls/hr Q10H IV 06/20/24 02:00 07/20/24 01:59 06/20/24 02:23 Hydromorphone HCl (DiLAUDid 1MG INJ) 0.5 mg Q4H PRN IV SEVERE PAIN (7-10) IF NPO 06/20/24 02:00 06/25/24 01:59 Famotidine (Pepcid 20mg Vial) 20 mg Q24H IV 06/20/24 09:00 07/20/24 08:59 Acetaminophen/ Codeine Phosphate (TYLenol-coDEINE TAB) 1 tab Q6H PRN PO MODERATE PAIN (4-6) 06/20/24 02:00 07/20/24 01:59 Acetaminophen/ Codeine Phosphate (TYLenol-coDEINE TAB) 2 tab Q6H PRN PO SEVERE PAIN (7-10) 06/20/24 02:00 07/20/24 01:59 Piperacillin Sod/ Tazobactam Sod (Zosyn 3.375gm+NS 50ml) 3.375 gm Q8H IVPB 06/20/24 03:30 06/30/24 03:29 06/20/24 03:22 Vancomycin HCl (Vancomycin Protocol) 1 each AD IV 06/20/24 04:00 07/04/24 03:59 UNV ATTESTATION BY PHYSICIAN I have seen and examined the patient. I reviewed the documentation, medical decision making, and treatment plan as noted by the mid-level provider above. I agree with the findings and plan of care. darrell Parham MD, AISHWARYA MD Jun 25, 2024 18:48
[2024-06-25] MEDS: ZOSYN 3.375GM +NS 50ML IV SCH (20:15)
[2024-06-25] MEDS: ZOLPidem TARTrate 5 MG TAB PO PRN (23:17)
[2024-06-26 04:05] VITALS: BP 129/68; PULSE 52; RESP 18; TEMP 97.5
[2024-06-26 08:00] VITALS: BP 148/95; PULSE 55; RESP 17; TEMP 97.8
[2024-06-26 12:00] VITALS: BP 152/92; PULSE 62; RESP 18; TEMP 97.8
--- NOTE | 2024-06-26 13:09 | NUR ---
PATIENT PROVIDED WITH DISCHARGE INSTRUCTIONS AND ADVISED TO FOLLOW UP WITH MD DISCUSSED WITH PRIMARY TEAM SAT BEDSIDE THIS AM. PATIENT AND HIS MOTHER AT BEDSIDE VOICED UNDERSTANDING OF TEACHINGS. PATIENT IS VISIBLY AND HEMODYNAMICALLY STABLE UPON DISCHARGE.
--- NOTE | 2024-06-26 13:40 | DS ---
Discharge Summary Hospital Course Summary: The patient is a 23-year-old male who presented to the emergency department with a 2 day history of progressively worsening right upper quadrant abdominal pain, associated with intractable nausea and vomiting. He described the pain as sharp, constant, radiating to the back, with an intensity of 8/10, which was exacerbated by eating and drinking. The patient also reported multiple episodes of nonbloody, nonbilious vomiting, which was relieved by Zofran on admission. He denied any fever, chills, chest pain, shortness of breath, or recent trauma. The patient also denied significant changes in bowel habits or any history of esophageal or gastric conditions. He acknowledged a history of THC use. Upon admission, the patient's pain was managed with IV morphine, after which he was comfortable and free from acute distress. His vital signs were notable for tachycardia heart rate of 116 and an elevated blood pressure of 146/101, but he was otherwise stable, with oxygen saturation of 98% on room air. Initial laboratory findings revealed acute kidney injury, with a BUN of 22 and a creatinine of 2.3 an elevated glucose. Toxicology screening was positive for opioids and marijuana. Imaging studies, including a CT of the abdomen and pelvis, revealed no significant abnormalities but a CT of the chest showed pneumomediastinum and retroperitoneal emphysema, prompting consultation with Cardiothoracic surgery for potential emergency surgical intervention. The patient was placed on 100% non-rebreather mask to manage the pneumomediastinum and was transferred to a higher level of care for further evaluation. Subsequently on June 22 he complained of right-sided chest pressure in lower back pain, along with persistent vomiting even after consuming small amounts of water. A stat chest x-ray revealed prominent perihilar markings, suggestive of a viral infection or reactive airway disease, but no clear evidence of pneumonia. Given concerns for possible esophageal tear, the patient was scheduled for barium swallow study, although technical difficulties prevented its completion. On June 23 the patient's clinical condition showed signs of improvement. His chemistries and CBC were within normal limits, and a chest x-ray showed no new findings. The patient was weaned from the non breather mask to a nasal cannula with [address] abdomen and pelvis with oral Gastrografin contrast was performed, revealing resolution of the pneumomediastinum and no evidence of esophageal perforation. The patient was started on a clear liquid diet, which was advanced as tolerated. On June 26, the patient was stable, tolerating a regular diet, hemodynamically stable, and able to ambulate independently. He reported no new complaints, and his abdominal exam was unremarkable, with normal bowel movements. His oxygen requirements were minimal and he was saturating at 99% on room air. Given his improvement and stability, the decision was made to discharge him in good condition, with the appropriate follow-up care. Wearing Apparel Assembler(s): BIS-pulmonology Gastroenterology Procedure(s): [facility] [address] [place] [address] IMAGING REPORT Signed PATIENT: TOM CONRAD MR#: [id number] : 2000 SEX: M AGE: 23 LOCATION: EDHIP ORDER 4 STATUS: ADM IN REPORT#: [id number] SERVICE 0154 REASON: right upper quadrant pain, ORDERING PHYSICIAN: SB TEIXEIRA PROCEDURE: ABD PEL WO - CT ABDOMEN/PELVIS W/O CONTRAST Exam Type: CT ABDOMEN/PELVIS W/O CONTRAST Clinical Information: right upper quadrant pain, Comparison: None CT Dose Index (CTDI): 10.20 mGy Dose Length Product (DLP): 530.00 total mGy-cm PROTOCOL: Routine noncontrast helical scanning of the abdomen and pelvis was performed at 5mm collimation. Findings: No evidence of nephro or ureterolithiasis is found. No hydronephrosis or ureteral dilatation is seen. The lung bases are clear. There is mild pneumomediastinum. The stomach is unremarkable. It shows no wall thickening. No gross ulceration is seen. It is not overly distended. There are no surrounding inflammatory changes. No wall lesions are identified to suggest cancer. The spleen is unremarkable. It is not enlarged. The pancreas shows normal anatomy. It is not fatty replaced. It shows no lesions. The pancreatic duct is not dilated. The gallbladder is unremarkable. It shows no cholelithiasis. The gallbladder wall is normal in thickness. There is no pericholecystic fluid. The is no acute or chronic inflammation noted. The adrenal glands are unremarkable. There is no enlargement. No lesions are noted. The liver is unremarkable. It shows no focal masses. The appendix is unremarkable. It shows no evidence of inflammation. No appendicolith is seen. The small bowel is unremarkable. There is no evidence of dilatation to suggest obstruction. No evidence of adynamic ileus is seen. There is no small bowel wall thickening to suggest enteritis. The colon is unremarkable. The urinary bladder is unremarkable. There is no wall thickening to suggest tumor or inflammation. There are no intraluminal calculi. There are no diverticula. There is no evidence of chronic bladder outlet obstruction. There is no evidence of urinary bladder distention to suggest urinary retention. The other pelvic structures are unremarkable. The bony and vascular structures are unremarkable for the patient's age. IMPRESSION: Mild pneumomediastinum. Otherwise normal CT abdomen pelvis. Preliminary report with this information was sent by the on-call radiologist to ordering physicians time of exam.. This study was performed using dose reduction techniques to include automated exposure control and/or adjustment of the mA and/or kV according to patient size. DICTATED BY: JAIME MALAVE MD DATE: 06/20/24846 ELECTRONICALLY SIGNED BY: JAIME MALAVE MD DATE: 06/20/24850 [place] [address] [address] IMAGING REPORT Signed PATIENT: TOM CONRAD MR#: [id number] : 2000 SEX: M AGE: 23 LOCATION: EDHIP ORDER 8 STATUS: ADM IN REPORT#: [id number] SERVICE 3 REASON: pneumomediastinum per CT abd ORDERING PHYSICIAN: CATY VINES [employer]ILITIES MANAGER PROCEDURE: CXR1VW - CHEST 1VW Exam Type: CHEST 1VW Clinical Information: pneumomediastinum per CT abd Comparison: None Findings: The lungs are clear of infiltrates. The heart is enlarged. Bony and soft tissue structures of the chest wall are unremarkable. IMPRESSION: Cardiomegaly. Clear lungs. DICTATED BY: JAIME MALAVE MD DATE: 06/20/24835 ELECTRONICALLY SIGNED BY: JAIME MALAVE MD DATE: 06/20/2439 [place] [address], [place] [address] IMAGING REPORT Signed PATIENT: TOM CONRAD MR#: [id number] : 2000 SEX: M AGE: 23 LOCATION: EDHIP ORDER STATUS: ADM IN REPORT#: [id number] SERVICE 1017 REASON: pneumomediastinum ? ORDERING PHYSICIAN: SCOTT MORGAN PROCEDURE: CHEST WO - CT CHEST W/O CONTRAST CT NONCONTRAST CHEST Comparison Study: none History: pneumomediastinum ? Technique: Helical CT of the chest without IV contrast at 5 mm collimation. Coronal and sagittal reformations also done. CT Dose Index (CTDI): 2.38 mGy Dose Length Product (DLP): 94.8 total mGy-cm Findings: The airway is intact. The trachea and major bronchi are unremarkable. The chest exam shows no pulmonary nodules or masses. No significant pulmonary parenchymal abnormalities are noted. No pulmonary infiltrates or mass lesions are seen. No pleural effusions are identified. There is no pneumothorax. However, there is mild to moderate pneumomediastinum. This is of uncertain etiology. This extends to the base of the neck bilaterally. There is no evidence of pneumomediastinum. The nonenhanced exam of the liliya and mediastinum is unremarkable. No evidence of hilar enlargement is seen. The aorta shows no aneurysmal dilatation or significant atheromatous calcification. No significant brachiocephalic vascular abnormalities are seen. The heart is unremarkable. It is not enlarged. No significant coronary arterial calcifications are seen. There is no pericardial effusion. The rib cage appears unremarkable. The soft tissues of the chest wall are unremarkable. The dorsal spine shows no significant abnormalities. IMPRESSION: Pneumomediastinum of uncertain etiology. No pneumothorax. Clear lungs. This study was performed using dose reduction techniques to include automated exposure control and/or adjustment of the mA and/or kV according to patient size. DICTATED BY: JAIME MALAVE MD DATE: 06/21/24 1138 ELECTRONICALLY SIGNED BY: JAIME MALAVE MD DATE: 06/21/24 113 [facility] [address] [place] [id number] IMAGING REPORT Signed PATIENT: TOM CONRAD MR#: [id number] : 2000 SEX: M AGE: 23 LOCATION: 3AH ORDER 1131 STATUS: ADM IN REPORT#: [id number] SERVICE 1129 REASON: PEUMOMEDIASTINUM ORDERING PHYSICIAN: STANLEY WHALEN MD PROCEDURE: CXR2VW - CHEST 2VWS INDICATION: Pneumomediastinum TECHNIQUE: CHEST 2VWS COMPARISON: 06/21/2024 FINDINGS/IMPRESSION: Prominent perihilar markings which may represent viral infection/reactive airway disease, less likely early pneumonia. Correlate clinically. No definite pneumomediastinum is identified. Cardiac silhouette is within normal limits. Mild degenerative changes of the spine. The visualized upper abdomen appears unremarkable. DICTATED BY: MARIANNE MORAN MD DATE: 06/22/24 1258 ELECTRONICALLY SIGNED BY: MARIANNE MORAN MD DATE: 06/22/[address] [address] IMAGING REPORT Signed PATIENT: TOM CONRAD MR#: [id number] : 2000 SEX: M AGE: 23 LOCATION: 3AH ORDER 1305 [facility] REPORT#: [id number] SERVICE 1250 REASON: eval pnemomediastinum with oral gastrograffin and IV Contrast ORDERING PHYSICIAN: SARAHI FINNEGAN PROCEDURE: CAP WWO - CT CHEST/ABD/PELV W/WO CONTRAS Exam Type: CT CHEST/ABD/PELV W/WO CONTRAS Clinical Information: eval pnemomediastinum with oral gastrograffin and IV Contrast Comparison: None CT Dose Index (CTDI): 26.51 mGy Dose Length Product (DLP): 1987.6 total mGy PROTOCOL: Examination is done at 2.5 millimeter volumetric acquisition after contrast administration with Isovue 370, 100 cc IV, without complications. Photography is done at 5 millimeter thick intervals for the thorax. FINDINGS: The thyroid gland is unremarkable. There is no evidence of pulmonary embolism. The airway is intact. The trachea and major bronchi are unremarkable. The chest exam shows no pulmonary nodules or masses. No significant pulmonary parenchymal abnormalities are noted. No pulmonary infiltrates or mass lesions are seen. No pleural effusions are identified. The exam of the liliya and mediastinum is unremarkable. No evidence of hilar enlargement is seen. The aorta shows no aneurysmal dilatation or significant atheromatous calcification. No significant brachiocephalic vascular abnormalities are seen. The heart is unremarkable. It is not enlarged. No significant coronary arterial calcifications are seen. There is no pericardial effusion. The rib cage appears unremarkable. The soft tissues of the chest wall are unremarkable. The dorsal spine shows no significant abnormalities. Please note that the previously visualized pneumomediastinum has completely resolved in this examination. No evidence of nephro or ureterolithiasis is found. No hydronephrosis or ureteral dilatation is seen. For the stomach evaluation in the esophagus, Gastrografin was administered immediately prior to the scan. The examination demonstrates adequate opacification of the entire esophagus and the stomach as well as most of the small and large bowel with oral contrast. The esophagus shows no evidence of extravasation to suggest perforation or leak. Neither does the stomach. The stomach is unremarkable. It shows no wall thickening. No gross ulceration is seen. It is not overly distended. There are no surrounding inflammatory changes. No wall lesions are identified to suggest cancer. The spleen is unremarkable. It is not enlarged. The pancreas shows normal anatomy. It is not fatty replaced. It shows no lesions. The pancreatic duct is not dilated. The gallbladder is unremarkable. It shows no cholelithiasis. The gallbladder wall is normal in thickness. There is no pericholecystic fluid. The is no acute or chronic inflammation noted. The adrenal glands are unremarkable. There is no enlargement. No lesions are noted. The liver is unremarkable. It shows no focal masses. The appendix is unremarkable. It shows no evidence of inflammation. No appendicolith is seen. The small bowel is unremarkable. There is no evidence of dilatation to suggest obstruction. No evidence of adynamic ileus is seen. There is no small bowel wall thickening to suggest enteritis. The colon is unremarkable. The urinary bladder is unremarkable. There is no wall thickening to suggest tumor or inflammation. There are no intraluminal calculi. There are no diverticula. There is no evidence of chronic bladder outlet obstruction. There is no evidence of urinary bladder distention to suggest urinary retention. The other pelvic structures are unremarkable. The bony and vascular structures are unremarkable for the patient's age. Impression: Normal chest examination. Clear lungs. No pulmonary embolism. No infiltrates. No mediastinal lymphadenopathy. Normal abdomen and pelvis exam. Resolution of the previously seen pneumomediastinum. No evidence of esophageal perforation. This study was performed using dose reduction techniques to include automated exposure control and/or adjustment of the mA and/or kV according to patient size. DICTATED BY: JAIME MALAVE MD DATE: 06/24/241739 ELECTRONICALLY SIGNED BY: JAIME MALAVE MD DATE: 06/24/241745 Assessment/Plan: ASSESSMENT: Pneumomediastinum and retroperitoneal emphysema POA Intractable right upper quadrant pain POA Intractable nausea and vomiting POA Acute kidney injury POA Electrolyte derangement POA THC dependency ] PLAN: Patient shifted to [facility] Critical care consulted signed off gi consult pending Continue Vancomycin and Zosyn PRN medication for nausea, vomiting, pain, hypokalemia, hypomagnesemia, hypoglycemia, hyperglycemia as needed Consulted cardiothoracic surgeon for further recommendations for possible urgent surgical intervention. We will monitor in the a.m. labs cbc,cmp, PT and APTT, D-dimers. On DVT and GI prophylaxis Patient will be monitoring closely, until further recommendations Current Medications Medications (Trade) Dose Ordered Sig/Bee Route PRN Reason Start Time Stop Time Status Last Admin Acetaminophen (TYLenol 325MG TAB) 650 mg Q6H PRN PO TEMPERATURE GREATER THAN 101.5 06/20/24 02:00 07/20/24 01:59 Acetaminophen (TYLenol 325MG TAB) 650 mg Q4H PRN PO MILD PAIN (1-3) 06/20/24 02:00 07/20/24 01:59 Ondansetron HCl (zoFRAN 4MG INJ) 4 mg Q6H PRN IV NAUSEA/VOMITING 06/20/24 02:00 07/20/24 01:59 Sodium Chloride 1,000 ml @ 100 mls/hr Q10H IV 06/20/24 02:00 07/20/24 01:59 06/20/24 02:23 Hydromorphone HCl (DiLAUDid 1MG INJ) 0.5 mg Q4H PRN IV SEVERE PAIN (7-10) IF NPO 06/20/24 02:00 06/25/24 01:59 Famotidine (Pepcid 20mg Vial) 20 mg Q24H IV 06/20/24 09:00 07/20/24 08:59 Acetaminophen/ Codeine Phosphate (TYLenol-coDEINE TAB) 1 tab Q6H PRN PO MODERATE PAIN (4-6) 06/20/24 02:00 07/20/24 01:59 Acetaminophen/ Codeine Phosphate (TYLenol-coDEINE TAB) 2 tab Q6H PRN PO SEVERE PAIN (7-10) 06/20/24 02:00 07/20/24 01:59 Piperacillin Sod/ Tazobactam Sod (Zosyn 3.375gm+NS 50ml) 3.375 gm Q8H IVPB 06/20/24 03:30 06/30/24 03:29 06/20/24 03:22 Vancomycin HCl (Vancomycin Protocol) 1 each AD IV 06/20/24 04:00 07/04/24 03:59 UNV Discharge Instructions: Follow up with primary care physician in 3-5 days. Home Medications: No Active Prescriptions or Reported Meds Medication Profile: No Active Prescriptions or Reported Meds Time spent arranging discharge: 1-30 minutes ATTESTATION BY PHYSICIAN I have seen and examined the patient. I reviewed the documentation, medical decision making, and treatment plan as noted by the resident provider above. I agree with the findings and plan of care. Seng Parham MD, PRIYA N Jun 26, 2024 13:40
== END 2024-06-26 13:15 | disposition home or self-care (01) | DRG 641 ==
LOC: EDH 17:10 → EDHIP 17:11 → 3AH 06-21 13:15
PROVIDERS: ADMIT Hospitalist; ATTEND Hospitalist
DX: E86.0 Dehydration (principal); N17.9 Acute kidney failure, unspecified; K52.9 Noninfective gastroenteritis and colitis, unspecified; J98.2 Interstitial emphysema; F12.20 Cannabis dependence, uncomplicated; Z79.899 Other long term (current) drug therapy
CPT/HCPCS: 36415; 71045; 71046; 71250; 71270; 74176; 74178; 80048; 80053; 80076; 80202; 80305; 81001; 82784; 82948; 83036; 83516; 83690; 83735; 84145; 85025; 85378; 85610; 85730; 96372; 96375; 99285; G0378; J0696; J1171; J1630; J2405; J2470; J2543; J2550; J3480; J3490; J7030; Q9963; Q9967; 3370; J3370